=== PATIENT | male | born 1945 | race Caucasian/White ===

== ENCOUNTER 2017-02-20 21:57 | Emergency (ER) | payer MEDICARE ==
[~2017-02-20] VITALS: Ht 167.6 cm; Wt 63.0 kg
[~2017-02-20 21:57] MED LIST: ASPI81TA2 PO; ATOR40TA64 PO; BISO5TAB2 PO; CLOP75TA33 PO; FERR-70 PO; NITR0.4T39 SL; PANT40TA27 PO; TAMS0.4C47 PO; [UNRECOGNIZED DRUG - CODE] PO CHEW
--- OUTSIDE RECORDS SUMMARY | 2017-02-20 22:01 | XMS REPORT | Referral Summary ---
Author Author [facility] Organization [facility] Address Unknown Phone Unavailable Care Team Providers Care Splitter Hand Name Role Phone Ashley Vizcaino Primary Care Physician [phone] Encounter VC Date(s): 07/13/16 - 07/13/16 [facility] [address] [place] [address]- Discharge Diagnosis: CAP (community acquired pneumonia) Discharge Diagnosis: Anemia Discharge Diagnosis: Cancer of colon Discharge Diagnosis: GERD without esophagitis Discharge Diagnosis: History of BPH w/prostatism & overactive bladder Discharge Diagnosis: Hypertension NOS Discharge Diagnosis: ED (erectile dysfunction) Discharge Diagnosis: Elevated cholesterol Discharge Diagnosis: Depression Discharge Diagnosis: COPD, mild Discharge Disposition: 01-Home or Self Care Attending Physician: Pop Vizcaino MD Admitting Physician: Pop Vizcaino MD Vital Signs Most recent to 1 oldest [Reference Range]: Blood Pressure 130/80 mmHg [90-140/60-90 mmHg] (07/13/16 9:49 AM) Problem List Condition Effective Dates Status Health Status Informant Anemia(Confirmed) Active Cardenas's Active esophagus(Confirmed) Hypertension Active NOS(Confirmed) GERD without Active esophagitis(Confirme d) History of BPH Active w/prostatism & overactive bladder(Confirmed) History of nocturia Active and irregular prostate gland(Confirmed) ED (erectile Active dysfunction)(Confirm ed) Insomnia(Confirmed) Active Cancer of Active colon(Confirmed) Cancer of Active colon(Confirmed) COPD, Active mild(Confirmed) Depression(Confirmed Active ) Elevated Active cholesterol(Confirme d) Skin tag(Confirmed) Active Tobacco Active patient user(Confirmed) Allergies, Adverse Reactions, Alerts Substance Reaction Severity Status acetaminophen Active HYDROcodone Active Medications Aspirin Low Dose 81 mg, Oral, Daily, 0 Refill(s) Start Date: 12/12/14 Status: Ordered CeleXA 10 mg oral tablet 10 mg 1 tabs, Oral, Daily, # 30 tabs, 0 Refill(s), Pharmacy: [id number], 1 tabs Oral Daily Start Date: 06/29/16 Status: Ordered Cialis 5 mg oral tablet 1 tabs, Oral, Daily, as needed for erectile dysfunction, # 20 tabs, 0 Refill(s) , 1 tabs Oral Daily,PRN:as needed for erectile dysfunction Start Date: 10/25/14 Status: Ordered simvastatin 40 mg oral tablet See Instructions, TAKE 1 TABLET EVERY DAY, # 30 tabs, 0 Refill(s), Pharmacy: [facility], TAKE 1 TABLET EVERY DAY Start Date: 06/28/16 Status: Ordered tamsulosin 0.4 mg oral capsule See Instructions, TAKE 1 CAPSULE ONE TIME DAILY AT BEDTIME (NEED APPOINTMENT BEFORE ADDITIONAL REFILLS WILL BE SENT), # 30 caps, 0 Refill(s), Pharmacy: [facility], TAKE 1 CAPSULE ONE TIME DAILY AT BEDTIME (NEED APPOINTMENT BEFORE AD... Start Date: 06/28/16 Status: Ordered triamcinolone 0.1% topical cream 1 stacey, Topical, BID, Rash, # 30 g, 0 Refill(s), Pharmacy: [id number] Start Date: 04/24/14 Status: Ordered Viagra 100 mg oral tablet 1 tabs, Oral, Daily, as needed for erectile dysfunction, # 12 tabs, 3 Refill(s) , Pharmacy: [id number], 1 tabs Oral Daily,PRN:as needed for erectile dysfunction Start Date: 01/01/15 Status: Ordered Vitamin D with Minerals oral tablet 1 tabs, Oral, Daily, # 90 tabs, 0 Refill(s) Start Date: 04/23/14 Status: Ordered Results No data available for this section Immunizations Vaccine Date Refusal Reason influenza virus vaccine, inactivated 06/27/15 influenza virus vaccine, live 07/11/13 influenza virus vaccine, live 07/05/12 pneumococcal 13-valent conjugate vaccine 06/27/15 pneumococcal 23-polyvalent vaccine 06/05/10 pneumococcal 23-polyvalent vaccine 04/29/00 tetanus-diphth toxoids (Td) adult/adol 11/17/10 tetanus-diphth toxoids (Td) adult/adol 04/29/00 zoster vaccine live 11/01/07 Procedures Procedure Date Related Diagnosis Body Site Esophagogastroduodenoscopy 01/17/15 Laparoscopy1 01/17/15 Laparoscopic Jackie fundoplication using 01/09/15 abdominal approach2 Motility Esophageal3 12/12/14 Esophagogastroduodenoscopy and biopsy4 11/21/14 Colonoscopy 03/25/08 Esophagogastroduodenoscopy5 03/25/08 Colectomy 2004 appendectomy6 colonoscopy7 hernia repair x 28 left heel surgery9 Repair-hernia 1lysis of adhesions 2Large paraesophageal hernia repair with mesh and Jackie 3auto-populated from documented surgical case 4Positive for Cardenas's, 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 EGD and upper GI with contrast indicates nearly complete intrathoracic stomach with small amount of rotation along the long axis of the stomach. Return to clinic to talk about Jackie 5EGD with mil nonspecific chronic inflammation. Personal history for Cardenas' s. Plan repeat EGD in 3 years [id number] 7in 2010 [id number] 9crushing injury- screws and plates in 2003 Social History Social History Type Response Smoking Status Former smoker; Type: Oral1 1DC 1996 Assessment and Plan Extracted from: Title: Ambulatory Patient Education Author: Pop Vizcaino MD Date: Family Medicine Asthma, Adult Asthma is a recurring condition in which the airways tighten and narrow. Asthma can make it difficult to breathe. It can cause coughing, wheezing, and shortness of breath. Asthma episodes, also called asthma attacks, range from minor to life-threatening. Asthma cannot be cured, but medicines and lifestyle changes can help control it. CAUSES Asthma is believed to be caused by inherited (genetic) and environmental factors , but its exact cause is unknown. Asthma may be triggered by allergens, lung infections, or irritants in the air. Asthma triggers are different for each person. Common triggers include: Animal dander. Dust mites. Cockroaches. Pollen from trees or grass. Mold. Smoke. Air pollutants such as dust, household sociology faculty member, hair sprays, aerosol sprays, paint fumes, strong chemicals, or strong odors. Cold air, weather changes, and winds (which increase molds and pollens in the air). Strong emotional expressions such as crying or laughing hard. Stress. Certain medicines (such as aspirin) or types of drugs (such as beta- blockers). Sulfites in foods and drinks. Foods and drinks that may contain sulfites include dried fruit, potato chips, and sparkling grape juice. Infections or inflammatory conditions such as the flu, a cold, or an inflammation of the nasal membranes (rhinitis). Gastroesophageal reflux disease (GERD). Exercise or strenuous activity. SYMPTOMS Symptoms may occur immediately after asthma is triggered or many hours later. Symptoms include: Wheezing. Excessive nighttime or world language teacher coughing. Frequent or severe coughing with a common cold. Chest tightness. Shortness of breath. DIAGNOSIS The diagnosis of asthma is made by a review of your medical history and a physical exam. Tests may also be performed. These may include: Lung function studies. These tests show how much air you breathe in and out. Allergy tests. Imaging tests such as X-rays. TREATMENT Asthma cannot be cured, but it can usually be controlled. Treatment involves identifying and avoiding your asthma triggers. It also involves medicines. There are 2 classes of medicine used for asthma treatment: Controller medicines. These prevent asthma symptoms from occurring. They are usually taken every day. Reliever or rescue medicines. These quickly relieve asthma symptoms. They are used as needed and provide short-term relief. Your health care provider will help you create an asthma action plan. An asthma action plan is a written plan for managing and treating your asthma attacks. It includes a list of your asthma triggers and how they may be avoided. It also includes information on when medicines should be taken and when their dosage should be changed. An action plan may also involve the use of a device called a peak flow meter. A peak flow meter measures how well the lungs are working. It helps you monitor your condition. HOME CARE INSTRUCTIONS Take medicines only as directed by your health care provider. Speak with your health care provider if you have questions about how or when to take the medicines. Use a peak flow meter as directed by your health care provider. Record and keep track of readings. Understand and use the action plan to help minimize or stop an asthma attack without needing to seek medical care. Control your home environment in the following ways to help prevent asthma attacks: Do not smoke. Avoid being exposed to secondhand smoke. Change your heating and air conditioning filter regularly. Limit your use of fireplaces and wood stoves. Get rid of pests (such as roaches and mice) and their droppings. Throw away plants if you see mold on them. Clean your floors and dust regularly. Use unscented cleaning products. Try to have someone else vacuum for you regularly. Stay out of rooms while they are being vacuumed and for a short while afterward. If you vacuum, use a dust mask from a hardware store, a double-layered or microfilter vacuum housekeeping cleaner bag, or a vacuum housekeeping cleaner with a HEPA filter. Replace carpet with wood, tile, or vinyl luisa. Carpet can trap dander and dust. Use allergy-proof pillows, mattress covers, and box spring covers. Wash bed sheets and blankets every week in hot water and dry them in a dryer. Use blankets that are made of polyester or cotton. Clean bathrooms and ashu with bleach. If possible, have someone repaint the valdez in these rooms with mold-resistant paint. Keep out of the rooms that are being cleaned and painted. Wash hands frequently. SEEK MEDICAL CARE IF: You have wheezing, shortness of breath, or a cough even if taking medicine to prevent attacks. The colored mucus you cough up (sputum) is thicker than usual. Your sputum changes from clear or white to yellow, green, rosas, or bloody. You have any problems that may be related to the medicines you are taking (such as a rash, itching, swelling, or trouble breathing). You are using a reliever medicine more than 23 times per week. Your peak flow is still at 5079% of your personal best after following your action plan for 1 hour. You have a fever. SEEK IMMEDIATE MEDICAL CARE IF: You seem to be getting worse and are unresponsive to treatment during an asthma attack. You are short of breath even at rest. You get short of breath when doing very little physical activity. You have difficulty eating, drinking, or talking due to asthma symptoms. You develop chest pain. You develop a fast heartbeat. You have a bluish color to your lips or fingernails. You are light-headed, dizzy, or faint. Your peak flow is less than 50% of your personal best. MAKE SURE YOU: Understand these instructions. Will watch your condition. Will get help right away if you are not doing well or get worse. This information is not intended to replace advice given to you by your health care provider. Make sure you discuss any questions you have with your health care provider. Document Released: 09/19/2006 Document Revised: 10/10/2015 Document Reviewed: [employer] Patient Information 2016 [employer]. No follow up information was provided. Extracted from: Title: Office Visit Note Author: Pop Vizcaino MD Date: 07/13/16 Assessment/Plan Anemia Anemia on lab.Hemoccults pending. To Dr. FLORES for recheck and consideration of EGD. Cancer of colon The patient's issue is nearly or completely resolved. There is no further issues or testing desired by them at this time. CAP (community acquired pneumonia) The patient's issue is nearly or completely resolved. There is no further issues or testing desired by them at this time. CXR pending for recheck. IMPRESSION: Chronic findings of COPD similar to the prior study. There is suggestion of some minimal right upper lobe infiltrate. A short-term followup study is recommended. [1] Ordered: XR Chest 2 Views COPD, mild Stable. Ordered: XR Chest 2 Views Depression This issue was reviewed, appears stable, and current therapy continued except as mentioned. Appropriate lab was reviewed from the most recent appropriate entry and lab was ordered if needed in the cpoe/nursing orders, and follow up recommended generally in 90 days and no later then six months. Mood stable. ED (erectile dysfunction) This issue was reviewed, appears stable, and current therapy continued except as mentioned. Appropriate lab was reviewed from the most recent appropriate entry and lab was ordered if needed in the cpoe /nursing orders, and follow up recommended generally in 90 days and no later then six months. Elevated cholesterol This issue was reviewed, appears stable, and current therapy continued except as mentioned. Appropriate lab was reviewed from the most recent appropriate entry and lab was ordered if needed in the cpoe/nursing orders, and follow up recommended generally in 90 days and no later then six months. GERD without esophagitis This issue was reviewed, appears stable, and current therapy continued except as mentioned. Appropriate lab was reviewed from the most recent appropriate entry and lab was ordered if needed in the cpoe/nursing orders, and follow up recommended generally in 90 days and no later then six months. On meds. No dysphagia. History of BPH w/prostatism & overactive bladder This issue was reviewed, appears stable, and current therapy continued except as mentioned. Appropriate lab was reviewed from the most recent appropriate entry and lab was ordered if needed in the cpoe/nursing orders, and follow up recommended generally in 90 days and no later then six months. Hypertension NOS This issue was reviewed, appears stable, and current therapy continued except as mentioned. Appropriate lab was reviewed from the most recent appropriate entry and lab was ordered if needed in the cpoe/nursing orders, and follow up recommended generally in 90 days and no later then six months. The patient reports their blood pressure has been stable at home and is not having any significant or related problems. There has been no chest pain, chest pressure, soa/chung.
--- OUTSIDE RECORDS SUMMARY | 2017-02-20 22:01 | XMS REPORT | Referral Summary ---
Author Author [facility] Organization [facility] Address Unknown Phone Unavailable Care Team Providers Care Second Grade Teacher Name Role Phone Ashley Vizcaino Primary Care Physician [phone] Encounter VC Date(s): 10/27/16 - 10/27/16 [facility] [address] [place] [address] [place] [address] [place] Discharge Diagnosis: Coronary heart disease Discharge Diagnosis: Hypercholesteremia Discharge Diagnosis: History of percutaneous coronary intervention Discharge Diagnosis: Chronic GERD Discharge Disposition: -Home or Self Care Attending Physician: Freddie Mclaughlin MD Admitting Physician: Freddie Mclaughlin MD Referring Physician: Pop Vizcaino MD Vital Signs Most recent to 1 oldest [Reference Range]: Peripheral Pulse 70 bpm Rate [60-100 bpm] (10/27/16 10:37 AM) Blood Pressure 104/60 mmHg [90-140/60-90 mmHg] (10/27/16 10:37 AM) Problem List Condition Effective Dates Status Health Status Informant Anemia(Confirmed) Active CAD (coronary artery Active disease)(Confirmed) Cardenas's Active esophagus(Confirmed) Abnormal blood Active sugar(Confirmed) Chest Active pain(Confirmed) Hypertension Active NOS(Confirmed) GERD without Active esophagitis(Confirme d) Chronic Active GERD(Confirmed) History of BPH Active w/prostatism & overactive bladder(Confirmed) History of nocturia Active and irregular prostate gland(Confirmed) History of Active percutaneous coronary intervention(Confirm ed) Hypercholesteremia(C Active onfirmed) ED (erectile Active dysfunction)(Confirm ed) Insomnia(Confirmed) Active Cancer of Active colon(Confirmed) Cancer of Active colon(Confirmed) COPD, Active mild(Confirmed) Depression(Confirmed Active ) Osteoarthritis(Confi Active rmed) Elevated Active cholesterol(Confirme d) Skin tag(Confirmed) Active Tobacco Active patient user(Confirmed) Allergies, Adverse Reactions, Alerts Substance Reaction Severity Status HYDROcodone Active Medications Aspirin Low Dose 81 mg, Oral, Daily, 0 Refill(s) Start Date: 12/12/14 Status: Ordered atorvastatin 40 mg oral tablet 40 mg 1 tabs, Oral, Bedtime (once a day), # 90 tabs, 5 Refill(s), Pharmacy: [facility], 1 tabs Oral Bedtime (once a day) Start Date: 09/15/16 Status: Ordered bisoprolol 5 mg oral tablet 2.5 mg 0.5 tabs, Oral, Daily, # 45 tabs, 5 Refill(s), Pharmacy: [facility], 0.5 tabs Oral Daily Start Date: 10/27/16 Status: Ordered ferrous sulfate 325 mg (65 mg elemental iron) oral tablet 325 mg 1 tabs, Oral, BID, # 180 tabs, 0 Refill(s), Pharmacy: [facility], 1 tabs Oral BID Start Date: 10/18/16 Status: Ordered nitroglycerin 0.4 mg sublingual tablet 0.4 mg 1 tabs, SubLingual, q5min, Angina/Chest Pain, # 100 tabs, 3 Refill(s), Pharmacy: [facility], 1 tabs SubLingual q5min,PRN:Angina/ Chest Pain Start Date: 09/15/16 Status: Ordered pantoprazole 40 mg oral delayed release tablet 40 mg 1 tabs, Oral, BID, # 90 tabs, 5 Refill(s), Pharmacy: [facility], 1 tabs Oral BID Start Date: 10/27/16 Status: Ordered Plavix 75 mg oral tablet 75 mg 1 tabs, Oral, Daily, # 90 tabs, 5 Refill(s), Pharmacy: [facility], 1 tabs Oral Daily Start Date: 09/15/16 Status: Ordered tamsulosin 0.4 mg oral capsule 0.4 mg 1 caps, Oral, Bedtime (once a day), # 90 caps, 1 Refill(s), Pharmacy: [facility], 1 caps Oral Bedtime (once a day) Start Date: 07/29/16 Status: Ordered Vitamin D with Minerals oral tablet 1 tabs, Oral, Daily, # 90 tabs, 0 Refill(s) Start Date: 04/23/14 Status: Ordered Results No data available for this section Immunizations Given and Recorded Vaccine Date Status Refusal Reason influenza virus vaccine, inactivated 07/29/16 Given influenza virus vaccine, inactivated 06/27/15 Recorded influenza virus vaccine, live 07/11/13 Given influenza virus vaccine, live 07/05/12 Given pneumococcal 13-valent conjugate vaccine 06/27/15 Recorded pneumococcal 23-polyvalent vaccine 07/29/16 Given pneumococcal 23-polyvalent vaccine 06/05/10 Recorded pneumococcal 23-polyvalent vaccine 04/29/00 Recorded tetanus-diphth toxoids (Td) adult/adol 11/17/10 Given tetanus-diphth toxoids (Td) adult/adol 04/29/00 Given zoster vaccine live 11/01/07 Given Procedures Procedure Date Related Diagnosis Body Site Catheterization Heart Coronary Intervention1 09/14/16 Catheterization Left Heart with Coronary 09/14/16 Angiography (Right, Groin)2 Esophagogastroduodenoscopy 01/17/15 Laparoscopy3 01/17/15 Laparoscopic Jackie fundoplication using 01/09/15 abdominal approach4 Motility Esophageal5 12/12/14 Esophagogastroduodenoscopy and biopsy6 11/21/14 Colonoscopy 03/25/08 Esophagogastroduodenoscopy7 03/25/08 Colectomy 2004 appendectomy8 Cataract extraction colonoscopy9 hernia repair x 210 left heel Repair-hernia Vasectomy 1auto-populated from documented surgical case 2auto-populated from documented surgical case 3lysis of adhesions 4Large paraesophageal hernia repair with mesh and Jackie 5auto-populated from documented surgical case 6Positive for Cardenas's, 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 EGD and upper GI with contrast indicates nearly complete intrathoracic stomach with small amount of rotation along the long axis of the stomach. Return to clinic to talk about Jackie 7EGD with mil nonspecific chronic inflammation. Personal history for Cardenas' s. Plan repeat EGD in 3 years [id number] 9in 2010 [id number] 11crushing injury- screws and plates in 2003 Social History Social History Type Response Smoking Status Former smoker; Type: Oral1 1DC 1996 Assessment and Plan Extracted from: Title: Office Visit Note Author: Freddie Mclaughlin MD Date: 10/27/16 Assessment/Plan 1.Coronary heart disease 2.History of percutaneous coronary intervention 3.Hypercholesteremia 4.Chronic GERD Discussion: It appears that he has achieved an excellent result. I increased his proton pump inhibitor to twice a day. I didn't make any other changes. I advised a follow-up visit in 4-6 months or any time as necessary.
--- OUTSIDE RECORDS SUMMARY | 2017-02-20 22:01 | XMS REPORT | Referral Summary ---
Author Author [facility] Organization [facility] Address Unknown Phone Unavailable Care Team Providers Care Christian Counselor Name Role Phone Ashley Vizcaino Primary Care Physician [phone] Encounter VC Date(s): 02/26/15 - 02/26/15 [facility] [address] [place] [address]- Discharge Disposition: 01-Home or Self Care Attending Physician: Pop Vizcaino MD Admitting Physician: Pop Vizcaino MD Vital Signs Most recent to 1 oldest [Reference Range]: Blood Pressure 112/70 mmHg [90-140/60-90 mmHg] (02/26/15 10:54 AM) Problem List Condition Effective Dates Status Health Status Informant Cardenas's Active esophagus(Confirmed) Hypertension Active NOS(Confirmed) GERD without Active esophagitis(Confirme d) History of BPH Active w/prostatism & overactive bladder(Confirmed) History of nocturia Active and irregular prostate gland(Confirmed) ED (erectile Active dysfunction)(Confirm ed) Insomnia(Confirmed) Active Cancer of Active colon(Confirmed) Cancer of Active colon(Confirmed) Elevated Active cholesterol(Confirme d) Skin tag(Confirmed) Active Tobacco Active patient user(Confirmed) Allergies, Adverse Reactions, Alerts Substance Reaction Severity Status acetaminophen Active HYDROcodone Active Medications Aspirin Low Dose 81 mg, Oral, Daily, 0 Refill(s) Start Date: 12/12/14 Status: Ordered Carafate 1 g/10 mL oral suspension 1 g 10 mL, Oral, QIDACHS, # 1,200 mL, 0 Refill(s), Pharmacy: [id number], 10 mL Oral QIDACHS,x30 days Start Date: 02/26/15 Stop Date: 03/28/15 Status: Ordered Cialis 5 mg oral tablet 1 tabs, Oral, Daily, as needed for erectile dysfunction, # 20 tabs, 0 Refill(s) , 1 tabs Oral Daily,PRN:as needed for erectile dysfunction Start Date: 10/25/14 Status: Ordered omeprazole 40 mg oral delayed release capsule 40 mg 1 caps, Oral, BID, Note dose increase., X 90 days, # 180 caps, 3 Refill(s) , 1 caps Oral BID,x90 days,Instr:Note dose increase. Start Date: 07/08/15 Stop Date: 07/02/16 Status: Ordered Reglan 10 mg oral tablet 10 mg 1 tabs, Oral, QID, # 120 tabs, 0 Refill(s), Pharmacy: [facility] [id number], 1 tabs Oral QID Start Date: 03/05/15 Status: Ordered Remeron 15 mg oral tablet See Instructions, 1 TABS ORAL BEDTIME (ONCE A DAY), # 30 tabs, 2 Refill(s), eRx : [facility] [id number], 1 TABS ORAL BEDTIME (ONCE A DAY) Start Date: 05/07/15 Status: Ordered simvastatin 40 mg oral tablet 1 tabs, Oral, Daily, X 90 days, # 90 tabs, 3 Refill(s), Pharmacy: [facility] , 1 tabs Oral Daily,x90 days Start Date: 10/09/14 Stop Date: 10/04/15 Status: Ordered tamsulosin 0.4 mg oral capsule 1 caps, Oral, Bedtime (once a day), X 90 days, # 90 caps, 3 Refill(s), Pharmacy : [facility], 1 caps Oral Bedtime (once a day),x90 days Start Date: 10/09/14 Stop Date: 10/04/15 Status: Ordered triamcinolone 0.1% topical cream 1 stacey, Topical, BID, Rash, # 30 g, 0 Refill(s), Pharmacy: [facility] [id number] Start Date: 04/24/14 Status: Ordered Viagra 100 mg oral tablet 1 tabs, Oral, Daily, as needed for erectile dysfunction, # 12 tabs, 3 Refill(s) , Pharmacy: [facility] [id number], 1 tabs Oral Daily,PRN:as needed for erectile [...] s. Plan repeat EGD in 3 years 12629 7in 2010 27523 9crushing injury- screws and plates in 2003 Social History Social History Type Response Smoking Status Former smoker; Type: Oral1 1DC 1996 Assessment and Plan Extracted from: Title: Ambulatory Patient Education Author: Pop Vizcaino MD Date: Family Medicine Arterial Hypertension Arterial hypertension (high blood pressure ) is a condition of elevated pressure in your blood vessels. Hypertension over a long period of time is a risk factor for strokes, heart attacks, and heart failure. It is also the leading cause of kidney (renal ) failure. CAUSES In Adults -- Over 90% of all hypertension has no known cause. This is called essential or primary hypertension. In the other 10% of people with hypertension, the increase in blood pressure is caused by another disorder. This is called secondary hypertension . Important causes of secondary hypertension are: Heavy alcohol use. Obstructive sleep apnea. Hyperaldosterosim (Conn's syndrome). Steroid use. Chronic kidney failure. Hyperparathyroidism. Medications. Renal artery stenosis. Pheochromocytoma. Ishpeming's disease. Coarctation of the aorta. Scleroderma renal crisis. Licorice (in excessive amounts). Drugs (cocaine, methamphetamine). Your caregiver can explain any items above that apply to you. In Children -- Secondary hypertension is more common and should always be considered. -- Few women of childbearing age have high blood pressure. However, up to 10% of them develop hypertension of . Generally, this will not harm the woman. It may be a sign of 3 complications of : preeclampsia, HELLP syndrome, and eclampsia. Follow up and control with medication is necessary. SYMPTOMS This condition normally does not produce any noticeable symptoms. It is usually found during a routine exam. Malignant hypertension is a late problem of high blood pressure. It may have the following symptoms: Headaches. Blurred vision. End-organ damage (this means your kidneys, heart, lungs, and other organs are being damaged). Stressful situations can increase the blood pressure. If a person with normal blood pressure has their blood pressure go up while being seen by their caregiver, this is often termed "white coat hypertension." Its importance is not known. It may be related with eventually developing hypertension or complications of hypertension. Hypertension is often confused with mental tension, stress, and anxiety. DIAGNOSIS The diagnosis is made by 3 separate blood pressure measurements. They are taken at least 1 week apart from each other. If there is organ damage from hypertension, the diagnosis may be made without repeat measurements. Hypertension is usually identified by having blood pressure readings: Above 140/90 mmHg measured in both arms, at 3 separate times, over a couple weeks. Over 130/80 mmHg should be considered a risk factor and may require treatment in patients with diabetes. Blood pressure readings over 120/80 mmHg are called "pre-hypertension" even in non-diabetic patients. To get a true blood pressure measurement, use the following guidelines. Be aware of the factors that can alter blood pressure readings. Take measurements at least 1 hour after caffeine. Take measurements 30 minutes after smoking and without any stress. This is another reason to quit smoking it raises your blood pressure. Use a proper cuff size. Ask your caregiver if you are not sure about your cuff size. Most home blood pressure cuffs are automatic. They will measure systolic and diastolic pressures. The systolic pressure is the pressure reading at the start of sounds. Diastolic pressure is the pressure at which the sounds disappear. If you are elderly, measure pressures in multiple postures. Try sitting, lying or standing. Sit at rest for a minimum of 5 minutes before taking measurements. You should not be on any medications like decongestants. These are found in many cold medications. Record your blood pressure readings and review them with your caregiver. If you have hypertension: Your caregiver may do tests to be sure you do not have secondary hypertension (see "causes" above). Your caregiver may also look for signs of metabolic syndrome. This is also called Syndrome X or Insulin Resistance Syndrome. You may have this syndrome if you have type 2 diabetes, abdominal obesity, and abnormal blood lipids in addition to hypertension. Your caregiver will take your medical and family history and perform a physical exam. Diagnostic tests may include blood tests (for glucose, cholesterol, potassium, and kidney function), a urinalysis, or an EKG. Other tests may also be necessary depending on your condition. PREVENTION There are important lifestyle issues that you can adopt to reduce your chance of developing hypertension: Maintain a normal weight. Limit the amount of salt (sodium ) in your diet. Exercise often. Limit alcohol intake. Get enough potassium in your diet. Discuss specific advice with your caregiver. Follow a DASH diet (dietary approaches to stop hypertension). This diet is rich in fruits, vegetables, and low-fat dairy products, and avoids certain fats. PROGNOSIS Essential hypertension cannot be cured. Lifestyle changes and medical treatment can lower blood pressure and reduce complications. The prognosis of secondary hypertension depends on the underlying cause. Many people whose hypertension is controlled with medicine or lifestyle changes can live a normal, healthy life. RISKS AND COMPLICATIONS While high blood pressure alone is not an illness, it often requires treatment due to its short- and long-term effects on many organs. Hypertension increases your risk for: CVAs or strokes (cerebrovascular accident ). Heart failure due to chronically high blood pressure (hypertensive cardiomyopathy ). Heart attack (myocardial infarction ). Damage to the retina (hypertensive retinopathy ). Kidney failure (hypertensive nephropathy ). Your caregiver can explain list items above that apply to you. Treatment of hypertension can significantly reduce the risk of complications. TREATMENT For overweight patients, weight loss and regular exercise are recommended. Physical fitness lowers blood pressure. Mild hypertension is usually treated with diet and exercise. A diet rich in fruits and vegetables, fat-free dairy products, and foods low in fat and salt (sodium ) can help lower blood pressure. Decreasing salt intake decreases blood pressure in a 1/3 of people. Stop smoking if you are a smoker. The steps above are highly effective in reducing blood pressure. While these actions are easy to suggest, they are difficult to achieve. Most patients with moderate or severe hypertension end up requiring medications to bring their blood pressure down to a normal level. There are several classes of medications for treatment. Blood pressure pills (antihypertensives ) will lower blood pressure by their different actions. Lowering the blood pressure by 10 mmHg may decrease the risk of complications by as much as 25%. The goal of treatment is effective blood pressure control. This will reduce your risk for complications. Your caregiver will help you determine the best treatment for you according to your lifestyle. What is excellent treatment for one person, may not be for you. HOME CARE INSTRUCTIONS Do not smoke. Follow the lifestyle changes outlined in the "Prevention" section. If you are on medications, follow the directions carefully. Blood pressure medications must be taken as prescribed. Skipping doses reduces their benefit. It also puts you at risk for problems. Follow up with your caregiver, as directed. If you are asked to monitor your blood pressure at home, follow the guidelines in the "Diagnosis" section above. SEEK MEDICAL CARE IF: You think you are having medication side effects. You have recurrent headaches or lightheadedness. You have swelling in your ankles. You have trouble with your vision. SEEK IMMEDIATE MEDICAL CARE IF: You have sudden onset of chest pain or pressure, difficulty breathing, or other symptoms of a heart attack. You have a severe headache. You have symptoms of a stroke (such as sudden weakness, difficulty speaking , difficulty walking). MAKE SURE YOU: Understand these instructions. Will watch your condition. Will get help right away if you are not doing well or get worse. Document Released: 09/19/2006 Document Revised: 12/11/2012 Document Reviewed: Exit[employer] Patient Information 2014 [employer]. No follow up information was provided. Extracted from: Title: Office Visit Note Author: Pop Vizcaino MD Date: 02/26/15 Assessment/Plan Acute depression Trial of remeron 15mg po qhs. The patient has family members present who are agreeable with today's plan and have no additional concerns or requests. here.Consider therapy if needed. Call for any SIs. Cancer of colon The patient's issue is nearly or completely resolved. There is no further issues or testing desired by them at this time. GERD without esophagitis This issue is stable and appropriate refills, lab, and f/u have been discussed. Hypertension NOS This issue is stable and appropriate refills, lab, and f/u have been discussed. The patient reports their blood pressure has been stable at home and is not having any significant or related problems. There has been no chest pain, chest pressure, soa/chung. Insomnia Remeron hopefully will be effective to help with his mood, insomnia, and possibly wt gain/appetite. Call report for any intolerance. Side effects discussed. May titrate if needed to 30 and 45. Nausea Seeing .
--- OUTSIDE RECORDS SUMMARY | 2017-02-20 22:01 | XMS REPORT | Referral Summary ---
Author Author [facility] Organization [facility] Address Unknown Phone Unavailable Care Team Providers Care Student Affairs Dean Name Role Phone Ashley Vizcaino Primary Care Physician [phone] Encounter Date(s): 09/03/16 - 09/03/16 [facility] [address] [place] [address] Discharge Disposition: 01-Home or Self Care Attending Physician: Freddie Mclaughlin MD Admitting Physician: Freddie Mclaughlin MD Referring Physician: Freddie Mclaughlin MD Vital Signs Most recent to 1 oldest [Reference Range]: Peripheral Pulse 53 bpm Rate [60-100 bpm] *LOW* (09/03/16 1:36 PM) Blood Pressure 114/82 mmHg [90-140/60-90 mmHg] (09/03/16 1:36 PM) Problem List Condition Effective Dates Status Health [...] 0 Refill(s) Start Date: 12/12/14 Status: Ordered bisoprolol 5 mg oral tablet 2.5 mg 0.5 tabs, Oral, Daily, # 45 tabs, 0 Refill(s), Pharmacy: [facility], 0.5 tabs Oral Daily Start Date: 08/24/16 Status: Ordered ferrous sulfate 325 mg (65 mg elemental iron) oral tablet 325 mg 1 tabs, Oral, BID, # 180 tabs, 0 Refill(s), Pharmacy: [facility], 1 tabs Oral BID Start Date: 07/20/16 Status: Ordered simvastatin 40 mg oral tablet 40 mg 1 tabs, Oral, Bedtime (once a day), # 90 tabs, 1 Refill(s), Pharmacy: [facility], 1 tabs Oral Bedtime (once a day) Start Date: 07/29/16 Status: Ordered tamsulosin 0.4 mg oral capsule 0.4 mg 1 caps, Oral, Bedtime (once a day), # 90 caps, 1 Refill(s), Pharmacy: [facility], 1 caps Oral Bedtime (once a day) Start Date: 07/29/16 Status: Ordered triamcinolone 0.1% topical cream 1 stacey, Topical, BID, Rash, # 30 g, 0 Refill(s), Pharmacy: [facility] [id number] Start Date: 04/24/14 Status: Ordered Vitamin D with Minerals oral tablet 1 tabs, Oral, Daily, # 90 tabs, 0 Refill(s) Start Date: 04/23/14 Status: Ordered Results No data available for this section Immunizations Vaccine Date Refusal Reason influenza virus vaccine, inactivated 07/29/16 influenza virus vaccine, inactivated 06/27/15 influenza virus vaccine, live 07/11/13 influenza virus vaccine, live 07/05/12 pneumococcal 13-valent conjugate vaccine 06/27/15 pneumococcal 23-polyvalent vaccine 07/29/16 pneumococcal 23-polyvalent vaccine 06/05/10 pneumococcal 23-polyvalent vaccine [...] s. Plan repeat EGD in 3 years 00958 7in 2010 67345 9crushing injury- screws and plates in 2003 Social History Social History Type Response Smoking Status Former smoker; Type: Oral1 1DC 1996 Assessment and Plan No data available for this section
--- OUTSIDE RECORDS SUMMARY | 2017-02-20 22:01 | XMS REPORT | Referral Summary ---
Author Author [facility] Organization [facility] Address Unknown Phone Unavailable Care Team Providers Care Washer Engineer Name Role Phone Ashley Vizcaino Primary Care Physician [phone] Encounter VC Date(s): 03/05/15 - 03/05/15 [facility] [address] [place] [address] [place] [address]- Discharge Diagnosis: Vomiting Discharge Disposition: 01-Home or Self Care Attending Physician: Myron Shine MD Admitting Physician: Myron Shine MD Referring Physician: Pop Vizcaino MD Vital Signs Most recent to 1 oldest [Reference Range]: Temperature Tympanic 37 degC [36.6-38.1 degC] (03/05/15 11:06 AM) Peripheral Pulse 84 bpm Rate [60-100 bpm] (03/05/15 11:06 AM) Respiratory Rate 16 br/min [14-20 br/min] (03/05/15 11:06 AM) Blood Pressure 114/68 mmHg [90-140/60-90 mmHg] (03/05/15 11:06 AM) Problem List Condition Effective Dates Status [...] QIDACHS, # 1,200 mL, 0 Refill(s), Pharmacy: [facility] [id number], 10 mL Oral QIDACHS,x30 days Start Date: [...] QID, # 120 tabs, 0 Refill(s), Pharmacy: [facility] [id number], 1 tabs Oral QID Start Date: 03/05/15 Status: Ordered Remeron 15 mg oral tablet See Instructions, 1 TABS ORAL BEDTIME (ONCE A DAY), # 30 tabs, 2 Refill(s), eRx : [facility] [id number], 1 TABS ORAL BEDTIME (ONCE A DAY) [...] Rash, # 30 g, 0 Refill(s), Pharmacy: [facility] [id number] Start Date: 04/24/14 Status: Ordered Viagra 100 mg oral tablet 1 tabs, Oral, Daily, as needed for erectile dysfunction, # 12 tabs, 3 Refill(s) , Pharmacy: [facility] [id number], 1 tabs Oral Daily,PRN:as needed for erectile [...] s. Plan repeat EGD in 3 years 29279 7in 2010 92203 9crushing injury- screws and plates in 2003 Social History Social History Type Response Smoking Status Former smoker; Type: Oral1 1DC 1996 Assessment and Plan Extracted from: Title: Office Visit Note Author: Myron Shine MD Date: 03/05/15 Assessment/Plan Vomiting Ordered: Postoperative Est 25330 Plan: Esophagram with upper GI. I informed the patient that I am concerned that he is progressing so slowly. He did have a very complicated postoperative course however and there was a period of time that I thought that he may pass away from this postoperative complications. It is therefore perhaps not unexpected that his recovery has been so prolonged. Nonetheless to further evaluate his ongoing vomiting and poor oral intake like to go ahead and proceed by obtaining an esophagram and upper GI to [facility]. I encouraged the patient to begin to utilize his gastrostomy tube for additional caloric intake. He was instructed to place 2-3 cans of insure or boost through his gastrostomy tube on a daily basis in addition to his meals. I would avoid meat type of oral intake or additional fluid through his gastrostomy tube after 6 o'clock in the evening. I encouraged him to sleep somewhat propped up to prevent reflux/ vomiting. Patient was returned to return to the clinic at a one week interval or sooner if problems should arise.
--- OUTSIDE RECORDS SUMMARY | 2017-02-20 22:01 | XMS REPORT | Continuity of Care Document ---
Author Author [facility] Organization [facility] Address Unknown Phone Unavailable Support Name Relationship Address Phone CRYSTAL FRASER MD Caregiver [address] [place] [address] [place] [address] [phone] JONO OLMOS FACS, MD Caregiver [address] [place] [address] [place] [address] [phone] BUDDY RIDLEY Next Of Kin [address] [place] [address] Insurance Providers Payer Name Policy Number Subscriber Name Relationship Medicare [id number] Zack Ridley 18 Self [facility] [id number] Zack Ridley 18 Self Advance Directives Directive Response Recorded Date/Time Ordered Resuscitation Status Full Code 11/20/14 2:43pm Resuscitation Documents on File No 11/20/14 1:18pm Problems No known problems or medical conditions. Medications Medication Dose Route Sig Days/Qty Instructions Order Date Discontinued Date Status Atenolol 1 Tab PO DAILY PRN HYPERTENSION 11/20/14 Active Omeprazole 1 Cap PO DAILY 11/20/14 Active Simvastatin 40 Mg PO BEDTIME Take 1 tablet, by mouth, 1 time a day (at BEDTIME). 11/20/14 Active Tamsulosin HCl 0.4 Mg PO BEDTIME 11/20/14 Active Ergocalciferol (Vitamin D2) 1 Tab PO DAILY 11/20/14 Active Tadalafil 5 Mg PO DAILY PRN PRN ORDERS 11/21/14 Active Social History Social History Problem Response Recorded Date/Time Chewing Tobacco Status N HX OF 11/20/2014 1:14pm Hx Substance Use No 11/20/2014 1:14pm Hx Alcohol Use Y WINE OCCASIONALLY 11/20/2014 1:14pm Has the pt used tobacco in the last 12 months No 11/20/2014 1:14pm Query Response Start Date Stop Date Smoking Status Never smoker Hospital Discharge Instructions No hospital discharge instructions. Plan of Care No plan of care. Functional Status No functional status results. Allergies, Adverse Reactions, Alerts Allergen Type Severity Reaction Status Last Updated Hydrocodone Allergy Unknown Active 11/20/14 Immunizations Name Given Type Hx Influenza Vaccination Y FALL 2013 Historical Hx Pneumococcal Vaccination Y WITHIN THE PAST 5 YEARS Historical Hx Influenza Vaccination Y FALL 2013 Historical Vital Signs Acute Vital Signs Vital Response Date/Time Temperature (Fahrenheit) 96.8 deg F (96.8 - 99.1) Temperature (Calculated Celsius) 36.59390 degrees C (36.0 - 37.3) Temperature Source Temporal Pulse Rate (adult) 70 bpm (60 - 100) Respiratory Rate 16 breaths/min (10 - 20) O2 Sat by Pulse Oximetry 97 % (90 - 100) Oxygen Delivery Method Room Air Blood Pressure 146/91 mm Hg Blood Pressure Source Automatic Cuff Height 5 ft 8 in Weight 165 lb Body Mass Index 25.0 kg/m^2 Results No known relevant diagnostic tests, laboratory data and/or discharge summary. Procedures Procedure Status Date Provider(s) Esophagogastroduodenoscopy (EGD) with heater probe therapy completed JONO OLMOS MD, FACS, CWS
--- OUTSIDE RECORDS SUMMARY | 2017-02-20 22:01 | XMS REPORT | Referral Summary ---
Author Author [facility] Organization [facility] Address Unknown Phone Unavailable Care Team Providers Care Hot Knife Cutter Name Role Phone Ashley Vizcaino Primary Care Physician [phone] Encounter VC Date(s): 02/18/15 - 02/18/15 [facility] [address] [place] [address] [place] Agust[place] [id number] Discharge Diagnosis: Nausea and vomiting Discharge Diagnosis: Abdominal pain Discharge Disposition: 01-Home or Self Care Attending Physician: Myron Shine MD Admitting Physician: Myron Shine MD Referring Physician: Pop Vizcaino MD Vital Signs Most recent to 1 oldest [Reference Range]: Temperature Tympanic 36.7 degC [36.6-38.1 degC] (02/18/15 8:41 AM) Peripheral Pulse 96 bpm Rate [60-100 bpm] (02/18/15 8:41 AM) Respiratory Rate 20 br/min [14-20 br/min] (02/18/15 8:41 AM) Blood Pressure 104/64 mmHg [90-140/60-90 mmHg] (02/18/15 8:41 AM) Problem List Condition Effective Dates Status [...] QIDACHS, # 1,200 mL, 0 Refill(s), Pharmacy: [id number], 10 mL Oral QIDACHS,x30 days Start Date: [...] QID, # 120 tabs, 0 Refill(s), Pharmacy: [facility] [id number], 1 tabs Oral QID Start Date: 03/05/15 Status: Ordered Remeron 15 mg oral tablet See Instructions, 1 TABS ORAL BEDTIME (ONCE A DAY), # 30 tabs, 2 Refill(s), eRx : [id number], 1 TABS ORAL BEDTIME (ONCE A DAY) [...] Rash, # 30 g, 0 Refill(s), Pharmacy: [id number] Start Date: 04/24/14 Status: Ordered Viagra 100 mg oral tablet 1 tabs, Oral, Daily, as needed for erectile dysfunction, # 12 tabs, 3 Refill(s) , Pharmacy: [id number], 1 tabs Oral Daily,PRN:as needed for erectile dysfunction Start Date: 01/01/15 Status: Ordered Vitamin D with Minerals oral tablet 1 tabs, Oral, Daily, # 90 tabs, 0 Refill(s) Start Date: 04/23/14 Status: Ordered Results Hematology Most recent to 1 oldest [Reference Range]: WBC [5.0-10.0 13.0 10*3/uL 10*3/uL] *HI* (02/18/15 9:40 AM) RBC [3.70-5.20 2.77 10*6/uL 10*6/uL] *LOW* (02/18/15 9:40 AM) Hgb [12.0-16.0 8.2 gm/dL gm/dL] *LOW* (02/18/15 9:40 AM) Hct [40.0-54.0 %] 25.4 % *LOW* (02/18/15 9:40 AM) MCV [80.0-96.0 fL] 91.7 fL (02/18/15 9:40 AM) MCH [26.0-34.0 pg] 29.6 pg (02/18/15 9:40 AM) MCHC [32.0-36.0 32.3 gm/dL gm/dL] (02/18/15 9:40 AM) RDW [0.0-14.5 %] 14.2 % (02/18/15 9:40 AM) Platelet [150-400 605 10*3/uL 10*3/uL] *HI* (02/18/15 9:40 AM) MPV [8.8-14.8 fL] 10.2 fL (02/18/15 9:40 AM) Neutrophils [50-70 80 % %] *HI* (02/18/15 9:40 AM) Band Man [0-6 %] 6 % (02/18/15 9:40 AM) Lymphocytes [20-40 13 % %] *LOW* (02/18/15 9:40 AM) Monocytes [4-8 %] 1 % *LOW* (02/18/15 9:40 AM) Eosinophils [0-6 %] 0 % (02/18/15 9:40 AM) Basophils [0-2 %] 0 % (02/18/15 9:40 AM) Neutro Absolute 11.18 10*3 [2.50-7.00 10*3] *HI* (02/18/15 9:40 AM) Lymph Absolute 1.69 10*3 [1.00-4.00 10*3] (02/18/15 9:40 AM) [place] Absolute 0.13 10*3 [0.20-0.80 10*3] *LOW* (02/18/15 9:40 AM) Eos Absolute 0.00 10*3 [0.00-0.60 10*3] (02/18/15 9:40 AM) Baso Absolute 0.00 10*3 [0.00-0.30 10*3] (02/18/15 9:40 AM) Differential Manual *ABN* (02/18/15 9:40 AM) Immunizations Vaccine Date Refusal Reason influenza virus [...] s. Plan repeat EGD in 3 years 82616 7in 2010 61618 9crushing injury- screws and plates in 2003 Social History Social History Type Response Smoking Status Former smoker; Type: Oral1 1DC 1996 Assessment and Plan Extracted from: Title: Ambulatory Patient Education Author: Lorenza Interiano ROCK LOADER Date : 02/18/15 Family Medicine Nausea, Adult Nausea is the feeling that you have an upset stomach or have to vomit. Nausea by itself is not likely a serious concern, but it may be an early sign of more serious medical problems. As nausea gets worse, it can lead to vomiting. If vomiting develops, there is the risk of dehydration. CAUSES Viral infections. Food poisoning. Medicines. . Motion sickness. Migraine headaches. Emotional distress. Severe pain from any source. Alcohol intoxication. HOME CARE INSTRUCTIONS Get plenty of rest. Ask your caregiver about specific rehydration instructions. Eat small amounts of food and sip liquids more often. Take all medicines as told by your caregiver. SEEK MEDICAL CARE IF: You have not improved after 2 days, or you get worse. You have a headache. SEEK IMMEDIATE MEDICAL CARE IF: You have a fever. You faint. You keep vomiting or have blood in your vomit. You are extremely weak or dehydrated. You have dark or bloody stools. You have severe chest or abdominal pain. MAKE SURE YOU: Understand these instructions. Will watch your condition. Will get help right away if you are not doing well or get worse. Document Released: 10/27/2005 Document Revised: 06/13/2013 Document Reviewed: [employer] Patient Information 2014 [employer]. No follow up information was provided. Extracted from: Title: Office Visit Note Author: Lorenza Interiano ROCK LOADER Date: 02/18/15 Assessment/Plan Abdominal pain Ordered: Postoperative Est 97100 Nausea and vomiting Ordered: Postoperative Est 69331 CBC today reveals a WBC has come down to 13 compared to 16.4 yesterday. Hemoglobin is stable at 8.2 compared to 8.6 yesterday. Bands are also improving they were 26 yesterday and 6 today. Generally speaking you sounds like you are doing better. I would like you to continue to eat soft foods as tolerated. Continue with the Boost /Ensure protein supplement drink. I would like to see you and get another CBC in 2 days just to continue to follow your progress. Do not hesitate to call if you have concerns before this appointment.
--- OUTSIDE RECORDS SUMMARY | 2017-02-20 22:02 | XMS REPORT | Referral Summary ---
Author Organization Unknown Address Unknown Phone Unavailable Care Team Providers Care Pathology Technician Name Role Phone Baileeoleksandr Ashley Primary Care Physician [phone] Encounter VC Date(s): 01/15/15 - 01/15/15 [facility], [place], [address] [place] Garg [address] Discharge Diagnosis: Nausea and vomiting Discharge Diagnosis: Post-operative state Discharge Disposition: Home or Self Care Attending Physician: Myron Shine MD Admitting Physician: Myron Shine MD Vital Signs Most recent to 1 oldest [Reference Range]: Temperature Oral 37.3 degC [35.8-37.3 degC] (01/15/15 3:11 PM) Blood Pressure 122/84 mmHg [90-140/60-90 mmHg] (01/15/15 3:11 PM) Problem List Condition Effective Dates Status Health Status Informant Cardenas's Active esophagus(Confirmed) Hypertension Active NOS(Confirmed) GERD without Active esophagitis(Confirme d) History of BPH Active w/prostatism & overactive bladder(Confirmed) History of nocturia Active and irregular prostate gland(Confirmed) ED (erectile Active dysfunction)(Confirm ed) Cancer of Active colon(Confirmed) Cancer of Active colon(Confirmed) Elevated Active cholesterol(Confirme d) Skin tag(Confirmed) Active Tobacco Active patient user(Confirmed) Allergies, Adverse Reactions, Alerts Substance Reaction Severity Status acetaminophen Active HYDROcodone Active Medications Aspirin Low Dose 81 mg, Oral, Daily, 0 Refill(s) Start Date: 12/12/14 Status: Ordered Cialis 5 mg oral tablet 1 tabs, Oral, Daily, as needed for erectile dysfunction, # 20 tabs, 0 Refill(s) , 1 tabs Oral Daily,PRN:as needed for erectile dysfunction Start Date: 10/25/14 Status: Ordered omeprazole 40 mg oral delayed release capsule 1 caps, Oral, Daily, X 90 days, # 90 caps, 3 Refill(s), Pharmacy: [facility] , 1 caps Oral Daily,x90 days Start Date: 10/09/14 Stop Date: 10/04/15 Status: Ordered Reglan 10 mg oral tablet See Instructions, 1 tabs Oral FOR NAUSEA AND VOMITING NEEDED, # 30 tabs, 2 Refill(s), Pharmacy: [id number], 1 tabs Oral FOR NAUSEA AND VOMITING NEEDED Special Instructions: 1 tabs Oral FOR NAUSEA AND VOMITING NEEDED Start Date: 01/15/15 Stop Date: 02/05/15 Status: Ordered simvastatin 40 mg oral tablet 1 tabs, Oral, Daily, X 90 days, # 90 tabs, 3 Refill(s), Pharmacy: [email or web address] , 1 tabs Oral Daily,x90 days Start Date: 10/09/14 Stop Date: 10/04/15 Status: Ordered tamsulosin 0.4 mg oral capsule 1 caps, Oral, Bedtime (once a day), X 90 days, # 90 caps, 3 Refill(s), Pharmacy : [facility], 1 caps Oral Bedtime (once a day),x90 days Start Date: 10/09/14 Stop Date: 10/04/15 Status: Ordered triamcinolone 0.1% topical cream 1 stacey, Topical, BID, Rash, # 30 g, 0 Refill(s), Pharmacy: [id number] Start Date: 04/24/14 Status: Ordered Viagra 100 mg oral tablet 1 tabs, Oral, Daily, as needed for erectile dysfunction, # 12 tabs, 3 Refill(s) , Pharmacy: [id number], 1 tabs Oral Daily,PRN:as needed for erectile dysfunction Start Date: 01/01/15 Status: Ordered Vitamin D with Minerals oral tablet 1 tabs, Oral, Daily, # 90 tabs, 0 Refill(s) Start Date: 04/23/14 Status: Ordered Results Hematology Most recent to 1 oldest [Reference Range]: WBC [5.0-10.0 K/uL] 7.7 K/uL (01/15/15 4:11 PM) RBC [3.70-5.20 M/uL] 4.30 M/uL (01/15/15 4:11 PM) Hgb [12.0-16.0 14.3 gm/dL gm/dL] (01/15/15 4:11 PM) Hct [40.0-54.0 %] 41.6 % (01/15/15 4:11 PM) MCV [80.0-96.0 fL] 96.7 fL *HI* (01/15/15 4:11 PM) MCH [26.0-34.0 pg] 33.3 pg (01/15/15 4:11 PM) MCHC [32.0-36.0 34.4 gm/dL gm/dL] (01/15/15 4:11 PM) RDW [0.0-14.5 %] 12.1 % (01/15/15 4:11 PM) Platelet [150-400 248 K/uL K/uL] (01/15/15 4:11 PM) MPV [8.8-14.8 fL] 10.3 fL (01/15/15 4:11 PM) Neutrophils [50-70 75 % %] *HI* (01/15/15 4:11 PM) Lymphocytes [20-40 18 % %] *LOW* (01/15/15 4:11 PM) Monocytes [4-8 %] 6 % (01/15/15 4:11 PM) Eosinophils [0-6 %] 1 % (01/15/15 4:11 PM) Basophils [0-2 %] 0 % (01/15/15 4:11 PM) Neutro Absolute 5.74 K/uL [2.50-7.00 K/uL] (01/15/15 4:11 PM) Lymph Absolute 1.41 K/uL [1.00-4.00 K/uL] (01/15/15 4:11 PM) [place] Absolute 0.46 K/uL [0.20-0.80 K/uL] (01/15/15 4:11 PM) Eos Absolute 0.07 K/uL [0.00-0.60 K/uL] (01/15/15 4:11 PM) Baso Absolute 0.02 K/uL [0.00-0.30 K/uL] (01/15/15 4:11 PM) Immunizations Vaccine Date Refusal Reason influenza virus vaccine, live 07/11/13 influenza virus vaccine, live 07/05/12 pneumococcal 23-polyvalent vaccine 06/05/10 pneumococcal 23-polyvalent vaccine 04/29/00 tetanus-diphth toxoids (Td) adult/adol 11/17/10 tetanus-diphth toxoids (Td) adult/adol 04/29/00 zoster vaccine live 11/01/07 Procedures Procedure Date Related Diagnosis Body Site Motility Esophageal1 12/12/14 Esophagogastroduodenoscopy and biopsy2 11/21/14 Colonoscopy 03/25/08 Esophagogastroduodenoscopy3 03/25/08 Colectomy 2004 appendectomy4 colonoscopy5 hernia repair x 26 left heel surgery7 Repair-hernia 1auto-populated from documented surgical case 2Positive for Cardenas's, 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 EGD and upper GI with contrast indicates nearly complete intrathoracic stomach with small amount of rotation along the long axis of the stomach. Return to clinic to talk about Jackie 3EGD with mil nonspecific chronic inflammation. Personal history for Cardenas' s. Plan repeat EGD in 3 years 25986 5in 2010 96323 7crushing injury- screws and plates in 2003 Social History Social History Type Response Smoking Status Former smoker; Type: Oral1 1DC 1996 Assessment and Plan Extracted from: Title: Office Visit Note Author: Myron Shine MD Date: 01/15/15 Assessment/Plan Nausea and vomiting Ordered: Postoperative Est 05391 Post-operative state Ordered: Postoperative Est 16176 Plan: Proceed with radiographic and laboratory evaluation by obtaining abdominal series, Chest x-ray and CBC. CBC return revealing fourthly no element of significant leukocytosis and the white count was 7.7. Radiographically there was no evidence for a bowel obstruction. Does appear that perhaps is a component of some gastroparesis and there was still contrast noted within the stomach from his prior esophagram. Contrast however was also noted within his colon and rectum. Given the fact that he did not have any element of significant abdominal pain upon examination and upon radiographic and laboratory evaluation no marked abnormality is were noted I informed the patient that I did not feel that we needed to repeat admit him to the hospital at this time. I informed the patient to increase his omeprazole to a twice a day dosing. I also informed the patient to avoid lying flat and make sure that when he is lying down that he is "propped up on a few pillows". Encouraged the patient to consume high-protein calorie drinks such as boost or Ensure. Additionally patient was given prescription for Reglan as result of his nausea as well as perhaps to act as a prokinetic agent to help empty his gastric contents to a greater extent. Patient was informed that if he begins to feel worse or fails to improve that he should once again recontact the office. Otherwise he should return back to the office next week as scheduled for his postoperative visit.
--- OUTSIDE RECORDS SUMMARY | 2017-02-20 22:02 | XMS REPORT | Referral Summary ---
Author Author [facility] Organization [facility] Address Unknown Phone Unavailable Care Team Providers Care Bias Cutting Machine Operator Vertical Name Role Phone Ashley Vizcaino Primary Care Physician [phone] Encounter VC Date(s): 10/13/16 - 10/13/16 [facility] [address] [place]ust[place] [id number] [place] Discharge Diagnosis: CAD (coronary artery disease) Discharge Diagnosis: Hypertension NOS Discharge Diagnosis: Abnormal blood sugar Discharge Diagnosis: CAP (community acquired pneumonia) Discharge Diagnosis: COPD, mild Discharge Diagnosis: Cancer of colon Discharge Disposition: 01-Home or Self Care Attending Physician: Pop Vizcaino MD Admitting Physician: Pop Vizcaino MD Vital Signs Most recent to 1 oldest [Reference Range]: Blood Pressure 110/60 mmHg [90-140/60-90 mmHg] (10/13/16 1:51 PM) Problem List Condition Effective Dates Status [...] day), # 90 tabs, 5 Refill(s), Pharmacy: [facility], 1 tabs Oral Bedtime (once a day) Start Date: 09/15/16 Status: Ordered bisoprolol 5 mg oral tablet 2.5 mg 0.5 tabs, Oral, Daily, # 45 tabs, 0 Refill(s), Pharmacy: [facility], 0.5 tabs Oral Daily Start Date: 08/24/16 Status: Ordered ferrous sulfate 325 mg (65 mg elemental iron) oral tablet 325 mg 1 tabs, Oral, BID, # 180 tabs, 0 Refill(s), Pharmacy: [facility], 1 tabs Oral BID Start Date: 07/20/16 Status: Ordered nitroglycerin 0.4 mg sublingual tablet 0.4 mg 1 tabs, SubLingual, q5min, Angina/Chest Pain, # 100 tabs, 3 Refill(s), Pharmacy: [facility], 1 tabs SubLingual q5min,PRN:Angina/ Chest Pain Start Date: 09/15/16 Status: Ordered pantoprazole 40 mg oral delayed release tablet 40 mg 1 tabs, Oral, Daily, # 90 tabs, 5 Refill(s), Pharmacy: [facility], 1 tabs Oral Daily Start Date: 09/15/16 Status: Ordered Plavix 75 mg oral tablet 75 mg 1 tabs, Oral, Daily, # 90 tabs, 5 Refill(s), Pharmacy: [facility], 1 tabs Oral Daily Start Date: 09/15/16 Status: Ordered tamsulosin 0.4 mg oral capsule 0.4 mg 1 caps, Oral, Bedtime (once a day), # 90 caps, 1 Refill(s), Pharmacy: [facility], 1 caps Oral Bedtime [...] colonoscopy9 hernia repair x 210 left heel [id number] Repair-hernia Vasectomy 1auto-populated from documented surgical case [...] s. Plan repeat EGD in 3 years 93574 9in 2011 [id number] 11crushing injury- screws and plates in 2003 Social History Social History Type Response Smoking Status Former smoker; Type: Oral1 1DC 1996 Assessment and Plan Extracted from: Title: Ambulatory Patient Education Author: Pop Vizcaino MD Date: 08/19 Procedures Coronary Angiogram A coronary angiogram, also called coronary angiography, is an X-ray procedure used to look at the arteries in the heart. In this procedure, a dye (contrast dye) is injected through a long, hollow tube (catheter). The catheter is about the size of a piece of cooked spaghetti and is inserted through your groin, wrist, or arm. The dye is injected into each artery, and X-rays are then taken to show if there is a blockage in the arteries of your heart. LET YOUR HEALTH CARE PROVIDER KNOW ABOUT: Any allergies you have, including allergies to shellfish or contrast dye. All medicines you are taking, including vitamins, herbs, eye drops, creams, and sjfd-ero-pafdesx medicines. Previous problems you or members of your family have had with the use of anesthetics. Any blood disorders you have. Previous surgeries you have had. History of kidney problems or failure. Other medical conditions you have. RISKS AND COMPLICATIONS Generally, a coronary angiogram is a safe procedure. However, problems can occur and include: Allergic reaction to the dye. Bleeding from the access site or other locations. Kidney injury, especially in people with impaired kidney function. Stroke (rare). Heart attack (rare). BEFORE THE PROCEDURE Do not eat or drink anything after midnight the night before the procedure or as directed by your health care provider. Ask your health care provider about changing or stopping your regular medicines. This is especially important if you are taking diabetes medicines or blood thinners. PROCEDURE You may be given a medicine to help you relax (sedative) before the procedure. This medicine is given through an intravenous (IV) access tube that is inserted into one of your veins. The area where the catheter will be inserted will be washed and shaved. This is usually done in the groin but may be done in the fold of your arm (near your elbow) or in the wrist. A medicine will be given to numb the area where the catheter will be inserted (local anesthetic). The health care provider will insert the catheter into an artery. The catheter will be guided by using a special type of X-ray (fluoroscopy) of the blood vessel being examined. A special dye will then be injected into the catheter, and X-rays will be taken. The dye will help to show where any narrowing or blockages are located in the heart arteries. AFTER THE PROCEDURE If the procedure is done through the leg, you will be kept in bed lying flat for several hours. You will be instructed to not bend or cross your legs. The insertion site will be checked frequently. The pulse in your feet or wrist will be checked frequently. Additional blood tests, X-rays, and an electrocardiogram may be done. This information is not intended to replace advice given to you by your health care provider. Make sure you discuss any questions you have with your health care provider. Document Released: 03/25/2004 Document Revised: 10/10/2015 Document Reviewed: [employer] Interactive Patient Education 2016 [employer] No follow up information was provided. Extracted from: Title: Office Visit Note Author: Pop Vizcaino MD Date: 10/13/16 Assessment/Plan Abnormal blood sugar This issue was reviewed, appears stable, and current therapy continued except as mentioned. Appropriate lab was reviewed from the most recent appropriate entry and lab was ordered if needed in the cpoe/nursing orders, and follow up recommended generally in 90 days and no later then six months. CAD (coronary artery disease) This issue was reviewed, appears stable, and current therapy continued except as mentioned. Appropriate lab was reviewed from the most recent appropriate entry and lab was ordered if needed in the cpoe/nursing orders, and follow up recommended generally in 90 days and no later then six months. Seeing Cardiology. Cancer of colon The patient's issue is nearly or completely resolved. There is no further issues or testing desired by them at this time. CAP (community acquired pneumonia) The patient's issue is nearly or completely resolved. There is no further issues or testing desired by them at this time. IMPRESSION: Patchy new areas of infiltrate in the left upper lobe in the perihilar region , suspect pneumonia. No other new finding. [1] COPD, mild This issue was reviewed, appears stable, and current therapy continued except as mentioned. Appropriate lab was reviewed from the most recent appropriate entry and lab was ordered if needed in the cpoe/nursing orders, and follow up recommended generally in 90 days and no later then six months. Cough The patient's issue is nearly or completely resolved. There is no further issues or testing desired by them at this time. Ordered: XR Chest 2 Views Hypertension NOS This issue was reviewed, appears [...] been no chest pain, chest pressure, soa/chung. IMPRESSION: Patchy new areas of infiltrate in the left upper lobe in the perihilar region, suspect pneumonia. No other new finding. [1]
--- OUTSIDE RECORDS SUMMARY | 2017-02-20 22:02 | XMS REPORT | Referral Summary ---
Author Author [facility], [facility] Medicine Organization [facility] [place] Address Unknown Phone Unavailable Care Team Providers Care Encoding Machine Operator Name Role Phone Ashley Vizcaino Primary Care Physician [phone] Encounter VC Date(s): 09/29/16 - 09/29/16 [facility] [address] [place] [id number]- Discharge Diagnosis: CAP (community acquired pneumonia) Discharge Diagnosis: Hematoma Discharge Diagnosis: Cancer of colon Discharge Diagnosis: CAD (coronary artery disease) Discharge Diagnosis: COPD, mild Discharge Diagnosis: Abnormal blood sugar Discharge Diagnosis: Elevated cholesterol Discharge Disposition: 01-Home or Self Care Attending Physician: Pop Vizcaino MD Admitting Physician: Pop Vizcaino MD Vital Signs Most recent to 1 oldest [Reference Range]: Blood Pressure 140/90 mmHg [90-140/60-90 mmHg] (09/29/16 8:22 AM) Problem List Condition Effective Dates Status Health Status Informant Anemia(Confirmed) Active Cardenas's Active esophagus(Confirmed) Abnormal blood Active sugar(Confirmed) [...] day), # 90 tabs, 5 Refill(s), Pharmacy: [facility], 1 tabs Oral Bedtime (once a day) Start Date: 09/15/16 Status: Ordered bisoprolol 5 mg oral tablet 2.5 mg 0.5 tabs, Oral, Daily, # 45 tabs, 0 Refill(s), Pharmacy: [facility], 0.5 tabs Oral Daily Start Date: 08/24/16 Status: Ordered Cipro 500 mg oral tablet 500 mg 1 tabs, Oral, q12hr, X 5 days, # 10 tabs, 0 Refill(s), Pharmacy: [id number], 1 tabs Oral q12hr,x5 days Start Date: 09/29/16 Stop Date: 10/04/16 Status: Ordered ferrous sulfate 325 mg (65 mg elemental iron) oral tablet 325 mg 1 tabs, Oral, BID, # 180 tabs, 0 Refill(s), Pharmacy: [facility], 1 tabs Oral BID Start Date: 07/20/16 Status: Ordered nitroglycerin 0.4 mg sublingual tablet 0.4 mg 1 tabs, SubLingual, q5min, Angina/Chest Pain, # 100 tabs, 3 Refill(s), Pharmacy: [facility], 1 tabs SubLingual q5min,PRN:Angina/ Chest Pain Start Date: 09/15/16 Status: Ordered pantoprazole 40 mg oral delayed release tablet 40 mg 1 tabs, Oral, Daily, # 90 tabs, 5 Refill(s), Pharmacy: [facility], 1 tabs Oral Daily Start Date: 09/15/16 Status: Ordered Plavix 75 mg oral tablet 75 mg 1 tabs, Oral, Daily, # 90 tabs, 5 Refill(s), Pharmacy: [facility], 1 tabs Oral Daily Start Date: 09/15/16 Status: Ordered tamsulosin 0.4 mg oral capsule 0.4 mg 1 caps, Oral, Bedtime (once a day), # 90 caps, 1 Refill(s), Pharmacy: [facility], 1 caps Oral Bedtime (once a day) Start Date: 07/29/16 Status: Ordered Vitamin D with Minerals oral tablet 1 tabs, Oral, Daily, # 90 tabs, 0 Refill(s) Start Date: 04/23/14 Status: Ordered Results Hematology Most recent to 1 oldest [Reference Range]: WBC [4.8-10.8 6.8 10*3/uL 10*3/uL] (09/29/16 8:43 AM) RBC [4.60-6.20] 3.84 *LOW* (09/29/16 8:43 AM) Hgb [14.0-18.0 11.7 gm/dL gm/dL] *LOW* (09/29/16 8:43 AM) Hct [42.0-52.0 %] 35.6 % *LOW* (09/29/16 8:43 AM) MCV [82.0-99.0 fL] 92.7 fL (09/29/16 8:43 AM) MCH [27.0-32.0 pg] 30.5 pg (09/29/16 8:43 AM) MCHC [32.0-36.0 32.9 gm/dL gm/dL] (09/29/16 8:43 AM) RDW [11.5-14.5 %] 18.7 % *HI* (09/29/16 8:43 AM) Platelet [150-400 323 10*3/uL 10*3/uL] (09/29/16 8:43 AM) MPV [8.8-14.8 fL] 10.0 fL (09/29/16 8:43 AM) Immature 0.1 % Granulocytes (09/29/16 8:43 AM) [0.0-1.0 %] Neutrophils [51-75 74 % %] (09/29/16 8:43 AM) Lymphocytes [20-46 19 % %] *LOW* (09/29/16 8:43 AM) Monocytes [4-11 %] 5 % (09/29/16 8:43 AM) Eosinophils [0-4 %] 2 % (09/29/16 8:43 AM) Basophils [0-2 %] 0 % (09/29/16 8:43 AM) Neutro Absolute 5.04 [1.90-7.00] (09/29/16 8:43 AM) Lymph Absolute 1.29 [0.80-3.30] (09/29/16 8:43 AM) Faulk Absolute 0.34 [0.30-1.00] (09/29/16 8:43 AM) Eos Absolute 0.16 [0.00-0.50] (09/29/16 8:43 AM) Baso Absolute 0.01 [0.00-0.20] (09/29/16 8:43 AM) Chemistry Most recent to 1 oldest [Reference Range]: Sodium Lvl [135-144 142 mEq/L mEq/L] (09/29/16 8:43 AM) Potassium Lvl 3.9 mEq/L [3.5-5.2 mEq/L] (09/29/16 8:43 AM) Chloride [99-111 108 mEq/L mEq/L] (09/29/16 8:43 AM) CO2 [23-31 mEq/L] 25 mEq/L (09/29/16 8:43 AM) AGAP [3-20] 9 (09/29/16 8:43 AM) BUN [8-26 mg/dL] 14 mg/dL (09/29/16 8:43 AM) Glucose Lvl [70-99 107 mg/dL mg/dL] *HI* (09/29/16 8:43 AM) Creatinine Lvl 0.83 mg/dL [0.72-1.25 mg/dL] (09/29/16 8:43 AM) eGFR [>60 mL/min] >60 mL/min 1 (09/29/16 8:43 AM) Calcium Lvl 8.5 mg/dL [8.9-10.5 mg/dL] *LOW* (09/29/16 8:43 AM) 1Result Comment: Multiply eGFR results by 1.21 for race. Urinalysis Most recent to 1 oldest [Reference Range]: UA Color Yellow (09/29/16 8:54 AM) UA Appear Clear (09/29/16 8:54 AM) UA pH [5.0-8.0] 5.5 (09/29/16 8:54 AM) UA Leuk Est Negative [Negative] (09/29/16 8:54 AM) UA Nitrite Negative [Negative] (09/29/16 8:54 AM) UA Protein Negative [Negative] (09/29/16 8:54 AM) UA Glucose Negative [Negative] (09/29/16 8:54 AM) UA Ketones Negative [Negative] (09/29/16 8:54 AM) UA Urobilinogen 0.2 mg/dL [<1.0 mg/dL] (09/29/16 8:54 AM) UA Bili [Negative] Negative (09/29/16 8:54 AM) UA Blood [Negative] Negative (09/29/16 8:54 AM) UA Spec Grav 1.025 [1.003-1.030] (09/29/16 8:54 AM) Type Voided (09/29/16 8:54 AM) Immunizations Given and Recorded Vaccine Date Status [...] colonoscopy9 hernia repair x 210 left heel [id number] Repair-hernia Vasectomy 1auto-populated from documented surgical case [...] s. Plan repeat EGD in 3 years 31688 9in 2011 [id number] 11crushing injury- screws and plates in 2003 Social History Social History Type Response Smoking Status Former smoker; Type: Oral1 1DC 1996 Assessment and Plan Extracted from: Title: Ambulatory Patient Education Author: Pop Vizcaino MD Date: Allergy Asthma, Adult Asthma is a recurring condition [...] Smoke. Air pollutants such as dust, household casting machine operator automatic, hair sprays, aerosol sprays, paint fumes, strong [...] later. Symptoms include: Wheezing. Excessive nighttime or swatch maker coughing. Frequent or severe coughing with a [...] hardware store, a double-layered or microfilter vacuum flask cleaner bag, or a vacuum flask cleaner with a HEPA filter. Replace carpet [...] Released: 09/19/2006 Document Revised: 10/10/2015 Document Reviewed: [employer] Patient Education 2016 [employer] No follow up information was provided. Extracted from: Title: Office Visit Note Author: Pop Vizcaino MD Date: 09/29/16 Assessment/Plan Abnormal blood sugar This issue was reviewed, appears stable, and current therapy continued except as mentioned. Appropriate lab was reviewed from the most recent appropriate entry and lab was ordered if needed in the cpoe/nursing orders, and follow up recommended generally in 90 days and no later then six months. Lab stable. CAD (coronary artery disease) This issue was reviewed, appears stable, and current therapy continued except as mentioned. Appropriate lab was reviewed from the most recent appropriate entry and lab was ordered if needed in the cpoe/nursing orders, and follow up recommended generally in 90 days and no later then six months. Assessment/Plan 1.Angina pectoris Resolved. 2.CAD (coronary artery disease) S/p NILA to ostial LAD.Continue ASA 81 mg daily indefinitely. Continue Plavix 75 mg daily at least 12 months post PCI. Continue BB and statin. Refer for cardiac rehab at [place]. F/u with Dr. Mclaughlin 1 month. Check CBC, BMP today. 3.Status post insertion of drug-eluting stent into left anterior descending (LAD) artery 4.Hyperlipidemia Controlled. Continue Atorvastatin. 5.History of colon cancer 6.History of anemia [1] Cancer of colon The patient's issue is nearly or completely resolved. There is no further issues or testing desired by them at this time. CAP (community acquired pneumonia) The patient's issue is nearly or completely resolved. There is no further issues or testing desired by them at this time. CXR pending. IMPRESSION: COPD with interval resolution of the pulmonary infiltrates. [2] COPD, mild This issue was reviewed, appears [...] days and no later then six months. Fever Lab and CXR pending. Cipro 500mg po bid for five days. Ordered: Basic Metabolic Panel CBC w/ Differential Urinalysis with Culture if Indicated XR Chest 2 Views Hematoma Stable. Monitor. Sono if painful or not resolving.
--- OUTSIDE RECORDS SUMMARY | 2017-02-20 22:02 | XMS REPORT | Referral Summary ---
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 Discharge Diagnosis: Dysphagia Discharge Disposition: Home or Self Care Attending Physician: Myron Shine MD Admitting Physician: Myron Shine MD Referring Physician: Pop Vizcaino MD Vital Signs Most recent to 1 oldest [Reference Range]: Blood Pressure 124/74 mmHg [90-140/60-90 mmHg] (12/24/14 3:26 PM) Problem List Condition Effective Dates Status [...] days, # 90 caps, 3 Refill(s), Pharmacy: [facility] , 1 caps Oral Daily,x90 days Start Date: 10/09/14 Stop Date: 10/04/15 Status: Ordered simvastatin 40 mg oral tablet 1 tabs, Oral, Daily, X 90 days, # 90 tabs, 3 Refill(s), Pharmacy: [facility] , 1 tabs Oral Daily,x90 days Start Date: 10/09/14 Stop Date: 10/04/15 Status: Ordered tamsulosin 0.4 mg oral capsule 1 caps, Oral, Bedtime (once a day), X 90 days, # 90 caps, 3 Refill(s), Pharmacy : [facility], 1 caps Oral Bedtime (once a day),x90 days Start Date: 10/09/14 Stop Date: 10/04/15 Status: Ordered triamcinolone 0.1% topical cream 1 stacey, Topical, BID, Rash, # 30 g, 0 Refill(s), Pharmacy: [id number] Start Date: 04/24/14 Status: Ordered Vitamin D [...] s. Plan repeat EGD in 3 years 04254 5in 2010 02863 7crushing injury- screws and plates in 2003 Social History Social History Type Response Smoking Status Former smoker; Type: Oral1 1DC 1996 Assessment and Plan Extracted from: Title: Ambulatory Patient Education Author: Myron Shine MD Date: Allergy Dysphagia Swallowing problems (dysphagia ) occur when solids and liquids seem to stick in your throat on the way down to your stomach, or the food takes longer to get to the stomach. Other symptoms (problems) include regurgitating (burping) up food , noises coming from the throat, chest discomfort with swallowing, and a feeling of fullness in the throat when swallowing. When blockage in the throat is complete it may be associated with drooling. CAUSES There are many causes of swallowing difficulties and the following is generalized information regarding a number of reasons for this problem. Problems with swallowing may occur because of problems with the muscles. The food cannot be propelled in the usual manner into the stomach. There may be ulcers, scar tissue, or inflammation (soreness) in the esophagus (the food tube from the mouth to the stomach) which blocks food from passing normally into the stomach. Causes of inflammation include acid reflux from the stomach into the esophagus. Inflammation can also be caused by the herpes simplex virus , Jamia (yeast), radiation (as with treatment of cancer), or inflammation from medicines not taken with adequate fluids to wash them down into the stomach. There may be nerve problems so signals cannot be sent adequately telling the muscles of the esophagus to contract and move the food along. Achalasia is a rare disorder of the esophagus in which muscular contractions of the esophagus are uncoordinated. Globus hystericus is a relatively common problem in young females in which there is a sense of an obstruction or difficulty in swallowing, but in which no abnormalities can be found. This problem usually improves over time with reassurance and testing to rule out other causes. DIAGNOSIS A number of tests will help your caregiver know what is the cause of your swallowing problems. These tests may include a barium swallow in which X-rays are taken while you are drinking a liquid that outlines the lining of the esophagus on X-ray. If the stomach and small bowel are also studied in this manner it is called an upper gastrointestinal exam (UGI). Endoscopy may be done in which your caregiver examines your throat, esophagus, stomach, and small bowel with a small, flexible scope. Motility studies which measure the effectiveness and coordination of the muscular contractions of the esophagus may also be done. TREATMENT The treatment of swallowing problems are many, varying from medicines to surgical treatment. The treatment varies with the type of problem found. Your caregiver will discuss your results and treatment with you. If swallowing problems are severe the long-term problems which may occur include: malnutrition , pneumonia (from food going into the breathing tubes called trachea and bronchi ), and an increase in tumors (lumps) of the esophagus. SEEK IMMEDIATE MEDICAL CARE IF: Food or another object becomes lodged in your throat or esophagus and will not move. Document Released: 09/16/2001 Document Revised: 03/20/2013 Document Reviewed: [employer] Patient Information 2014 [employer]. No follow up information was provided.
--- OUTSIDE RECORDS SUMMARY | 2017-02-20 22:02 | XMS REPORT | Continuity of Care Document ---
Author Author [facility] Organization [facility] Address Unknown Phone Unavailable Allergies Active Description Code Type Severity Reaction Onset Reported/Identified Relationship to Patient Clinical Status Yes acetaminophen NKMA N/A N/A 01/31/2014 Yes HYDROcodone NKMA N/A N/A 01/31/2014 Medications Problems Procedures Results Test Result Range CBC With Platelet and Differential - 06/29/16 11:25 Absolute Basophils 0.01 10*3 0.00-0.20 Absolute Eosinophils 0.07 10*3 0.00-0.50 Absolute Lymphocytes 1.50 10*3 0.80-3.30 Absolute Monocytes 0.44 10*3 0.30-1.00 Absolute Neutrophils 5.11 10*3 1.90-7.00 Basophils 0 % 0-2 Eosinophils 1 % 0-4 HCT 34.9 % 42.0-52.0 HGB 10.6 g/dL 14.0-18.0 Immature Granulocytes 1.2 % 0.0-1.0 Lymphocytes 21 % 20-46 MCH 25.2 pg 27.0-32.0 MCHC 30.4 g/dL 32.0-36.0 MCV 82.9 fL 82.0-99.0 Monocytes 6 % 4-11 MPV 10.3 fL 8.8-14.8 Neutrophils 71 % 51-75 Platelet Count 313 K/uL 150-400 RBC 4.21 10*6/uL 4.60-6.20 RDW 17.2 % 11.5-14.5 WBC 7.2 K/uL 4.8-10.8 Comprehensive Metabolic Panel (CMP) - 06/29/16 11:25 Albumin 4.1 g/dL 3.4-4.8 Alkaline Phosphatase 145 U/L 40-150 ALT (SGPT) 16 U/L 0-55 Anion Gap 7 NA 3-20 AST (SGOT) 19 U/L 5-34 Bilirubin Total 0.4 mg/dL 0.2-1.2 BUN 21 mg/dL 8-26 Calcium 9.3 mg/dL 8.9-10.5 Chloride 103 mEq/L 99-111 CO2 29 mEq/L 23-31 Creatinine 1.09 mg/dL 0.72-1.25 Globulin 2.5 g/dL 1.8-4.0 Glucose 94 mg/dL 70-99 Potassium 4.8 mEq/L 3.5-5.2 Protein 6.6 g/dL 6.0-7.6 Sodium 139 mEq/L 135-144 eGFR - 06/29/16 11:25 eGFR >60 mL/min >60 Lipid Panel - 06/29/16 11:25 Cardiac Risk 2.7 0.0-5.7 Cholesterol 148 mg/dL 0-199 HDL Cholesterol 54 mg/dL 40-84 LDL Cholesterol 79 mg/dL 0-130 Triglycerides 75 mg/dL 0-149 VLDL Cholesterol 15 mg/dL 0-28 TSH with Reflex Free T4 - 06/29/16 11:25 TSH with Reflex Free T4 2.10 uIU/mL 0.35- 4.94 PSA - 06/29/16 11:25 PSA 0.9 ng/mL 0.0-6.5 Urinalysis with reflex microscopic - 06/29/16 11:28 Appearance Clear NA Bilirubin Negative NA Negative Blood Negative NA Negative Color Yellow NA Glucose, Urine Negative Negative Ketones Negative Negative Leukocyte Esterase Pos 1+ NA Negative Nitrites Negative NA Negative pH 6.5 NA 5.0-8.0 Protein Negative Negative Specific [place] 1.024 NA 1.003-1.030 UA Collection type Voided NA Urobilinogen 0.2 mg/dL <1.0 Urine Microscopic - 06/29/16 11:28 Epithelial Cells 0 /HPF Hyaline Casts 1 /LPF 0-3 RBC, Urine 0 /HPF 0-4 WBC, Urine 0 /HPF 0-4 CBC With Platelet and Differential - 08/24/16 10:55 Absolute Basophils 0.00 10*3 0.00-0.20 Absolute Eosinophils 0.08 10*3 0.00-0.50 Absolute Lymphocytes 1.44 10*3 0.80-3.30 Absolute Monocytes 0.35 10*3 0.30-1.00 Absolute Neutrophils 3.24 10*3 1.90-7.00 Basophils 0 % 0-2 Eosinophils 2 % 0-4 HCT 38.9 % 42.0-52.0 HGB 12.5 g/dL 14.0-18.0 Immature Granulocytes 0.4 % 0.0-1.0 Lymphocytes 28 % 20-46 MCH 28.0 pg 27.0-32.0 MCHC 32.1 g/dL 32.0-36.0 MCV 87.0 fL 82.0-99.0 Monocytes 7 % 4-11 MPV 10.2 fL 8.8-14.8 Neutrophils 63 % 51-75 Platelet Count 221 K/uL 150-400 RBC 4.47 10*6/uL 4.60-6.20 RDW 21.1 % 11.5-14.5 WBC 5.1 K/uL 4.8-10.8 Activated Clotting Time NPT - 09/14/16 09:31 Activated Clotting Time NPT 198 seconds 100-146 Activated Clotting Time NPT - 09/14/16 09:45 Activated Clotting Time NPT 204 seconds 100-146 Activated Clotting Time NPT - 09/14/16 09:56 Activated Clotting Time NPT 198 seconds 100-146 Activated Clotting Time NPT - 09/14/16 10:18 Activated Clotting Time NPT 266 seconds 100-146 Activated Clotting Time NPT - 09/14/16 10:51 Activated Clotting Time NPT 260 seconds 100-146 Activated Clotting Time NPT - 09/14/16 12:35 Activated Clotting Time NPT 0 seconds 100 -146 Activated Clotting Time NPT - 09/14/16 13:18 Activated Clotting Time NPT 178 seconds 100-146 CBC With Platelet and Differential - 09/29/16 08:43 Absolute Basophils 0.01 10*3/uL 0.00- 0.20 Absolute Eosinophils 0.16 10*3/uL 0.00- 0.50 Absolute Lymphocytes 1.29 10*3/uL 0.80- 3.30 Absolute Monocytes 0.34 10*3/uL 0.30- 1.00 Absolute Neutrophils 5.04 10*3/uL 1.90- 7.00 Basophils 0 % 0-2 Eosinophils 2 % 0-4 HCT 35.6 % 42.0-52.0 HGB 11.7 g/dL 14.0-18.0 Immature Granulocytes 0.1 % 0.0-1.0 Lymphocytes 19 % 20-46 MCH 30.5 pg 27.0-32.0 MCHC 32.9 g/dL 32.0-36.0 MCV 92.7 fL 82.0-99.0 Monocytes 5 % 4-11 MPV 10.0 fL 8.8-14.8 Neutrophils 74 % 51-75 Platelet Count 323 K/uL 150-400 RBC 3.84 10*6/uL 4.60-6.20 RDW 18.7 % 11.5-14.5 WBC 6.8 K/uL 4.8-10.8 Basic Metabolic Panel (BMP) - 09/29/16 08:43 Anion Gap 9 NA 3-20 BUN 14 mg/dL 8-26 Calcium 8.5 mg/dL 8.9-10.5 Chloride 108 mEq/L 99-111 CO2 25 mEq/L 23-31 Creatinine 0.83 mg/dL 0.72-1.25 Glucose 107 mg/dL 70-99 Potassium 3.9 mEq/L 3.5-5.2 Sodium 142 mEq/L 135-144 eGFR - 09/29/16 08:43 eGFR >60 mL/min >60 Encounters ACCT No. Visit Date/Time Discharge Status Pt. Type Provider Facility Loc./Unit Complaint [id number] 10/27/2016 10:21:00 2016 23:59:00 DIS Outpatient Freddie Mclaughlin [facility] New Card 1 MO RCK [id number] 10/13/2016 13:40:00 2016 23:59:00 DIS Outpatient Pop Vizcaino [facility] New FM 2 wk faviola [id number] 09/29/2016 08:16:00 2015 23:59:00 DIS Outpatient Pop Vizcaino [facility] New FM Stint put in 3 wk [place] [id number] 09/21/2016 15:40:00 2015 23:59:00 DIS Outpatient Kanjean pierre, [place] [facility] Mur Card 1 WK POST STENT [id number] 09/08/2016 12:16:00 2015 23:59:00 DIS Outpatient Kanjean pierre, [place] [facility] Mur Card HC consult myrna [id number] 09/03/2016 12:30:00 2015 23:59:00 DIS Outpatient Freddie Mclaughlin [facility] Mur Card TTM I20.8 R94.31 MYRNA 165CM 69KG [facility] [id number] 09/03/2016 10:56:00 2015 23:59:00 DIS Outpatient Freddie Mclaughlin [facility] Mur Card TTM I20.8 R94.31 MYRNA 165CM 69KG [facility] [id number] 08/24/2016 09:29:00 2015 23:59:00 DIS Outpatient Freddie Mclaughlin [facility] Mur Card NPV ANGINA LUINSTRA [id number] 08/24/2016 00:01:00 2015 23:59:00 DIS Outpatient Freddie Mclaughlin [facility] Mur Card R07.9 [id number] 07/29/2016 09:19:00 2015 23:59:00 DIS Outpatient Pop Vizcaino [facility] New FM 1 mo faviola [id number] 07/27/2016 15:47:00 2015 23:59:00 DIS Outpatient Myron Shine [facility] New Surg Difficulty swallowing and weight loss [id number] 07/13/2016 09:44:00 2015 23:59:00 DIS Outpatient Pop Vizcaino [facility] New FM 2 wk [place] [id number] 06/29/2016 10:49:00 2015 23:59:00 DIS Outpatient Pop Vizcaino [facility] New FM TCPA FEVER OFF AND ON [place] [id number] 05/21/2015 13:19:00 2014 23:59:00 DIS Outpatient Myron Shine [facility] New Surg Follow up for surgery [id number] 03/28/2015 09:27:00 2014 23:59:00 DIS Outpatient Myron Shine [facility] New Surg fu [id number] 10/25/2014 09:18:00 2014 23:59:00 DIS Outpatient Myron Shine [facility] New Surg EGD [id number] 10/09/2014 10:16:00 2014 23:59:00 DIS Outpatient Pop Vizcaino [facility] New FM f/u pneumonia [id number] 09/30/2014 13:14:00 2013 23:59:00 DIS Outpatient Pop Vizcaino [facility] New FM COUGH [id number] 09/24/2014 09:23:00 2013 23:59:00 DIS Outpatient Pop Vizcaino [facility] New FM cough [id number] 2016 06:09:00 Document Registration [id number] 03/14/2015 09:50:00 Document Registration [id number] 03/05/2015 11:00:00 Document Registration [id number] 02/26/2015 10:50:00 Document Registration [id number] 02/26/2015 09:09:00 Document Registration [id number] 02/20/2015 09:28:00 Document Registration [id number] 02/18/2015 08:38:00 Document Registration [id number] 02/17/2015 12:27:00 Document Registration [id number] 01/17/2015 10:09:00 Document Registration [id number] 01/15/2015 15:02:00 Document Registration [id number] 01/01/2015 14:11:00 Document Registration [id number] 12/27/2014 16:49:00 Document Registration [id number] 12/27/2014 08:31:00 Document Registration [id number] 12/24/2014 14:49:00 Document Registration
--- OUTSIDE RECORDS SUMMARY | 2017-02-20 22:02 | XMS REPORT | Referral Summary ---
Author Author [facility] Organization [facility] Address Unknown Phone Unavailable Care Team Providers Care Solder Deposit Operator Name Role Phone Ashley Vizcaino Primary Care Physician [phone] Encounter VC Date(s): 02/26/15 - 02/26/15 [facility] [address] [place] [address] JOVANNY Agustin [phone]- [place] Discharge Diagnosis: Coffee ground emesis Discharge Diagnosis: Post-operative state Discharge Disposition: 01-Home or Self Care Attending Physician: Lorenza Interiano APRN Admitting Physician: Lorenaz Interiano APRN Referring Physician: Pop Vizcaino MD Vital Signs Most recent to 1 oldest [Reference Range]: Temperature Tympanic 36.4 degC [36.6-38.1 degC] *LOW* (02/26/15 9:24 AM) Blood Pressure 88/60 mmHg [90-140/60-90 mmHg] *LOW* (02/26/15 9:24 AM) Problem List Condition Effective Dates Status [...] oral suspension 1 g 10 mL, Oral, QIDACHGil, # 1,200 mL, 0 Refill(s), Pharmacy: [id number], 10 mL Oral QIDACHS,x30 days Start Date: [...] QID, # 120 tabs, 0 Refill(s), Pharmacy: [id number], 1 tabs Oral QID Start Date: 03/05/15 Status: Ordered Remeron 15 mg oral tablet See Instructions, 1 TABS ORAL BEDTIME (ONCE A DAY), # 30 tabs, 2 Refill(s), eRx : [id number], 1 TABS ORAL BEDTIME (ONCE A DAY) Start Date: 05/07/15 Status: Ordered simvastatin 40 mg oral tablet 1 tabs, Oral, Daily, X 90 days, # 90 tabs, 3 Refill(s), Pharmacy: [facility] , 1 tabs Oral Daily,x90 days Start Date: 10/09/14 Stop Date: 10/04/15 Status: Ordered tamsulosin 0.4 mg oral capsule 1 caps, Oral, Bedtime (once a day), X 90 days, # 90 caps, 3 Refill(s), Pharmacy : [facility], 1 caps Oral Bedtime (once a day),x90 days Start Date: 10/09/14 Stop Date: 10/04/15 Status: Ordered triamcinolone 0.1% topical cream 1 stacey, Topical, BID, Rash, # 30 g, 0 Refill(s), Pharmacy: [id number] Start Date: 04/24/14 Status: Ordered Viagra 100 mg oral tablet 1 tabs, Oral, Daily, as needed for erectile dysfunction, # 12 tabs, 3 Refill(s) , Pharmacy: [facility] [id number], 1 tabs Oral Daily,PRN:as needed for erectile dysfunction Start Date: 01/01/15 Status: Ordered Vitamin D with Minerals oral tablet 1 tabs, Oral, Daily, # 90 tabs, 0 Refill(s) Start Date: 04/23/14 Status: Ordered Results Hematology Most recent to 1 oldest [Reference Range]: WBC [5.0-10.0 8.2 10*3/uL 10*3/uL] (02/26/15 9:18 AM) RBC [3.70-5.20 2.85 10*6/uL 10*6/uL] *LOW* (02/26/15 9:18 AM) Hgb [12.0-16.0 8.3 gm/dL gm/dL] *LOW* (02/26/15 9:18 AM) Hct [40.0-54.0 %] 26.7 % *LOW* (02/26/15 9:18 AM) MCV [80.0-96.0 fL] 93.7 fL (02/26/15 9:18 AM) MCH [26.0-34.0 pg] 29.1 pg (02/26/15 9:18 AM) MCHC [32.0-36.0 31.1 gm/dL gm/dL] *LOW* (02/26/15 9:18 AM) RDW [0.0-14.5 %] 14.6 % *HI* (02/26/15 9:18 AM) Platelet [150-400 742 10*3/uL 10*3/uL] *HI* (02/26/15 9:18 AM) MPV [8.8-14.8 fL] 8.9 fL (02/26/15 9:18 AM) Neutrophils [50-70 69 % %] (02/26/15 9:18 AM) Band Man [0-6 %] 3 % (02/26/15 9:18 AM) Lymphocytes [20-40 16 % %] *LOW* (02/26/15 9:18 AM) Abn Lymph Man [-1-0 7 % %] *HI* (02/26/15 9:18 AM) Monocytes [4-8 %] 4 % (02/26/15 9:18 AM) Eosinophils [0-6 %] 1 % (02/26/15 9:18 AM) Basophils [0-2 %] 0 % (02/26/15 9:18 AM) Neutro Absolute 5.90 10*3 [2.50-7.00 10*3] (02/26/15 9:18 AM) Lymph Absolute 1.89 10*3 [1.00-4.00 10*3] (02/26/15 9:18 AM) Assumption Absolute 0.33 10*3 [0.20-0.80 10*3] (02/26/15 9:18 AM) Eos Absolute 0.08 10*3 [0.00-0.60 10*3] (02/26/15 9:18 AM) Baso Absolute 0.00 10*3 [0.00-0.30 10*3] (02/26/15 9:18 AM) Differential Manual *ABN* (02/26/15 9:18 AM) Immunizations Vaccine Date Refusal Reason influenza [...] s. Plan repeat EGD in 3 years [address] 7in 2010 71348 9crushing injury- screws and plates in 2003 Social History Social History Type Response Smoking Status Former smoker; Type: Oral1 1DC 1996 Assessment and Plan Extracted from: Title: Ambulatory Patient Education Author: Lorenza Interiano CHILDREN'S LITERATURE PROFESSOR Date : 02/26/15 Family Medicine Aspiration Precautions Aspiration is the inhaling of a liquid or object into the lungs. Things that can be inhaled into the lungs include: Food. Any type of liquid, such as drinks or saliva. Stomach contents, such as vomit or stomach acid. When these things go into the lungs, damage can occur. Serious complications can then result, such as: A lung infection (pneumonia ). A collection of pus in the lungs (lung abscess ). CAUSES A decreased level of awareness (consciousness ) due to: Traumatic brain injury or head injury. Stroke. Neurological disease. Seizures. Decreased or absent gag reflex (inability to cough). Medical conditions that affect swallowing. Conditions that affect the food pipe (esophagus ) such as a narrowing of the esophagus (esophageal stricture ). Gastroesophageal reflux (GERD). This is also known as acid reflux. Any type of surgery where you are put under general anesthesia or have sedation. Drinking large amounts of alcohol. Taking medication that causes drowsiness, confusion, or weakness. Aging. Dental problems. Having a feeding tube. SYMPTOMS When aspiration occurs, different signs and symptoms can occur, such as: Coughing (if a person has a cough or gag reflex) after swallowing food or liquids. Difficulty breathing. This can include things like: Breathing rapidly. Breathing very slowly. Hearing "gurgling" lung sounds when a person breaths. Coughing up phlegm (sputum ) that is: Yellow, arango, or green in color. Has pieces of food in it. Bad smelling. A change in voice (hoarseness ). A change in skin color. The skin may turn a "bluish" type color because of a lack of oxygen (cyanosis ). Fever. DIAGNOSIS A chest X-ray may be performed. This takes a picture of your lungs. It can show changes in the lungs if aspiration has occurred. A bronchoscopy may be performed. This is a surgical procedure in which a thin, flexible tube with a camera at the end is inserted into the nose or mouth. The tube is advanced to the lungs so your caregiver can view the lungs and obtain a culture, tissue sample, or remove an aspirated object. A swallowing evaluation study may be performed to evaluate: A person's risk of aspiration. How difficult it is for a person to swallow. What types of foods are safe for a person to eat. PREVENTION If you are a caregiver to someone who may aspirate, follow the directions below. If you are caring for someone who can eat and drink through their mouth: Have them sit in an upright position when eating food or drinking fluids, such as: Sitting up in a chair. If sitting in a chair is not possible, position the person in bed so they are upright. Remind the person to eat slowly and chew well. Do not distract the person. This is especially important for people with thinking or memory (cognitive ) problems. Check the person's mouth for leftover food after eating. Keep the person sitting upright for 30 to 45 minutes after eating. Do not serve food or drink for at least 2 hours before bedtime. If you are caring for someone with a feeding tube and he or she cannot eat or drink through their mouth: Keep the person in an upright position as much as possible. Do not lay the person flat if they are getting continuous feedings. Turn the feeding pump off if you need to lay the person flat for any reason. Check feeding tube residuals as directed by your caregiver. If a large amount of tube feedings are pulled back (aspirated ) from the feeding tube, call your caregiver right away. General guidelines to prevent aspiration include: Feed small amounts of food. Do not force feed. Use as little water as possible when brushing the person's teeth or cleaning his or her mouth. Provide oral care before and after meals. Never put food or fluids in the mouth of a person who is not fully alert. Crush pills and put them in soft food such as pudding or ice cream. Some pills should not be crushed. Check with your caregiver before crushing any medication. SEEK IMMEDIATE MEDICAL CARE IF: The person has trouble breathing or starts to breathe rapidly. The person is breathing very slowly or stops breathing. The person coughs a lot after eating or drinking. The person has a chronic cough. The person coughs up thick, yellow, or arango sputum. The person has a fever or persistent symptoms for more than 72 hours. The person has a fever and their symptoms suddenly get worse. Document Released: 10/22/2011 Document Revised: 12/11/2012 Document Reviewed: [employer] Patient Information 2014 [employer]. No follow up information was provided. Extracted from: Title: Office Visit Note Author: Laisha Lorenzaestrella Guerrero APRN Date: 02/26/15 Assessment/Plan Coffee ground emesis Ordered: Postoperative Est 83086 Post-operative state Ordered: Postoperative Est [address] Muñoz by phone and he agreed that we should go ahead and start Carafate 1 g by mouth 4 times a day. Continue the omeprazole. We' ll also continue with Ensure but perhaps rather than drinking hole can atonce I would like you to "Graze" meaning taking perhaps a third to half a cup at a time either through the G-tube or drinking it. If this is too much habits just a couple tablespoons at a time. Continue to take food such as fish and other items you like on an as tolerated basis but only small portions. Take the Remeron as prescribed by Dr. Vizcaino. Probably should not take the Remeron and Carafate at the same time. Separate this by about 2 hours. Be sure not to eat or drink anything for 3-4 hours prior to sleep other than the Carafate and Remeron. Follow-up in our office in one week. Addendum His CBC did a revealed a WBC of 8.2 and hemoglobin 8.3. This is compared to February 20 with by WBC of 12.1 hemoglobin 8.1. Lorenza Interiano APRN on February 26, 2015 14:00:48 CDT Addendum He was also told to avoid ibuprofen her. Perhaps try some Tylenol PM at bedtime. He by may also take a [place] but seems to be reluctant to do so stating that that seems to cause Laisha increased nausea. Lorenza Guerrero APRN on February 26, 2015 14:15:05 CDT
--- OUTSIDE RECORDS SUMMARY | 2017-02-20 22:03 | XMS REPORT | Referral Summary ---
Author Author [facility] Organization [facility] Address Unknown Phone Unavailable Care Team Providers Care Front Load Trash Truck Driver Name Role Phone Ashley Vizcaino Primary Care Physician [phone] Encounter VC Date(s): 07/27/16 - 07/27/16 [facility] [address] [place] [address] JOVANNY Agustin [phone]- Discharge Diagnosis: Esophageal dysphagia Discharge Disposition: 01-Home or Self Care Attending Physician: Myron Muñoz MD Admitting Physician: Myron Muñoz MD Referring Physician: Pop Vizcaino MD Vital Signs Most recent to 1 oldest [Reference Range]: Temperature Tympanic 36.7 degC [36.6-38.1 degC] (07/27/16 3:58 PM) Peripheral Pulse 81 bpm Rate [60-100 bpm] (07/27/16 3:58 PM) Blood Pressure 118/72 mmHg [90-140/60-90 mmHg] (07/27/16 3:58 PM) SpO2 95 % (07/27/16 3:58 PM) Problem List Condition Effective Dates Status [...] Daily, # 30 tabs, 0 Refill(s), Pharmacy: [facility] [address], 1 tabs Oral Daily Start Date: 06/29/16 Status: Ordered Cialis 5 mg oral tablet 1 tabs, Oral, Daily, as needed for erectile dysfunction, # 20 tabs, 0 Refill(s) , 1 tabs Oral Daily,PRN:as needed for erectile dysfunction Start Date: 10/25/14 Status: Ordered ferrous sulfate 325 mg (65 mg elemental iron) oral tablet 325 mg 1 tabs, Oral, BID, # 180 tabs, 0 Refill(s), Pharmacy: [facility], 1 tabs Oral BID Start Date: 07/20/16 Status: Ordered simvastatin 40 mg oral tablet See Instructions, TAKE 1 TABLET EVERY DAY, # 30 tabs, 0 Refill(s), Pharmacy: [facility], TAKE 1 TABLET EVERY DAY Start Date: 06/28/16 Status: Ordered tamsulosin 0.4 mg oral capsule See Instructions, TAKE 1 CAPSULE ONE TIME DAILY AT BEDTIME (NEED APPOINTMENT BEFORE ADDITIONAL REFILLS WILL BE SENT), # 30 caps, 0 Refill(s), Pharmacy: [facility], TAKE 1 CAPSULE ONE TIME DAILY AT BEDTIME (NEED APPOINTMENT BEFORE AD... Start Date: 06/28/16 Status: Ordered triamcinolone 0.1% topical cream 1 stacey, Topical, BID, Rash, # 30 g, 0 Refill(s), Pharmacy: [facility] [id number] Start Date: 04/24/14 Status: Ordered Viagra 100 mg oral tablet 1 tabs, Oral, Daily, as needed for erectile dysfunction, # 12 tabs, 3 Refill(s) , Pharmacy: [facility] [address], 1 tabs Oral Daily,PRN:as needed for erectile [...] s. Plan repeat EGD in 3 years [address] 7in 2010 [address]5736 9crushing injury- screws and plates in 2003 Social History Social History Type Response Smoking Status Former smoker; Type: Oral1 1DC 1996 Assessment and Plan Extracted from: Title: Ambulatory Patient Education Author: Myron Muñoz MD Date: Allergy Dysphagia Swallowing problems (dysphagia) occur when solids and liquids seem to stick in your throat on the way down to your stomach, or the food takes longer to get to the stomach. Other symptoms include regurgitating food, noises coming from the throat, chest discomfort with swallowing, and a feeling of fullness or the feeling of something being stuck in your throat when swallowing. When blockage in your throat is complete, it may be associated with drooling. CAUSES Problems with swallowing may occur because of problems with the muscles. The food cannot be propelled in the usual manner into your stomach. You may have ulcers, scar tissue, or inflammation in the tube down which food travels from your mouth to your stomach (esophagus), which blocks food from passing normally into the stomach. Causes of inflammation include: Acid reflux from your stomach into your esophagus. Infection. Radiation treatment for cancer. Medicines taken without enough fluids to wash them down into your stomach. You may have nerve problems that prevent signals from being sent to the muscles of your esophagus to contract and move your food down to your stomach. Globus pharyngeus is a relatively common problem in which there is a sense of an obstruction or difficulty in swallowing, without any physical abnormalities of the swallowing passages being found. This problem usually improves over time with reassurance and testing to rule out other causes. DIAGNOSIS Dysphagia can be diagnosed and its cause can be determined by tests in which you swallow a white substance that helps illuminate the inside of your throat ( contrast medium) while X-rays are taken. Sometimes a flexible telescope that is inserted down your throat (endoscopy) to look at your esophagus and stomach is used. TREATMENT If the dysphagia is caused by acid reflux or infection, medicines may be used. If the dysphagia is caused by problems with your swallowing muscles, swallowing therapy may be used to help you strengthen your swallowing muscles. If the dysphagia is caused by a blockage or mass, procedures to remove the blockage may be done. HOME CARE INSTRUCTIONS Try to eat soft food that is easier to swallow and check your weight on a daily basis to be sure that it is not decreasing. Be sure to drink liquids when sitting upright (not lying down). SEEK MEDICAL CARE IF: You are losing weight because you are unable to swallow. You are coughing when you drink liquids (aspiration). You are coughing up partially digested food. SEEK IMMEDIATE MEDICAL CARE IF: You are unable to swallow your own saliva(. You are having shortness of breath or a fever, or both.( You have a hoarse voice along with difficulty swallowing. MAKE SURE YOU: Understand these instructions. Will watch your condition. Will get help right away if you are not doing well or get worse. This information is not intended to replace advice given to you by your health care provider. Make sure you discuss any questions you have with your health care provider. Document Released: 09/16/2001 Document Revised: 10/10/2015 Document Reviewed: [employer] Patient Education 2016 [employer] No follow up information was provided.
--- OUTSIDE RECORDS SUMMARY | 2017-02-20 22:03 | XMS REPORT | Referral Summary ---
Author Author [facility] Organization [facility] Address Unknown Phone Unavailable Care Team Providers Care Police Lieutenant Name Role Phone Ashley Vizcaino Primary Care Physician [phone] Encounter VC Date(s): 02/20/15 - 02/20/15 [facility] [address] [place] [address] [place] Agust[place] [address]- [place] Discharge Diagnosis: Skin pustule Discharge Diagnosis: Post-operative state Discharge Diagnosis: Abdominal pain, LLQ Discharge Diagnosis: Abdominal pain LLQ Discharge Disposition: -Home or Self Care Attending Physician: Lorenza Interiano APRN Admitting Physician: Lorenza Interiano APRN Referring Physician: Pop Vizcaino MD Vital Signs Most recent to 1 oldest [Reference Range]: Temperature Tympanic 36.9 degC [36.6-38.1 degC] (02/20/15 10:34 AM) Peripheral Pulse 96 bpm Rate [60-100 bpm] (02/20/15 10:34 AM) Respiratory Rate 20 br/min [14-20 br/min] (02/20/15 10:34 AM) Blood Pressure 124/70 mmHg [90-140/60-90 mmHg] (02/20/15 10:34 AM) Problem List Condition Effective Dates Status [...] QIDACHS, # 1,200 mL, 0 Refill(s), Pharmacy: [facility] [id number], 10 mL Oral QIDACHS,x30 days Start Date: [...] QID, # 120 tabs, 0 Refill(s), Pharmacy: [facility] 67406, 1 tabs Oral QID Start Date: 03/05/15 Status: Ordered Remeron 15 mg oral tablet See Instructions, 1 TABS ORAL BEDTIME (ONCE A DAY), # 30 tabs, 2 Refill(s), eRx : [facility] 00522, 1 TABS ORAL BEDTIME (ONCE A DAY) Start Date: 05/07/15 Status: Ordered simvastatin 40 mg oral tablet 1 tabs, Oral, Daily, X 90 days, # 90 tabs, 3 Refill(s), Pharmacy: [facility] , 1 tabs Oral Daily,x90 days Start Date: 10/09/14 Stop Date: 10/04/15 Status: Ordered tamsulosin 0.4 mg oral capsule 1 caps, Oral, Bedtime (once a day), X 90 days, # 90 caps, 3 Refill(s), Pharmacy : [facility], 1 caps Oral Bedtime (once a day),x90 days Start Date: 10/09/14 Stop Date: 10/04/15 Status: Ordered triamcinolone 0.1% topical cream 1 stacey, Topical, BID, Rash, # 30 g, 0 Refill(s), Pharmacy: [facility]704 Start Date: 04/24/14 Status: Ordered Viagra 100 mg oral tablet 1 tabs, Oral, Daily, as needed for erectile dysfunction, # 12 tabs, 3 Refill(s) , Pharmacy: [facility] [id number], 1 tabs Oral Daily,PRN:as needed for erectile [...] s. Plan repeat EGD in 3 years 46876 7in 2010 91460 9crushing injury- screws and plates in 2003 Social History Social History Type Response Smoking Status Former smoker; Type: Oral1 1DC 1996 Assessment and Plan Extracted from: Title: Ambulatory Patient Education Author: Laisha Lorenza Cesar [employer] Date : 02/20/15 Ophthalmology Pain Relief Preoperatively and Postoperatively Being a good patient does not mean being a silent one.If you have questions, problems, or concerns about the pain you may feel after surgery, let your caregiver know.Patients have the right to assessment and management of pain. The treatment of pain after surgery is important to speed up recovery and return to normal activities. Severe pain after surgery, and the fear or anxiety associated with that pain, may cause extreme discomfort that: Prevents sleep. Decreases the ability to breathe deeply and cough. This can cause pneumonia or other upper airway infections. Causes your heart to beat faster and your blood pressure to be higher. Increases the risk for constipation and bloating. Decreases the ability of wounds to heal. May result in depression, increased anxiety, and feelings of helplessness. Relief of pain before surgery is also important because it will lessen the pain after surgery. Patients who receive both pain relief before and after surgery experience greater pain relief than those who only receive pain relief after surgery. Let your caregiver know if you are having uncontrolled pain.This is very important.Pain after surgery is more difficult to manage if it is permitted to become severe, so prompt and adequate treatment of acute pain is necessary. PAIN CONTROL METHODS Your caregivers follow policies and procedures about the management of patient pain.These guidelines should be explained to you before surgery.Plans for pain control after surgery must be mutually decided upon and instituted with your full understanding and agreement.Do not be afraid to ask questions regarding the care you are receiving.There are many different ways your caregivers will attempt to control your pain, including the following methods. As needed pain control You may be given pain medicine either through your intravenous (IV) tube, or as a pill or liquid you can swallow. You will need to let your caregiver know when you are having pain. Then, your caregiver will give you the pain medicine ordered for you. Your pain medicine may make you constipated. If constipation occurs, drink more liquids if you can. Your caregiver may have you take a mild laxative. IV patient-controlled analgesia pump (BLANCHING MACHINE OPERATOR pump) You can get your pain medicine through the IV tube which goes into your vein. You are able to control the amount of pain medicine that you get. The pain medicine flows in through an IV tube and is controlled by a pump. This pump gives you a set amount of pain medicine when you push the button hooked up to it. Nobody should push this button but you or someone specifically assigned by you to do so. It is set up to keep you from accidentally giving yourself too much pain medicine. You will be able to start using your pain pump in the recovery room after your surgery. This method can be helpful for most types of surgery. If you are still having too much pain, tell your caregiver. Also, tell your caregiver if you are feeling too sleepy or nauseous. Continuous epidural pain control A thin, soft tube (catheter ) is put into your back. Pain medicine flows through the catheter to lessen pain in the part of your body where the surgery is done. Continuous epidural pain control may work best for you if you are having surgery on your chest, abdomen, hip area, or legs. The epidural catheter is usually put into your back just before surgery. The catheter is left in until you can eat and take medicine by mouth. In most cases, this may take 2 to 3 days. Giving pain medicine through the epidural catheter may help you heal faster because: Your bowel gets back to normal faster. You can get back to eating sooner. You can be up and walking sooner. Medicine that numbs the area (local anesthetic ) You may receive an injection of pain medicine near where the pain is ( local infiltration ). You may receive an injection of pain medicine near the nerve that controls the sensation to a specific part of the body (peripheral nerve block ). Medicine may be put in the spine to block pain (spinal block ). Opioids Moderate to moderately severe acute pain after surgery may respond to opioids.Opioids are narcotic pain medicine. Opioids are often combined with non-narcotic medicines to improve pain relief, diminish the risk of side effects , and reduce the chance of addiction. If you follow your caregiver's directions about taking opioids and you do not have a history of substance abuse, your risk of becoming addicted is exceptionally small.Opioids are given for short periods of time in careful doses to prevent addiction. Other methods of pain control include: Steroids. Physical therapy. Heat and cold therapy. Compression, such as wrapping an elastic bandage around the area of pain. Massage. These various ways of controlling pain may be used together. Combining different methods of pain control is called multimodal analgesia. Using this approach has many benefits, including being able to eat, move around, and leave the hospital sooner. Document Released: 12/10/2003 Document Revised: 12/11/2012 Document Reviewed: ExitCare Patient Information 2014 [employer]. No follow up information was provided. Extracted from: Title: Progress/SOAP Note Author: Lorenza Interiano [employer] Date: 02/20/15 Assessment/Plan Abdominal pain LLQ The description of the left lower quadrant abdominal pain , physical exam, KUB make me comfortable that there is nothing serious going on within the abdomen. Your white count is also coming down not going up. It is possible that the intermittent sharp pain that you are feeling is gas that is trying to roll around. Post-operative state I am pleased at that you are eating better, no nausea or vomiting. Continue to eat a healthy diet, the fish and vegetables are excellent. Continue the Reglan as scheduled. Regarding the coughing at night continue using the wedge even though you slight down on it occasionally. Be sure to take your omeprazole as directed both morning and evening. I would like you to return to my office on February 26 with a CBC before the appointment. If you have any problems or concerns over the long holiday weekend do not hesitate to go to the emergency room. Dr. Mo is security installation sales technician and is well familiar with your case. A copy of today's lab and KUB and upright are sent with you so they would be available if you should happen to need Dr. Mo's assistance. Ordered: Skin pustule With this pustule I'd like to put you on Augmentin 875 for 3 days. Also like you to cleanse this area daily with hydrogen peroxide and "squeezing out" any pus that might be in there. Ordered: Orders:
--- OUTSIDE RECORDS SUMMARY | 2017-02-20 22:03 | XMS REPORT | Referral Summary ---
Author Organization Unknown Address Unknown Phone Unavailable Care Team Providers Care Veterans' Counselor Name Role Phone Ashley Vizcaino Primary Care Physician [phone] Encounter VC Date(s): 10/25/14 - 10/25/14 [facility], [address] [place] [address] Discharge Diagnosis: History of colon cancer Discharge Diagnosis: GERD (gastroesophageal reflux disease) Discharge Diagnosis: Cardenas's esophagus Discharge Diagnosis: Dysphagia Discharge Disposition: Home or Self Care Attending Physician: Myron Shine MD Admitting Physician: Myron Shine MD Vital Signs Most recent to 1 oldest [Reference Range]: Temperature Tympanic 36 degC [36.6-38.1 degC] *LOW* (10/25/14 9:22 AM) Blood Pressure 120/78 mmHg [90-140/60-90 mmHg] (10/25/14 9:22 AM) Problem List Condition Effective Dates Status Health Status Informant Cardenas's Active esophagus(Confirmed) Hypertension Active NOS(Confirmed) GERD without Active esophagitis(Confirme d) History of BPH Active w/prostatism & overactive bladder(Confirmed) History of nocturia Active and irregular prostate gland(Confirmed) ED (erectile Active dysfunction)(Confirm ed) Cancer of Active colon(Confirmed) Cancer of Active colon(Confirmed) Elevated Active cholesterol(Confirme d) Skin tag(Confirmed) Active Allergies, Adverse Reactions, Alerts Substance Reaction Severity Status acetaminophen Active HYDROcodone Active Medications atenolol 25 mg oral tablet 1 tabs, Oral, Daily, # 90 tabs, 3 Refill(s), Pharmacy: [facility], 1 tabs Oral Daily,x90 days Start Date: 10/09/14 Stop Date: 10/04/15 Status: Ordered Cialis 5 mg oral tablet 1 tabs, Oral, Daily, as needed for erectile dysfunction, # 20 tabs, 0 Refill(s) , 1 tabs Oral Daily,PRN:as needed for erectile dysfunction Start Date: 10/25/14 Status: Ordered omeprazole 40 mg oral delayed release capsule 1 caps, Oral, Daily, X 90 days, # 90 caps, 3 Refill(s), Pharmacy: [facility] , 1 caps Oral Daily,x90 days [...] Rash, # 30 g, 0 Refill(s), Pharmacy: [id number] Start Date: 04/24/14 Status: Ordered Vitamin D [...] Procedures Procedure Date Related Diagnosis Body Site Colonoscopy 03/25/08 Esophagogastroduodenoscopy1 03/25/08 Colectomy 2004 Repair-hernia 1EGD with mil nonspecific chronic inflammation. Personal history for Cardenas' s. Plan repeat EGD in 3 years Social History Social History Type Response Smoking Status Never smoker Assessment and Plan Extracted from: Title: Ambulatory Patient Education Author: Myron Shine MD Date: Family Medicine Cardenas's Esophagus Cardenas's esophagus occurs when the lining of the esophagus is damaged. The esophagus is the tube that carries food from the mouth to the stomach. With Cardenas's esophagus, the lining of the esophagus gets replaced by material that is similar to the lining in the intestines. This process is called intestinal metaplasia. A small number of people with Cardenas's esophagus develop esophageal cancer. CAUSES The exact cause of Cardenas's esophagus is unknown. SYMPTOMS Most people with Cardenas's esophagus do not have symptoms. However, many patients also have gastroesophageal reflux disease (GERD). GERD can cause heartburn, trouble swallowing, and a dry cough. DIAGNOSIS Cardenas's esophagus is diagnosed by an exam called upper gastrointestinal endoscopy. A thin, flexible tube (endoscope ) is passed down the esophagus. The endoscope has a light and camera on the end. Your caregiver uses the endoscope to view the inside of the esophagus. A tissue sample may also be taken and examined under a microscope (biopsy ). If cancer cells are found during the biopsy, this condition is called dysplasia. TREATMENT If you have no dysplasia or low-grade dysplasia, your caregiver may recommend no treatment or only taking medicines to treat GERD. Sometimes, taking acid- blocking drugs to treat GERD helps improve the tissue affected by Cardenas's esophagus. Your caregiver may also recommend periodic esophageal exams. If you have high-grade dysplasia, treatment may include removing the damaged parts of the esophagus. This can be done by heating, freezing, or surgically removing the tissue. In some cases, surgery may be done to remove most of the esophagus. The stomach is then attached to the remaining portion of the esophagus. HOME CARE INSTRUCTIONS Take acid-blocking drugs for GERD if recommended by your caregiver. Keep all follow-up appointments as directed by your caregiver. You may need periodic esophageal exams. SEEK IMMEDIATE MEDICAL CARE IF: You have chest pain. You have trouble swallowing. You vomit blood or material that looks like coffee grounds. Your stools are bright red or dark. Document Released: 12/09/2004 Document Revised: 03/20/2013 Document Reviewed: ExitCare Patient Information 2014 [employer]. No follow up information was provided. Extracted from: Title: Office Visit Note Author: Myron Shine MD Date: 10/25/14 Assessment/Plan Cardenas's esophagus Ordered: Office Visit Level 4 New 01289 Dysphagia Ordered: Office Visit Level 4 New 81424 GERD (gastroesophageal reflux disease) Ordered: Office Visit Level 4 New 73719 History of colon cancer Ordered: Office Visit Level 4 New 92213 Plan: Esophagogastroduodenoscopy with probable dilatation . I did review the patient's chart including prior office note performed by his PCP from September 24, 2014. Reviewed lab work from September 30, 2014 consisting of CBC CMP. Lab work essentially within normal limits. Reviewed colonoscopy and EGD report performed by Dr. Fishman from November 24, 2010. Patient was found to have some mild diverticulum otherwise colonoscopy normal. Patient was found to have evidence for reflux esophagitis with Cardenas 's esophagus upon upper endoscopy. I informed the patient that given his history for Cardenas's and the fact that he has been experiencing increasing dysphagia I would recommend that we proceed with esophagogastroduodenoscopy and probable dilatation. Risk of endoscopy was discussed with the patient. Risks include but are not inclusive of bleeding and/or perforation requiring surgery. Patient understood and was scheduled.
--- OUTSIDE RECORDS SUMMARY | 2017-02-20 22:03 | XMS REPORT | Referral Summary ---
Author Author [facility] Organization [facility] Address Unknown Phone Unavailable Care Team Providers Care Break Out Worker Name Role Phone Ashley Vizcaino Primary Care Physician [phone] Encounter VC Date(s): 03/28/15 - 03/28/15 [facility] [address] [place] [address] [place] Agust[place] [address]- Discharge Diagnosis: Post-operative state Discharge Disposition: 01-Home or Self Care Attending Physician: Myron Shine MD Admitting Physician: Myron Shine MD Referring Physician: Pop Vizcaino MD Vital Signs Most recent to 1 oldest [Reference Range]: Temperature Tympanic 36.5 degC [36.6-38.1 degC] *LOW* (03/28/15 9:46 AM) Problem List Condition Effective Dates Status [...] QIDACHS, # 1,200 mL, 0 Refill(s), Pharmacy: [facility] 10519, 10 mL Oral QIDACHS,x30 days Start Date: [...] QID, # 120 tabs, 0 Refill(s), Pharmacy: [facility] 76356, 1 tabs Oral QID Start Date: 03/05/15 Status: Ordered Remeron 15 mg oral tablet See Instructions, 1 TABS ORAL BEDTIME (ONCE A DAY), # 30 tabs, 2 Refill(s), eRx : [facility] [id number], 1 TABS ORAL BEDTIME (ONCE A DAY) Start Date: 05/07/15 Status: Ordered triamcinolone 0.1% topical cream 1 stacey, Topical, BID, Rash, # 30 g, 0 Refill(s), Pharmacy: [facility] 06137 Start Date: 04/24/14 Status: Ordered Viagra 100 mg oral tablet 1 tabs, Oral, Daily, as needed for erectile dysfunction, # 12 tabs, 3 Refill(s) , Pharmacy: [facility] 17570, 1 tabs Oral Daily,PRN:as needed for erectile [...] 23-polyvalent vaccine 04/29/00 tetanus-diphth toxoids (Td) adult/adol 2/15/11 tetanus-diphth toxoids (Td) adult/adol 04/29/00 zoster vaccine [...] s. Plan repeat EGD in 3 years 97283 7in 2010 46824 9crushing injury- screws and plates in 2003 Social History Social History Type Response Smoking Status Former smoker; Type: Oral1 1DC 1996 Assessment and Plan Extracted from: Title: Office Visit Note Author: Myron Shine MD Date: 03/29/15 Assessment/Plan Post-operative state Ordered: Postoperative Est 60058 Plan: Patient's feeding jejunostomy and gastrostomy tube were removed today. Dressings were applied. Patient was informed that these "tube sites" should heal on their own behalf over the next 2448 hours. There were any concerns patient was to contact me. Otherwise I would like see him back in about 3-4 weeks to document that he has continued to improve. Patient should contact the office sooner if any problems should arise.
--- OUTSIDE RECORDS SUMMARY | 2017-02-20 22:03 | XMS REPORT | Referral Summary ---
Author Author [facility] Organization [facility] Address Unknown Phone Unavailable Care Team Providers Care Plug Grower Name Role Phone Ashley Vizcaino Primary Care Physician [phone] Encounter Date(s): 09/08/16 - 09/08/16 [facility] [address] [place], [place] [address] Discharge Diagnosis: Abnormal nuclear stress test Discharge Diagnosis: Angina pectoris Discharge Diagnosis: Anemia Discharge Diagnosis: History of colon cancer Discharge Diagnosis: CAD (coronary artery disease) Discharge Diagnosis: Hyperlipidemia Discharge Disposition: 01-Home or Self Care Attending Physician: Martina Wright MD Admitting Physician: Martina Wright MD Referring Physician: Freddie Mclaughlin MD Vital Signs Most recent to 1 oldest [Reference Range]: Peripheral Pulse 56 bpm Rate [60-100 bpm] *LOW* (09/08/16 12:38 PM) Blood Pressure 132/84 mmHg [90-140/60-90 mmHg] (09/08/16 12:38 PM) Problem List Condition Effective Dates Status [...] Daily, # 45 tabs, 0 Refill(s), Pharmacy: [facility], 0.5 tabs Oral Daily Start Date: 08/24/16 Status: Ordered ferrous sulfate 325 mg (65 mg elemental iron) oral tablet 325 mg 1 tabs, Oral, BID, # 180 tabs, 0 Refill(s), Pharmacy: [facility], 1 tabs Oral BID Start Date: 07/20/16 Status: Ordered omeprazole 20 mg oral delayed release tablet 20 mg 1 tabs, Oral, Daily, 0 Refill(s) Start Date: 09/08/16 Status: Ordered simvastatin 40 mg oral tablet 40 mg 1 tabs, Oral, Bedtime (once a day), # 90 tabs, 1 Refill(s), Pharmacy: [facility], 1 tabs Oral Bedtime (once a day) Start Date: 07/29/16 Status: Ordered tamsulosin 0.4 mg oral capsule 0.4 mg 1 caps, Oral, Bedtime (once a day), # 90 caps, 1 Refill(s), Pharmacy: [facility], 1 caps Oral Bedtime (once a day) Start Date: 07/29/16 Status: Ordered Vitamin D with Minerals oral tablet 1 tabs, Oral, Daily, # 90 tabs, 0 Refill(s) Start Date: 04/23/14 Status: Ordered Results Hematology Most recent to 1 oldest [Reference Range]: WBC [4.8-10.8 5.1 10*3/uL 10*3/uL] (09/08/16 1:52 PM) RBC [4.60-6.20] 4.45 *LOW* (09/08/16 1:52 PM) Hgb [14.0-18.0 12.9 gm/dL gm/dL] *LOW* (09/08/16 1:52 PM) Hct [42.0-52.0 %] 39.6 % *LOW* (09/08/16 1:52 PM) MCV [82.0-99.0 fL] 89.0 fL (09/08/16 1:52 PM) MCH [27.0-32.0 pg] 29.0 pg (09/08/16 1:52 PM) MCHC [32.0-36.0 32.6 gm/dL gm/dL] (09/08/16 1:52 PM) RDW [11.5-14.5 %] 20.3 % *HI* (09/08/16 1:52 PM) Platelet [150-400 183 10*3/uL 10*3/uL] (09/08/16 1:52 PM) MPV [8.8-14.8 fL] 10.7 fL (09/08/16 1:52 PM) Immature 0.0 % Granulocytes (09/08/16 1:52 PM) [0.0-1.0 %] Neutrophils [51-75 54 % %] (09/08/16 1:52 PM) Lymphocytes [20-46 36 % %] (09/08/16 1:52 PM) Monocytes [4-11 %] 8 % (09/08/16 1:52 PM) Eosinophils [0-4 %] 2 % (09/08/16 1:52 PM) Basophils [0-2 %] 0 % (09/08/16 1:52 PM) Neutro Absolute 2.75 10*3 [1.90-7.00 10*3] (09/08/16 1:52 PM) Lymph Absolute 1.84 10*3 [0.80-3.30 10*3] (09/08/16 1:52 PM) [place] Absolute 0.38 10*3 [0.30-1.00 10*3] (09/08/16 1:52 PM) Eos Absolute 0.09 10*3 [0.00-0.50 10*3] (09/08/16 1:52 PM) Baso Absolute 0.01 10*3 [0.00-0.20 10*3] (09/08/16 1:52 PM) Coagulation Most recent to 1 oldest [Reference Range]: INR [0.9-1.2] 1.1 (09/08/16 1:52 PM) Chemistry Most recent to 1 oldest [Reference Range]: Sodium Lvl [135-144 142 mEq/L mEq/L] (09/08/16 1:52 PM) Potassium Lvl 4.5 mEq/L [3.5-5.2 mEq/L] (09/08/16 1:52 PM) Chloride [99-111 107 mEq/L mEq/L] (09/08/16 1:52 PM) CO2 [23-31 mEq/L] 26 mEq/L (09/08/16 1:52 PM) AGAP [3-20] 9 (09/08/16 1:52 PM) BUN [8-26 mg/dL] 19 mg/dL (09/08/16 1:52 PM) Glucose Lvl [70-99 78 mg/dL mg/dL] (09/08/16 1:52 PM) Creatinine Lvl 0.87 mg/dL [0.72-1.25 mg/dL] (09/08/16 1:52 PM) eGFR [>60 mL/min] >60 mL/min 1 (09/08/16 1:52 PM) Calcium Lvl 8.9 mg/dL [8.9-10.5 mg/dL] (09/08/16 1:52 PM) 1Result Comment: Multiply eGFR results by 1.21 for race. Immunizations Vaccine Date Refusal Reason influenza virus [...] s. Plan repeat EGD in 3 years 82269 7in 2011 75868 9crushing injury- screws and plates in 2003 Social History Social History Type Response Smoking Status Former smoker; Type: Oral1 1DC 1996 Assessment and Plan Extracted from: Title: Ambulatory Patient Education Author: Martina Wright MD Date : 09/08/16 Procedures Coronary Angiogram A coronary angiogram, also [...] including vitamins, herbs, eye drops, creams, and [id number] medicines. Previous problems you or members of [...] Released: 03/25/2004 Document Revised: 10/10/2015 Document Reviewed: [employer]vier Interactive Patient Education 2016 [employer] No follow up information was provided.
--- OUTSIDE RECORDS SUMMARY | 2017-02-20 22:03 | XMS REPORT | Continuity of Care Document ---
Author Author [facility] Organization [facility] Address Unknown Phone Unavailable Support Name Relationship Address Phone CRYSTAL FRASER MD Caregiver [address] [place] [address] [place] [address] [phone] JONO OLMOS FACS, MD Caregiver [address] [place] [address] [place] [address] [phone] BUDDY RIDLEY Next Of Kin [address] [place] [address] Insurance Providers Payer Name Policy Number Subscriber Name Relationship Medicare [id number] Zack Ridley 18 Self [facility] [id number] Zack Ridley 18 Self Advance Directives Directive Response Recorded Date/Time Ordered Resuscitation Status Full Code 01/08/15 9:46am Resuscitation Documents on File No 01/08/15 8:30am Chief Complaint and Reason for Visit Chief Complaint REP PARA ESOPH HERNIA/LAP JACKIE/POSS OPEN [id number] Reason for Visit Barretts esophagus GERD (gastroesophageal reflux disease) BPH (benign prostatic hyperplasia) History of colon cancer Paraesophageal hernia Problems Medical Problems Problem Onset Date Status Barretts esophagus Unknown Active GERD (gastroesophageal reflux disease) Unknown Active BPH (benign prostatic hyperplasia) Unknown Active History of colon cancer Unknown Active Paraesophageal hernia Unknown Resolved Medications Medication Dose Route Sig Days/Qty Instructions [...] PO DAILY PRN PRN ORDERS 11/21/14 Active Aspirin 1 Tab PO DAILY 01/08/15 Active Oxycodone HCl/Acetaminophen 1-2 Tab PO EVERY 5 HOURS PRN PAIN 30 Qty Active Docusate Sodium 1 Cap PO TWICE A DAY For CONSTIPATION 14 Days 01/14/15 Active Social History Social History Problem Response Recorded Date/Time Chewing Tobacco Status No 01/09/2015 9:50am Hx Substance Use No 01/09/2015 9:50am Hx Alcohol Use Y WINE OCCASIONALLY 01/09/2015 9:50am Has the pt used tobacco in the last 12 months No 01/09/2015 9:50am Query Response Start Date Stop Date Smoking Status Never smoker Hospital Discharge Instructions Instructions: Care Instructions: Reason for Hospitalization: deanna sevilla I was in the hospital because (patient own words): (PER ) HES HAVING HIS HERNIA FIXED THAT IS CURLED UP AROUND BEHIND HIS Discharge Diet: mechanical soft, no hard meat, breads, rice Discharge Activity: Do not drive, operate machinery for 24 hours after surgery or while taking pain medication. No lifting more than 25 pounds for 4 weeks. Follow Up Appointments: Follow up with Dr. Olmos on January 28 at 3:15 pm Patient Instructions: May Shower No Bathing or swimming. Wound/Incision Care: Leave incision open to air. Notify Physician If: 1. Call your surgeon if you are having problems relating to your surgery at [phone]. 2. Problems such as: Temp above 101.5 degrees You develop redness, excessive swelling of the incision, increasing pain or excessive foul smelling drainage. 3. If the office is closed, call [facility] at [phone] and have your Surgeon paged. Condition at time of discharge: Good During office hours, call [phone]. After hours, please call [facility] at [phone] and have the freezing machine operator page Dr. Robertson or the covering surgeon. *In the event of an emergency, seek medical care at the nearest emergency room.* Condition at time of discharge: Good Plan of Care Discharge Date 01/14/15 10:25am Disposition 01 DISCHARGED HOME, SELF-CARE Instructions/Education Provided DI for Fundoplication Fundoplication -- Laparoscopic Surgery Prescriptions See Medications Section Functional Status Query Response Date Recorded Physical Hygiene Self January 14, 2015 10:03am Disabilities None January 14, 2015 10:03am Devices Used Glasses January 14, 2015 10:03am Dressing Self January 14, 2015 10:03am Ambulation Self January 14, 2015 10:03am Diet Self January 14, 2015 10:03am Mental Status Alert January 14, 2015 10:03am Disabilities None January 14, 2015 10:03am Devices Used Glasses January 14, 2015 10:03am Physical Hygiene Self January 14, 2015 10:03am Dressing Self January 14, 2015 10:03am Ambulation Self January 14, 2015 10:03am Diet Self January 14, 2015 10:03am Allergies, Adverse Reactions, Alerts Allergen Type Severity Reaction Status Last Updated Hydrocodone Allergy Unknown Active 11/20/14 Immunizations Name Given Type Hx Influenza Vaccination Y FALL 2013 Historical Hx Pneumococcal Vaccination Y WITHIN THE PAST 5 YEARS Historical Hx Influenza Vaccination Y FALL 2013 Historical Vital Signs Acute Vital Signs Vital Response Date/Time Temperature (Fahrenheit) 98.9 deg F (96.8 - 99.1) Temperature (Calculated Celsius) 37.48849 degrees C (36.0 - 37.3) Pulse Rate (adult) 97 bpm (60 - 100) Respiratory Rate 16 breaths/min (10 - 20) O2 Sat by Pulse Oximetry 94 % (90 - 100) Oxygen Delivery Method Room Air Blood Pressure 137/94 mm Hg Blood Pressure Source Automatic Cuff Height 5 ft 6 in Weight 167 lb Body Mass Index 27.0 kg/m^2 Results Test Source Date Result Interp. Ref. Range Comments Calcium Level January 10, 2015 4:52am 8.0 MG/DL L 8.4-10.2 Calculated Osmolality January 10, 2015 4:52am 269 MOSM/KG N 261-280 Glucose Level January 10, 2015 4:52am 99 MG/DL N 75-110 Glomerular Filtration Rate Calc January 10, 2015 4:52am 66 - BUN/Creatinine Ratio January 10, 2015 4:52am 14 RATIO N 6-26 Creatinine January 10, 2015 4:52am 1.1 MG/DL N 0.8-1.5 Blood Urea Nitrogen January 10, 2015 4:52am 15.0 MG/DL N 9-20 Anion Gap January 10, 2015 4:52am 9 MEQ/L N 5-15 Carbon Dioxide Level January 10, 2015 4:52am 28 MEQ/L N 22-30 Chloride Level January 10, 2015 4:52am 102 MEQ/L N 98-107 Potassium Level January 10, 2015 4:52am 4.5 MEQ/L N 3.6-5 Sodium Level January 10, 2015 4:52am 139 MEQ/L N 134-144 Turbidity January 10, 2015 4:52am < 20 0-20 Chemistry Specimen Hemolysis January 10, 2015 4:52am < 15 0-25 0-25: No Hemolysis.26-70: Slight Hemolysis - can falsely elevate K and Urine Protein. 71-285: Moderate Hemolysis - can falsely elevate K, Troponin I, CA 19-9, PTH, CSF GLucose, and Urine Protein, and can falsely decrease Phenytoin. 286-999: Gross Hemolysis - can falsely elevate K, Troponin I, CA 19-9, PTH, CSF Glucose, and Urine Protine, and can falsely decrease Phenytoin. Recommend specimen recollection. Icterus Index January 10, 2015 4:52am < 2 0-7 Immature Granulocyte # (Auto) January 10, 2015 4:52am 0.01 T/MM3 N 0.00- 0.03 Basophils # (Auto) January 10, 2015 4:52am 0.0 T/MM3 N 0-0.2 Eosinophils # (Auto) January 10, 2015 4:52am 0.0 T/MM3 N 0-0.5 Monocytes # (Auto) January 10, 2015 4:52am 0.5 T/MM3 N 0-0.8 Lymphocytes # (Auto) January 10, 2015 4:52am 1.2 T/MM3 N 1-4.8 Neutrophils # (Auto) January 10, 2015 4:52am 6.6 T/MM3 N 1.8-7.7 Immature Granulocyte % (Auto) January 10, 2015 4:52am 0.1 % N 0.0-0.5 Basophils (%) (Auto) January 10, 2015 4:52am 0.0 % N 0-2 Eosinophils (%) (Auto) January 10, 2015 4:52am 0.5 % N 0-4 Monocytes (%) (Auto) January 10, 2015 4:52am 5.8 % N 0-9.0 Lymphocytes (%) (Auto) January 10, 2015 4:52am 14.6 % L 23-45 Neutrophils (%) (Auto) January 10, 2015 4:52am 79.0 % H 33-66 Mean Platelet Volume January 10, 2015 4:52am 9.8 UM3 N 9.4-12.4 Platelet Count January 10, 2015 4:52am 156 T/MM3 N 130-400 RDW Standard Deviation January 10, 2015 4:52am 44.0 FL N 36.9-50.2 Mean Corpuscular Hemoglobin Concent January 10, 2015 4:52am 33.3 GM/DL N 31-37 Mean Corpuscular Hemoglobin January 10, 2015 4:52am 32.7 UUG N 26-34 Mean Corpuscular Volume January 10, 2015 4:52am 98.4 UM3 N 80-100 Hematocrit January 10, 2015 4:52am 43.0 % N 41-53 Hemoglobin January 10, 2015 4:52am 14.3 GM/DL N 13.5-17.5 Red Blood Count January 10, 2015 4:52am 4.37 M/MM3 L 4.50-5.90 White Blood Count January 10, 2015 4:52am 8.4 T/MM3 N 4.5-11.0 Name: ZACK RIDLEY Unit #: [id number] : 1945 Sex: M Loc / Svc: [facility] DOS: 01/09/15 Signed Report #: [id number] DIAGNOSTIC IMAGING REPORT TYPE OF EXAM: ESOPHOGRAM Dictated By: NEVILLE RODRIGUEZ MD Indication: ITS.REASON: r/o leak post paraesophageal hernia repair with Jackie ESOPHOGRAM: Comparison: None available Technique: A single contrast examination of the esophagus was performed. Findings: The swallowing mechanism is intact. Contrast passed through the gastroesophageal junction into the stomach. There was some delayed contrast passage through the Jackie fundoplication, likely accentuated by recent postsurgical state. No contrast extravasation seen. No intrinsic or intrinsic mass. Impression: Expected postsurgical appearance of the esophagus and gastroesophageal junction status post Jackie fundoplication, with slightly delayed contrast passage, likely accentuated by recent postsurgical state, with no extravasation seen. . Procedures Procedure Status Date Provider(s) EGD BIOPSY SINGLE/MULTIPLE completed 11/21/14 JONO OLMOS MD, FACS, CWS CONTRST X-RAY UPPR GI TRACT completed 11/21/14 TISSUE EXAM BY PATHOLOGIST completed 11/21/14"INJECTION, FENTANYL CITRATE, 0.1 MG" completed 11/21/14"RINGERS LACTATE INFUSION, UP TO 1000 CC" completed 11/21/14"RINGERS LACTATE INFUSION, UP TO 1000 CC" completed 11/21/14 Laparoscopic Jackie fundoplication completed 01/09/15 JONO OLMOS MD, FACS, CWS Encounters Encounter Location Date/Time Discharged Inpatient [facility] 01/09/15 6:00pm Recent Diagnosis Barretts esophagus GERD (gastroesophageal reflux disease) BPH (benign prostatic hyperplasia) History of colon cancer Paraesophageal hernia
--- OUTSIDE RECORDS SUMMARY | 2017-02-20 22:03 | XMS REPORT | Referral Summary ---
Author Organization Unknown Address Unknown Phone Unavailable Care Team Providers Care Job Compositor Name Role Phone Ashley Vizcaino Primary Care Physician [phone] Encounter VC Date(s): 01/17/15 - 01/17/15 Via CHARLIE Lee, Vinod, [address] [place] [id number] Discharge Diagnosis: Nausea & vomiting Discharge Diagnosis: Post-operative state Discharge Disposition: Home or Self Care Attending Physician: Myron Muñoz MD Admitting Physician: Myron Muñoz MD Referring Physician: Pop Vizcaino MD Vital Signs Most recent to 1 oldest [Reference Range]: Temperature Oral 36.6 degC [35.8-37.3 degC] (01/17/15 10:22 AM) Peripheral Pulse 102 bpm Rate [60-100 bpm] *HI* (01/17/15 10:22 AM) Respiratory Rate 16 br/min [14-20 br/min] (01/17/15 10:22 AM) Blood Pressure 120/64 mmHg [90-140/60-90 mmHg] (01/17/15 10:22 AM) Most recent to 1 oldest [Reference Range]: SpO2 97 % (01/17/15 10:22 AM) Problem List Condition Effective Dates Status [...] days, # 90 caps, 3 Refill(s), Pharmacy: [facility] , 1 caps Oral Daily,x90 days Start Date: 10/09/14 Stop Date: 10/04/15 Status: Ordered Reglan 10 mg oral tablet See Instructions, 1 tabs Oral FOR NAUSEA AND VOMITING NEEDED, # 30 tabs, 2 Refill(s), Pharmacy: [facility] [id number], 1 tabs Oral FOR NAUSEA AND VOMITING NEEDED Special Instructions: 1 tabs Oral FOR NAUSEA AND VOMITING NEEDED Start Date: 01/15/15 Stop Date: 02/05/15 Status: Ordered simvastatin 40 mg oral tablet 1 tabs, Oral, Daily, X 90 days, # 90 tabs, 3 Refill(s), Pharmacy: [facility] , 1 tabs Oral Daily,x90 days Start Date: 10/09/14 Stop Date: 10/04/15 Status: Ordered tamsulosin 0.4 mg oral capsule 1 caps, Oral, Bedtime (once a day), X 90 days, # 90 caps, 3 Refill(s), Pharmacy : [facility], 1 caps Oral Bedtime (once a day),x90 days Start Date: 10/09/14 Stop Date: 10/04/15 Status: Ordered triamcinolone 0.1% topical cream 1 stacey, Topical, BID, Rash, # 30 g, 0 Refill(s), Pharmacy: [facility] [id number] Start Date: 04/24/14 Status: Ordered Viagra 100 mg oral tablet 1 tabs, Oral, Daily, as needed for erectile dysfunction, # 12 tabs, 3 Refill(s) , Pharmacy: [facility] [id number], 1 tabs Oral Daily,PRN:as needed for erectile [...] Procedures Procedure Date Related Diagnosis Body Site Laparoscopic Jackie fundoplication using 01/09/15 abdominal approach1 Motility Esophageal2 12/12/14 Esophagogastroduodenoscopy and biopsy3 11/21/14 Colonoscopy 03/25/08 Esophagogastroduodenoscopy4 03/25/08 Colectomy 2004 appendectomy5 colonoscopy6 hernia repair x 27 left heel surgery8 Repair-hernia 1Large paraesophageal hernia repair with mesh and Jackie 2auto-populated from documented surgical case 3Positive for Cardenas's, 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 EGD and upper GI with contrast indicates nearly complete intrathoracic stomach with small amount of rotation along the long axis of the stomach. Return to clinic to talk about Jackie 4EGD with mil nonspecific chronic inflammation. Personal history for Cardenas' s. Plan repeat EGD in 3 years [id number] 6in 2010 82289 8crushing injury- screws and plates in 2003 Social History Social History Type Response Smoking Status Former smoker; Type: Oral1 1DC 1996 Assessment and Plan Extracted from: Title: Office Visit Note Author: Lorenza Interiano GROUNDMAN Date: 01/17/15 Assessment/Plan Nausea & vomiting Ordered: Postoperative Est 93259 Post-operative state Ordered: Postoperative Est 17234 Above findings are reported to Dr. Muñoz. Admission to [facility] is recommended. Patient is wondering "but continue do for me?" Discussed with the patient and his that we are in the "investigation phase " currently. Once we get a little more information from labs and x-rays we will be better able to put forth a "game plan." Patient admitted to [facility] for hydration, pain and nausea control, chest x-ray with PA and lateral, KUB upright, esophagram, CBC, CMP, and C. difficile.
--- OUTSIDE RECORDS SUMMARY | 2017-02-20 22:03 | XMS REPORT | Referral Summary ---
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 Discharge Disposition: Home or Self Care Attending Physician: Lorenza Interiano APRN Admitting Physician: Lorenza Interiano APRN Vital Signs Most recent to 1 oldest [Reference Range]: Temperature Tympanic 35.9 degC [36.6-38.1 degC] *LOW* (12/03/14 10:55 AM) Problem List Condition Effective Dates Status [...] Severity Status acetaminophen Active HYDROcodone Active Medications Cialis 5 mg oral tablet 1 tabs, [...] Rash, # 30 g, 0 Refill(s), Pharmacy: [facility] [id number] Start Date: 04/24/14 Status: Ordered Vitamin D [...] Procedure Date Related Diagnosis Body Site Esophagogastroduodenoscopy and biopsy1 11/21/14 Colonoscopy 03/25/08 Esophagogastroduodenoscopy2 03/25/08 Colectomy 2004 Repair-hernia 1Positive for Cardenas's, 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 EGD and upper GI with contrast indicates nearly complete intrathoracic stomach with small amount of rotation along the long axis of the stomach. Return to clinic to talk about Jackie 2EGD with mil nonspecific chronic inflammation. Personal history for Cardenas' s. Plan repeat EGD in 3 years Social History Social History Type Response Smoking Status Former smoker; Type: Oral1 1DC 1996 Assessment and Plan Extracted from: Title: Ambulatory Patient Education Author: Lorenza Interiano MANAGER HOSPITALITY Date : 12/03/14 Family Medicine Cardenas's Esophagus Cardenas's esophagus occurs [...] 03/20/2013 Document Reviewed: [employer] Patient Information 2014 [employer]. No follow up information was provided. Extracted from: Title: Office Visit Note Author: Lorenza Interiano APRN Date: 12/03/14 Assessment/Plan Cardenas's esophagus We will want you to continue your omeprazole 40 mg twice a day. We'll likely schedule repeat EGD in about [address], [address] Dr[address] Muñoz will go over this more detail with you tomorrow. Ordered: Office Visit No Charge Paraesophageal hernia As described to you post EGD and upper GI/barium swallow you do have a large paraesophageal hernia. Surgical intervention together with risks and benefits will be discussed by Dr. Muñoz at your visit tomorrow. Ordered: Office Visit No Charge
--- OUTSIDE RECORDS SUMMARY | 2017-02-20 22:03 | XMS REPORT | Referral Summary ---
Author Author Via [facility]LIE [facility], Family [facility] Organization Via [facility]LIE [facility] Address Unknown Phone Unavailable Care Team Providers Care Wire Drawing Die Maker Name Role Phone Ashley Vizcaino Primary Care Physician [phone] Encounter VC Date(s): 06/29/16 - 06/29/16 Via CHARLIE Lee [facility] [address] [place] [address] Discharge Diagnosis: Hypertension NOS Discharge Diagnosis: Cancer of colon Discharge Diagnosis: GERD without esophagitis Discharge Diagnosis: Depression Discharge Diagnosis: Cardenas's esophagus Discharge Diagnosis: Elevated cholesterol Discharge Diagnosis: ED (erectile dysfunction) Discharge Diagnosis: Fever Discharge Disposition: 01-Home or Self Care Attending Physician: Pop Vizcaino MD Admitting Physician: Pop Vizcaino MD Vital Signs Most recent to 1 oldest [Reference Range]: Blood Pressure 120/80 mmHg [90-140/60-90 mmHg] (06/29/16 10:59 AM) Problem List Condition Effective Dates Status Health Status Informant Cardenas's Active esophagus(Confirmed) Hypertension Active NOS(Confirmed) GERD without Active esophagitis(Confirme d) History of BPH Active w/prostatism & overactive bladder(Confirmed) History of nocturia Active and irregular prostate gland(Confirmed) ED (erectile Active dysfunction)(Confirm ed) Insomnia(Confirmed) Active Cancer of Active colon(Confirmed) Cancer of Active colon(Confirmed) Depression(Confirmed Active ) Elevated Active cholesterol(Confirme d) Skin tag(Confirmed) Active Tobacco Active patient user(Confirmed) Allergies, Adverse Reactions, Alerts Substance Reaction Severity Status acetaminophen Active HYDROcodone Active Medications Aspirin Low Dose 81 mg, Oral, Daily, 0 Refill(s) Start Date: 12/12/14 Status: Ordered CeleXA 10 mg oral tablet 10 mg 1 tabs, Oral, Daily, # 30 tabs, 0 Refill(s), Pharmacy: [facility] [address], 1 tabs Oral Daily Start Date: 06/29/16 Status: Ordered Cialis 5 mg oral tablet 1 tabs, Oral, Daily, as needed for erectile dysfunction, # 20 tabs, 0 Refill(s) , 1 tabs Oral Daily,PRN:as needed for erectile dysfunction Start Date: 10/25/14 Status: Ordered doxycycline hyclate 100 mg oral tablet 100 mg 1 tabs, Oral, BID, X 10 days, # 20 tabs, 0 Refill(s), Pharmacy: [facility] [address], 1 tabs Oral BID,x10 days Start Date: 06/29/16 Stop Date: 07/09/16 Status: Ordered omeprazole 40 mg oral delayed release capsule 40 mg 1 caps, Oral, BID, Note dose increase., X 90 days, # 180 caps, 3 Refill(s) , 1 caps Oral BID,x90 days,Instr:Note dose increase. Start Date: 07/08/15 Stop Date: 07/02/16 Status: Ordered simvastatin 40 mg oral tablet See Instructions, TAKE 1 TABLET EVERY DAY, # 30 tabs, 0 Refill(s), Pharmacy: [facility], TAKE 1 TABLET EVERY DAY Start Date: 06/28/16 Status: Ordered tamsulosin 0.4 mg oral capsule See Instructions, TAKE 1 CAPSULE ONE TIME DAILY AT BEDTIME (NEED APPOINTMENT BEFORE ADDITIONAL REFILLS WILL BE SENT), # 30 caps, 0 Refill(s), Pharmacy: [facility], TAKE 1 CAPSULE ONE TIME DAILY AT BEDTIME (NEED APPOINTMENT BEFORE AD... Start Date: 06/28/16 Status: Ordered triamcinolone 0.1% topical cream 1 stacey, Topical, BID, Rash, # 30 g, 0 Refill(s), Pharmacy: [facility] [id number] Start Date: 04/24/14 Status: Ordered Viagra 100 mg oral tablet 1 tabs, Oral, Daily, as needed for erectile dysfunction, # 12 tabs, 3 Refill(s) , Pharmacy: [facility] [address], 1 tabs Oral Daily,PRN:as needed for erectile dysfunction Start Date: 01/01/15 Status: Ordered Vitamin D with Minerals oral tablet 1 tabs, Oral, Daily, # 90 tabs, 0 Refill(s) Start Date: 7/22/14 Status: Ordered Results Hematology Most recent to 1 oldest [Reference Range]: WBC [4.8-10.8 7.2 10*3/uL 10*3/uL] (06/29/16 11:25 AM) RBC [4.60-6.20] 4.21 *LOW* (06/29/16 11:25 AM) Hgb [14.0-18.0 10.6 gm/dL gm/dL] *LOW* (06/29/16 11:25 AM) Hct [42.0-52.0 %] 34.9 % *LOW* (06/29/16 11:25 AM) MCV [82.0-99.0 fL] 82.9 fL (06/29/16 11:25 AM) MCH [27.0-32.0 pg] 25.2 pg *LOW* (06/29/16 11:25 AM) MCHC [32.0-36.0 30.4 gm/dL gm/dL] *LOW* (06/29/16 11:25 AM) RDW [11.5-14.5 %] 17.2 % *HI* (06/29/16 11:25 AM) Platelet [150-400 313 10*3/uL 10*3/uL] (06/29/16 11:25 AM) MPV [8.8-14.8 fL] 10.3 fL (06/29/16 11:25 AM) Immature 1.2 % Granulocytes *HI* [0.0-1.0 %] (06/29/16 11:25 AM) Neutrophils [51-75 71 % %] (06/29/16 11:25 AM) Lymphocytes [20-46 21 % %] (06/29/16 11:25 AM) Monocytes [4-11 %] 6 % (06/29/16 11:25 AM) Eosinophils [0-4 %] 1 % (06/29/16 11:25 AM) Basophils [0-2 %] 0 % (06/29/16 11:25 AM) Neutro Absolute 5.11 10*3 [1.90-7.00 10*3] (06/29/16 11:25 AM) Lymph Absolute 1.50 10*3 [0.80-3.30 10*3] (06/29/16 11:25 AM) Stanly Absolute 0.44 10*3 [0.30-1.00 10*3] (06/29/16 11:25 AM) Eos Absolute 0.07 10*3 [0.00-0.50 10*3] (06/29/16 11:25 AM) Baso Absolute 0.01 10*3 [0.00-0.20 10*3] (06/29/16 11:25 AM) Chemistry Most recent to 1 oldest [Reference Range]: Sodium Lvl [135-144 139 mEq/L mEq/L] (06/29/16 11:25 AM) Potassium Lvl 4.8 mEq/L [3.5-5.2 mEq/L] (06/29/16 11:25 AM) Chloride [99-111 103 mEq/L mEq/L] (06/29/16 11:25 AM) CO2 [23-31 mEq/L] 29 mEq/L (06/29/16 11:25 AM) AGAP [3-20] 7 (06/29/16 AM) BUN [8-26 mg/dL] 21 mg/dL (06/29/16 11:25 AM) Glucose Lvl [70-99 94 mg/dL mg/dL] (06/29/16 11:25 AM) Creatinine Lvl 1.09 mg/dL [0.72-1.25 mg/dL] (06/29/16 11:25 AM) eGFR [>60 mL/min] >60 mL/min 1 (06/29/16 AM) Calcium Lvl 9.3 mg/dL [8.9-10.5 mg/dL] (06/29/16 11:25 AM) Albumin Lvl [3.4-4.8 4.1 gm/dL gm/dL] (06/29/16 11:25 AM) Total Protein 6.6 gm/dL [6.0-7.6 gm/dL] (06/29/16 11:25 AM) Globulin [1.8-4.0 2.5 gm/dL gm/dL] (06/29/16 11:25 AM) ALT [0-55 U/L] 16 U/L (06/29/16 11:25 AM) AST [5-34 U/L] 19 U/L (06/29/16 11:25 AM) Alk Phos [40-150 145 U/L U/L] (06/29/16 11:25 AM) Bili Total [0.2-1.2 0.4 mg/dL mg/dL] (06/29/16 11:25 AM) PSA (wihout Reflex 0.9 ng/mL 2 Free) [0.0-6.5 (06/29/16 11:25 AM) ng/mL] Chol [0-199 mg/dL] 148 mg/dL (06/29/16 11:25 AM) Trig [0-149 mg/dL] 75 mg/dL (06/29/16 11:25 AM) HDL [40-84 mg/dL] 54 mg/dL (06/29/16 11:25 AM) LDL [0-130 mg/dL] 79 mg/dL (06/29/16 11:25 AM) VLDL Cholesterol 15 mg/dL [0-28 mg/dL] (06/29/16 11:25 AM) Cardiac Risk 2.7 [0.0-5.7] (06/29/16 11:25 AM) TSH with Reflex Free 2.10 T4 [0.35-4.94] (06/29/16 11:25 AM) 1Result Comment: Multiply eGFR results by 1.21 for race. 2Result Comment: AUA PSA Best Practice Guidelines: Age-Adjusted PSA Values by Ethnic Group Age Range Asians - Caucasians Americans 40-49 0-2.0 0-2.0 0-2.5 50-59 0-3.0 0-4.0 0-3.5 60-69 0-4.0 0-4.5 0-4.5 70-79 0-5.0 0-5.5 0-6.5 Urinalysis Most recent to 1 oldest [Reference Range]: UA Color Yellow (06/29/16 11:28 AM) UA Appear Clear (06/29/16 11:28 AM) UA pH [5.0-8.0] 6.5 (06/29/16 11:28 AM) UA Leuk Est Pos 1+ [Negative] *ABN* (06/29/16 11:28 AM) UA Nitrite Negative [Negative] (06/29/16 11:28 AM) UA Protein Negative [Negative] (06/29/16 11:28 AM) UA Glucose Negative [Negative] (06/29/16 11:28 AM) UA Ketones Negative [Negative] (06/29/16 11:28 AM) UA Urobilinogen 0.2 mg/dL [<1.0 mg/dL] (06/29/16 11:28 AM) UA Bili [Negative] Negative (06/29/16 11:28 AM) UA Blood [Negative] Negative (06/29/16 11:28 AM) UA Spec Grav 1.024 [1.003-1.030] (06/29/16 11:28 AM) Type Voided (06/29/16 11:28 AM) UA WBC [0-4] 0-2 (06/29/16 11:28 AM) UA RBC [0-4] 0-4 (06/29/16 11:28 AM) Epithelial Cells 0-2 (06/29/16 11:28 AM) UA Hyal Cast [0-3] 1-3 (06/29/16 11:28 AM) Immunizations Vaccine Date Refusal Reason influenza [...] s. Plan repeat EGD in 3 years 15261 7in 2010 16096 9crushing injury- screws and plates in 2003 Social History Social History Type Response Smoking Status Former smoker; Type: Oral1 1DC 1996 Assessment and Plan Extracted from: Title: Ambulatory Patient Education Author: Pop Vizcaino MD Date: Family Medicine Cardenas's Esophagus Cardenas's [...] upper gastrointestinal endoscopy. A thin, flexible tube (endoscope) is passed down the esophagus. The endoscope has a light and camera on the end. Your caregiver uses the endoscope to view the inside of the esophagus. A tissue sample may also be taken and examined under a microscope (biopsy). If cancer cells are found during the [...] Your stools are bright red or dark. This information is not intended to replace advice given to you by your health care provider. Make sure you discuss any questions you have with your health care provider. Document Released: 12/09/2004 Document Revised: 03/20/2013 Document Reviewed: ExitCare Patient Information 2016 [employer]. No follow up information was provided. Extracted from: Title: Office Visit Note Author: Pop Vizcaino MD Date: 06/29/16 Assessment/Plan Cardenas's esophagus This issue was reviewed, appears stable, and current therapy continued except as mentioned. Appropriate lab was reviewed from the most recent appropriate entry and lab was ordered if needed in the cpoe/nursing orders, and follow up recommended generally in 90 days and no later then six months. Seeing Dr. FLORES. CT and EGD in 2014 reviewed. Cancer of colon The patient's issue is nearly or completely resolved. There is no further issues or testing desired by them at this time. Depression Trial of celexa 10mg po daily. RTC in 30 days or sooner prn. No SIs. The patient has family members present who are agreeable with today' s plan and have no additional concerns or requests. here. ED (erectile dysfunction) Samples of the new medication were provided as a courtesy. Side effects were discussed and follow up was recommended. Viagra 50mg po daily prn samples given. Use as directed. Elevated cholesterol This issue was reviewed, appears stable, and current therapy continued except as mentioned. Appropriate lab was reviewed from the most recent appropriate entry and lab was ordered if needed in the cpoe/nursing orders, and follow up recommended generally in 90 days and no later then six months. Lab pending. Fever Laband CXR pending. Needs to document temps at home. GERD without esophagitis We discussed several options for treatment for this condition. The patient declined any changes or other treatments at this time. Has meds. Consider nexium or zantac when willing.Needs to consider reconsult with Dr. FLORES. Hypertension NOS This issue was reviewed, appears stable, and current therapy continued except as mentioned. Appropriate lab was reviewed from the most recent appropriate entry and lab was ordered if needed in the cpoe/nursing orders, and follow up recommended generally in 90 days and no later then six months. BP doing well.
--- OUTSIDE RECORDS SUMMARY | 2017-02-20 22:03 | XMS REPORT | Referral Summary ---
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 Discharge Disposition: Home or Self Care Attending Physician: Myron Shine MD Admitting Physician: Myron Shine MD Referring Physician: Pop Vizcaino MD Vital Signs Most recent to 1 oldest [Reference Range]: Temperature Tympanic 36.6 degC [36.6-38.1 degC] (12/04/14 10:46 AM) Blood Pressure 126/70 mmHg [90-140/60-90 mmHg] (12/04/14 10:46 AM) Problem List Condition Effective Dates Status [...] days, # 90 caps, 3 Refill(s), Pharmacy: [facility] , 1 caps Oral Daily,x90 days [...] Rash, # 30 g, 0 Refill(s), Pharmacy: [facility] [address] Start Date: 04/24/14 Status: Ordered Vitamin D [...] Patient Education Author: Myron Shine MD Date: 12/04 Family Medicine Cardenas's Esophagus Cardenas's esophagus occurs [...] Released: 12/09/2004 Document Revised: 03/20/2013 Document Reviewed: [facility] Patient Information 2014 [employer]. No follow up information was provided.
--- OUTSIDE RECORDS SUMMARY | 2017-02-20 22:03 | XMS REPORT | Referral Summary ---
Author Author Via [facility], Cardiology Organization [facility], Cardiology Address Unknown Phone Unavailable Care Team Providers Care Job Placement Counselor Name Role Phone Ashley Vizcaino Primary Care Physician [phone] Encounter [facility] [id number] Date(s): 08/24/16 - 08/24/16 Via CHARLIE Lee [facility], Cardiology [address] [place] [address] [place] Discharge Diagnosis: Effort angina Discharge Diagnosis: Abnormal EKG Discharge Diagnosis: Hypercholesteremia Discharge Diagnosis: Anemia Discharge Diagnosis: Iron deficiency Discharge Disposition: -Home or Self Care Attending Physician: Freddie Mclaughlin MD Admitting Physician: Freddie Mclaughlin MD Referring Physician: Pop Vizcaino MD Vital Signs Most recent to 1 oldest [Reference Range]: Peripheral Pulse 70 bpm Rate [60-100 bpm] (08/24/16 9:51 AM) Blood Pressure 120/82 mmHg [90-140/60-90 mmHg] (08/24/16 9:51 AM) Problem List Condition Effective Dates Status [...] Daily, # 45 tabs, 0 Refill(s), Pharmacy: [facility], 0.5 tabs Oral Daily Start Date: 08/24/16 Status: Ordered ferrous sulfate 325 mg (65 mg elemental iron) oral tablet 325 mg 1 tabs, Oral, BID, # 180 tabs, 0 Refill(s), Pharmacy: [facility], 1 tabs Oral BID Start Date: 07/20/16 Status: Ordered simvastatin 40 mg oral tablet 40 mg 1 tabs, Oral, Bedtime (once a day), # 90 tabs, 1 Refill(s), Pharmacy: [facility], 1 tabs Oral Bedtime (once a day) Start Date: 07/29/16 Status: Ordered tamsulosin 0.4 mg oral capsule 0.4 mg 1 caps, Oral, Bedtime (once a day), # 90 caps, 1 Refill(s), Pharmacy: [facility], 1 caps Oral Bedtime (once a day) Start Date: 07/29/16 Status: Ordered triamcinolone 0.1% topical cream 1 stacey, Topical, BID, Rash, # 30 g, 0 Refill(s), Pharmacy: [facility] [address] Start Date: 04/24/14 Status: Ordered Vitamin D with Minerals oral tablet 1 tabs, Oral, Daily, # 90 tabs, 0 Refill(s) Start Date: 04/23/14 Status: Ordered Results Hematology Most recent to 1 oldest [Reference Range]: WBC [4.8-10.8 5.1 10*3/uL 10*3/uL] (08/24/16 10:55 AM) RBC [4.60-6.20] 4.47 *LOW* (08/24/16 10:55 AM) Hgb [14.0-18.0 12.5 gm/dL gm/dL] *LOW* (08/24/16 10:55 AM) Hct [42.0-52.0 %] 38.9 % *LOW* (08/24/16 10:55 AM) MCV [82.0-99.0 fL] 87.0 fL (08/24/16 10:55 AM) MCH [27.0-32.0 pg] 28.0 pg (08/24/16 10:55 AM) MCHC [32.0-36.0 32.1 gm/dL gm/dL] (08/24/16 10:55 AM) RDW [11.5-14.5 %] 21.1 % *HI* (08/24/16 10:55 AM) Platelet [150-400 221 10*3/uL 10*3/uL] (08/24/16 10:55 AM) MPV [8.8-14.8 fL] 10.2 fL (08/24/16 10:55 AM) Immature 0.4 % Granulocytes (08/24/16 10:55 AM) [0.0-1.0 %] Neutrophils [51-75 63 % %] (08/24/16 10:55 AM) Lymphocytes [20-46 28 % %] (08/24/16 10:55 AM) Monocytes [4-11 %] 7 % (08/24/16 10:55 AM) Eosinophils [0-4 %] 2 % (08/24/16 10:55 AM) Basophils [0-2 %] 0 % (08/24/16 10:55 AM) Neutro Absolute 3.24 10*3 [1.90-7.00 10*3] (08/24/16 10:55 AM) Lymph Absolute 1.44 10*3 [0.80-3.30 10*3] (08/24/16 10:55 AM) Yell Absolute 0.35 10*3 [0.30-1.00 10*3] (08/24/16 10:55 AM) Eos Absolute 0.08 10*3 [0.00-0.50 10*3] (08/24/16 10:55 AM) Baso Absolute 0.00 10*3 [0.00-0.20 10*3] (08/24/16 10:55 AM) Immunizations Vaccine Date Refusal Reason influenza [...] s. Plan repeat EGD in 3 years 38566 7in 2010 13928 9crushing injury- screws and plates in 2003 Social History Social History Type Response Smoking Status Former smoker; Type: Oral1 1DC 1996 Assessment and Plan Referrals to Other Providers Referred by: Freddie Mclaughlin MD
--- OUTSIDE RECORDS SUMMARY | 2017-02-20 22:03 | XMS REPORT | Referral Summary ---
Author Author [facility], Surgery Organization [facility], Surgery Address Unknown Phone Unavailable Care Team Providers Care Counselor Marriage And Family Name Role Phone Ashley Vizcaino Primary Care Physician [phone] Encounter VC Date(s): 05/21/15 - 05/21/15 Via CHARLIE Lee [facility], Surgery [address] [place] [address] [place] [address] Discharge Diagnosis: History of esophageal hernia repair Discharge Disposition: 01-Home or Self Care Attending Physician: Myron Shine MD Admitting Physician: Myron Shine MD Referring Physician: Myron Shine MD Vital Signs Most recent to 1 oldest [Reference Range]: Temperature Oral 37 degC [35.8-37.3 degC] (05/21/15 1:40 PM) Problem List Condition Effective Dates Status [...] QIDACHS, # 1,200 mL, 0 Refill(s), Pharmacy: [facility] [address], 10 mL Oral QIDACHS,x30 days Start Date: [...] QID, # 120 tabs, 0 Refill(s), Pharmacy: [email or web address] [address], 1 tabs Oral QID Start Date: 03/05/15 Status: Ordered Remeron 15 mg oral tablet See Instructions, 1 TABS ORAL BEDTIME (ONCE A DAY), # 30 tabs, 2 Refill(s), eRx : [email or web address] [address], 1 TABS ORAL BEDTIME (ONCE A DAY) Start Date: 05/07/15 Status: Ordered simvastatin 40 mg oral tablet See Instructions, TAKE 1 TABLET EVERY DAY, # 90 tabs, eRx: [facility], TAKE 1 TABLET EVERY DAY Start Date: 11/04/15 Status: Ordered tamsulosin 0.4 mg oral capsule See Instructions, TAKE 1 CAPSULE ONE TIME DAILY AT BEDTIME, # 90 caps, eRx: [facility], TAKE 1 CAPSULE ONE TIME DAILY AT BEDTIME Start Date: 11/04/15 Status: Ordered triamcinolone 0.1% topical cream 1 stacey, Topical, BID, Rash, # 30 g, 0 Refill(s), Pharmacy: [email or web address] [address] Start Date: 04/24/14 Status: Ordered Viagra 100 mg oral tablet 1 tabs, Oral, Daily, as needed for erectile dysfunction, # 12 tabs, 3 Refill(s) , Pharmacy: [email or web address] [address], 1 tabs Oral Daily,PRN:as needed for erectile [...] s. Plan repeat EGD in 3 years 57610 7in 2010 93467 9crushing injury- screws and plates in 2003 Social History Social History Type Response Smoking Status Former smoker; Type: Oral1 1DC 1996 Assessment and Plan Extracted from: Title: Ambulatory Patient Education Author: Myron Shine MD Date: Ophthalmology Pain Relief Preoperatively and Postoperatively Being [...] a mild laxative. IV patient-controlled analgesia pump (HAND INSERTER OPERATOR pump) You can get your pain [...] epidural pain control A thin, soft tube (catheter) is put into your back. Pain medicine [...] sooner. Medicine that numbs the area (local anesthetic) You may receive an injection of pain medicine near where the pain is ( local infiltration). You may receive an injection of pain medicine near the nerve that controls the sensation to a specific part of the body (peripheral nerve block). Medicine may be put in the spine to block pain (spinal block). Opioids Moderate to moderately severe acute pain [...] Revised: 12/11/2012 Document Reviewed: ExitCare Patient Information 2015 [employer]. This information is not intended to replace advice given to you by your health care provider. Make sure you discuss any questions you have with your health care provider. No follow up information was provided. Extracted from: Title: Office Visit Note Author: Myron Shine MD Date: 05/21/15 Assessment/Plan History of esophageal hernia repair Ordered: Postoperative Est [id number] Plan: Patient was informed I am quite pleased to see that he is currently now doing well. Work release was signed to return back to work on May 27, 2015. Patient was returned to the office at this time and a when necessary basis. He is to return to his PCP for his ongoing medical care.
--- OUTSIDE RECORDS SUMMARY | 2017-02-20 22:04 | XMS REPORT | Referral Summary ---
Author Author Via [facility], Surgery Organization Via [facility]IE [facility], Surgery Address Unknown Phone Unavailable Care Team Providers Care Sales Representative Printing Name Role Phone Ashley Vizcaino Primary Care Physician [phone] Encounter VC Date(s): 02/17/15 - 02/17/15 Via CHARLIE Lee [facility], Surgery [address] [place] [address] [place] [address]- Discharge Diagnosis: Vomiting Discharge Disposition: 01-Home or Self Care Attending Physician: Myron Shine MD Admitting Physician: Myron Shine MD Referring Physician: Pop Vizcaino MD Vital Signs Most recent to 1 oldest [Reference Range]: Temperature Tympanic 37.5 degC [36.6-38.1 degC] (02/17/15 12:48 PM) Peripheral Pulse 104 bpm Rate [60-100 bpm] *HI* (02/17/15 12:48 PM) Respiratory Rate 10 br/min [14-20 br/min] *LOW* (02/17/15 12:48 PM) Blood Pressure 104/60 mmHg [90-140/60-90 mmHg] (02/17/15 12:48 PM) SpO2 96 % (02/17/15 12:48 PM) Problem List Condition Effective Dates Status [...] QIDACHS, # 1,200 mL, 0 Refill(s), Pharmacy: [facility] [id number], 10 mL Oral QIDACHS,x30 days Start Date: [...] QID, # 120 tabs, 0 Refill(s), Pharmacy: [facility] [address], 1 tabs Oral QID Start Date: 03/05/15 Status: Ordered Remeron 15 mg oral tablet See Instructions, 1 TABS ORAL BEDTIME (ONCE A DAY), # 30 tabs, 2 Refill(s), [facility], 1 TABS ORAL BEDTIME (ONCE A DAY) Start Date: 05/07/15 Status: Ordered simvastatin 40 mg oral tablet 1 tabs, Oral, Daily, X 90 days, # 90 tabs, 3 Refill(s), Pharmacy: [facility] , 1 tabs Oral Daily,x90 days Start Date: 10/09/14 Stop Date: 10/04/15 Status: Ordered tamsulosin 0.4 mg oral capsule 1 caps, Oral, Bedtime (once a day), X 90 days, # 90 caps, 3 Refill(s), Pharmacy : [facility], 1 caps Oral Bedtime (once a day),x90 days Start Date: 10/09/14 Stop Date: 10/04/15 Status: Ordered triamcinolone 0.1% topical cream 1 stacey, Topical, BID, Rash, # 30 g, 0 Refill(s), Pharmacy: [facility] [address] Start Date: 04/24/14 Status: Ordered Viagra 100 mg oral tablet 1 tabs, Oral, Daily, as needed for erectile dysfunction, # 12 tabs, 3 Refill(s) , Pharmacy: [facility] [address], 1 tabs Oral Daily,PRN:as needed for erectile [...] s. Plan repeat EGD in 3 years 94554 7in 2010 58684 9crushing injury- screws and plates in 2003 Social History Social History Type Response Smoking Status Former smoker; Type: Oral1 1DC 1996 Assessment and Plan Extracted from: Title: Office Visit Note Author: Myron Shine MD Date: 02/17/15 Assessment/Plan Vomiting Ordered: Postoperative Est [id number] Orders: metoclopramide, 10 mg 1 tabs, Oral, q6hr, # 40 tabs, 0 Refill(s), [facility] [address], 1 tabs Oral q6hr CBC w/ Differential XR Abdomen Complete w/ Decub/Erect Plan: Is radiographic unremarkable. His white count was slightly elevated with a left shift which was somewhat concerning. From a physical examination standpoint however he did not have significant abdominal tenderness. He was afebrile from a vital standpoint. I elected not to initiate empiric antibiotics. I did place patient on Reglan for suspected gastroparesis and to help with his nausea. Patient was instructed that I would like for him to return to the office tomorrow for repeat examination and repeat lab. He was to contact me by phone this evening if his symptoms would become worse or if there were any concern.
--- OUTSIDE RECORDS SUMMARY | 2017-02-20 22:04 | XMS REPORT | Referral Summary ---
Author Author [facility] Organization [facility] Address Unknown Phone Unavailable Care Team Providers Care Roll Up Machine Operator Name Role Phone Ashley Vizcaino Primary Care Physician [phone] Encounter VC Date(s): 03/14/15 - 03/14/15 [facility] [address] [place] [address] [place] Agustin [address]- [place] Discharge Diagnosis: Postop check Discharge Diagnosis: GERD (gastroesophageal reflux disease) Discharge Diagnosis: Persistent vomiting Discharge Disposition: -Home or Self Care Attending Physician: Myron Shine MD Admitting Physician: Myron Shine MD Referring Physician: Pop Vizcaino MD Vital Signs Most recent to 1 oldest [Reference Range]: Peripheral Pulse 68 bpm Rate [60-100 bpm] (03/14/15 10:07 AM) Respiratory Rate 20 br/min [14-20 br/min] (03/14/15 10:07 AM) Blood Pressure 114/64 mmHg [90-140/60-90 mmHg] (03/14/15 10:07 AM) Problem List Condition Effective Dates Status [...] oral suspension 1 g 10 mL, Oral, RAVI, # 1,200 mL, 0 Refill(s), Pharmacy: [facility] [id number], 10 mL Oral QIDACHS,x30 days Start Date: [...] QID, # 120 tabs, 0 Refill(s), Pharmacy: [facility] [id number], 1 tabs Oral QID Start Date: 03/05/15 Status: Ordered Remeron 15 mg oral tablet See Instructions, 1 TABS ORAL BEDTIME (ONCE A DAY), # 30 tabs, 2 Refill(s), eRx : [facility] [id number], 1 TABS ORAL BEDTIME (ONCE A DAY) Start Date: 05/07/15 Status: Ordered simvastatin 40 mg oral tablet 1 tabs, Oral, Daily, X 90 days, # 90 tabs, 3 Refill(s), Pharmacy: [facility] , 1 tabs Oral Daily,x90 days [...] Rash, # 30 g, 0 Refill(s), Pharmacy: [facility] 57222 Start Date: 04/24/14 Status: Ordered Viagra 100 mg oral tablet 1 tabs, Oral, Daily, as needed for erectile dysfunction, # 12 tabs, 3 Refill(s) , Pharmacy: [facility] 57265, 1 tabs Oral Daily,PRN:as needed for erectile [...] s. Plan repeat EGD in 3 years 99611 7in 2010 22939 9crushing injury- screws and plates in 2003 Social History Social History Type Response Smoking Status Former smoker; Type: Oral1 1DC 1996 Assessment and Plan Extracted from: Title: Office Visit Note Author: Myron Shine MD Date: 03/14/15 Assessment/Plan GERD (gastroesophageal reflux disease) Ordered: Postoperative Est 83289 Persistent vomiting Ordered: Postoperative Est 82098 Postop check Ordered: Postoperative Est 43029 Plan:I did review his recent esophagram/upper GI report from March 12, 2015. I am pleased to see that the contrast did flow from the esophagus through the stomach and into the duodenum. Initially after surgery this was not the case and the contrast "stayed within his esophagus and upper stomach". Patient was found to have a fair amount of reflux. His motility was also found to be diminished. I informed the patient that overall I am pleased with his radiology report. I informed the patient that I would encourage him to stay on a more soft diet and avoid eating solid meats at this time such as steak/ hamburger. I informed him that I would try to avoid eating or drinking after about 6 or 7 o'clock in the evening. He is to continue to take the Prilosec on a twice a day basis. He is to continue to take the Reglan one half hour before meals and before bed. I informed the patient that I would like to see him back in about 2 weeks to recheck on his progress. He should notify me sooner if any problems should arise.
--- OUTSIDE RECORDS SUMMARY | 2017-02-20 22:04 | XMS REPORT | Referral Summary ---
Author Organization Unknown Address Unknown Phone Unavailable Care Team Providers Care Wood Casket Maker Name Role Phone Ashley Vizcaino Primary Care Physician [phone] Encounter VC Date(s): 12/12/14 - 12/12/14 [facility] [address] [place] [address] Discharge Disposition: Home or Self Care Attending Physician: Brendan Fishman MD Vital Signs Most recent to 1 oldest [Reference Range]: Temperature Oral 36.5 degC [35.8-37.3 degC] (12/12/14 7:53 AM) Apical Heart Rate 72 bpm [60-100 bpm] (12/12/14 7:53 AM) Respiratory Rate 16 br/min [14-20 br/min] (12/12/14 7:53 AM) Blood Pressure 140/102 mmHg [90-140/60-90 mmHg] (12/12/14 7:53 AM) Most recent to 1 oldest [Reference Range]: SpO2 97 % (12/12/14 7:53 AM) Problem List Condition Effective Dates Status [...] # 90 caps, 3 Refill(s), Pharmacy : [facility], 1 caps Oral Bedtime (once a day),x90 days Start Date: 10/09/14 Stop Date: 10/04/15 Status: Ordered triamcinolone 0.1% topical cream 1 stacey, Topical, BID, Rash, # 30 g, 0 Refill(s), Pharmacy: [facility] Start Date: 04/24/14 Status: Ordered Vitamin D [...] s. Plan repeat EGD in 3 years 32323 5in 2010 43097 7crushing injury- screws and plates in 2003 Social History Social History Type Response Smoking Status Former smoker; Type: Oral1 1DC 1996 Assessment and Plan No data available for this section
--- OUTSIDE RECORDS SUMMARY | 2017-02-20 22:04 | XMS REPORT | Referral Summary ---
Author Author [facility] Organization [facility] Address Unknown Phone Unavailable Care Team Providers Care Brim Raiser Name Role Phone Ashley Vizcaino Primary Care Physician [phone] Encounter Date(s): 09/03/16 - 09/03/16 [facility] [address] [place] [address] Discharge Disposition: 01-Home or Self Care Attending Physician: Freddie Mclaughlin MD Admitting Physician: Freddie Mclaughlin MD Referring Physician: Freddie Mclaughlin MD Vital Signs No data available for this section Problem List Condition Effective Dates Status Health [...] Daily, # 45 tabs, 0 Refill(s), Pharmacy: [facility], 0.5 tabs Oral Daily Start Date: 08/24/16 Status: Ordered ferrous sulfate 325 mg (65 mg elemental iron) oral tablet 325 mg 1 tabs, Oral, BID, # 180 tabs, 0 Refill(s), Pharmacy: [facility], 1 tabs Oral BID Start Date: 07/20/16 Status: Ordered simvastatin 40 mg oral tablet 40 mg 1 tabs, Oral, Bedtime (once a day), # 90 tabs, 1 Refill(s), Pharmacy: [facility], 1 tabs Oral Bedtime (once a day) Start Date: 07/29/16 Status: Ordered tamsulosin 0.4 mg oral capsule 0.4 mg 1 caps, Oral, Bedtime (once a day), # 90 caps, 1 Refill(s), Pharmacy: [facility], 1 caps Oral Bedtime (once a day) Start Date: 07/29/16 Status: Ordered triamcinolone 0.1% topical cream 1 stacey, Topical, BID, Rash, # 30 g, 0 Refill(s), Pharmacy: [facility] [address]43 Start Date: 04/24/14 Status: Ordered Vitamin D [...] s. Plan repeat EGD in 3 years 65679 7in 2010 73750 9crushing injury- screws and plates in 2003 Social History Social History Type Response Smoking Status Former smoker; Type: Oral1 1DC 1996 Assessment and Plan No data available for this section
--- OUTSIDE RECORDS SUMMARY | 2017-02-20 22:04 | XMS REPORT | Referral Summary ---
Author Author [facility] Organization [facility] Address Unknown Phone Unavailable Care Team Providers Care Right Of Way Worker Name Role Phone Ashley Vizcaino Primary Care Physician [phone] Encounter VC Date(s): 07/29/16 - 07/29/16 [facility] [address] [place] [address]- Discharge Diagnosis: Anemia Discharge Diagnosis: Hypertension NOS Discharge Diagnosis: Chest pain Discharge Diagnosis: Cardenas's esophagus Discharge Diagnosis: CAP (community acquired pneumonia) Discharge Diagnosis: Cancer of colon Discharge Diagnosis: Elevated cholesterol Discharge Disposition: 01-Home or Self Care Attending Physician: Pop Vizcaino MD Admitting Physician: Pop Vizcaino MD Vital Signs Most recent to 1 oldest [Reference Range]: Blood Pressure 110/70 mmHg [90-140/60-90 mmHg] (07/29/16 9:27 AM) Problem List Condition Effective Dates Status [...] 10 mg 1 tabs, Oral, Daily, # 90 tabs, 1 Refill(s), Pharmacy: [facility], 1 tabs Oral Daily Start Date: 07/29/16 Status: Ordered Cialis 5 mg oral tablet 1 tabs, Oral, Daily, as needed for erectile dysfunction, # 20 tabs, 0 Refill(s) , 1 tabs Oral Daily,PRN:as needed for erectile dysfunction Start Date: 10/25/14 Status: Ordered ferrous sulfate 325 mg (65 mg elemental iron) oral tablet 325 mg 1 tabs, Oral, BID, # 180 tabs, 0 Refill(s), Pharmacy: [facility], 1 tabs Oral BID Start Date: 07/20/16 Status: Ordered simvastatin 40 mg oral tablet 40 mg 1 tabs, Oral, Bedtime (once a day), # 90 tabs, 1 Refill(s), Pharmacy: [facility], 1 tabs Oral Bedtime (once a day) Start Date: 07/29/16 Status: Ordered tamsulosin 0.4 mg oral capsule 0.4 mg 1 caps, Oral, Bedtime (once a day), # 90 caps, 1 Refill(s), Pharmacy: [facility], 1 caps Oral Bedtime (once a day) Start Date: 07/29/16 Status: Ordered triamcinolone 0.1% topical cream 1 stacey, Topical, BID, Rash, # 30 g, 0 Refill(s), Pharmacy: [facility] [address]49 Start Date: 04/24/14 Status: Ordered Viagra 100 mg oral tablet 1 tabs, Oral, Daily, as needed for erectile dysfunction, # 12 tabs, 3 Refill(s) , Pharmacy: [facility] 14494, 1 tabs Oral Daily,PRN:as needed for erectile [...] s. Plan repeat EGD in 3 years 00641 7in 2010 43733 9crushing injury- screws and plates in 2003 Social History Social History Type Response Smoking Status Former smoker; Type: Oral1 1DC 1996 Assessment and Plan Extracted from: Title: Ambulatory Patient Education Author: Pop Vizcaino MD Date: Preventive Medicine Cholesterol Cholesterol is a white, waxy, fat-like substance needed by your body in small amounts. The liver makes all the cholesterol you need. Cholesterol is carried from the liver by the blood through the blood vessels. Deposits of cholesterol ( plaque) may build up on blood vessel valdez. These make the arteries narrower and stiffer. Cholesterol plaques increase the risk for heart attack and stroke. You cannot feel your cholesterol level even if it is very high. The only way to know it is high is with a blood test. Once you know your cholesterol levels, you should keep a record of the test results. Work with your health care provider to keep your levels in the desired range. WHAT DO THE RESULTS MEAN? Total cholesterol is a rough measure of all the cholesterol in your blood. LDL is the so-called bad cholesterol. This is the type that deposits cholesterol in the valdez of the arteries. You want this level to be low. HDL is the good cholesterol because it cleans the arteries and carries the LDL away. You want this level to be high. Triglycerides are fat that the body can either burn for energy or store. High levels are closely linked to heart disease. WHAT ARE THE DESIRED LEVELS OF CHOLESTEROL? Total cholesterol below 200. LDL below 100 for people at risk, below 70 for those at very high risk. HDL above 50 is good, above 60 is best. Triglycerides below 150. HOW CAN I LOWER MY CHOLESTEROL? Diet. Follow your diet programs as directed by your health care provider. Choose fish or white meat chicken and turkey, roasted or baked. Limit fatty cuts of red meat, fried foods, and processed meats, such as sausage and lunch meats. Eat lots of fresh fruits and vegetables. Choose whole grains, beans, pasta, potatoes, and cereals. Use only small amounts of olive, corn, or canola oils. Avoid butter, mayonnaise, shortening, or palm kernel oils. Avoid foods with trans fats. Drink skim or nonfat milk and eat low-fat or nonfat yogurt and cheeses. Avoid whole milk, cream, ice cream, egg yolks, and full-fat cheeses. Healthy desserts include salvador food cake, rianna snaps, animal crackers, hard candy, popsicles, and low-fat or nonfat frozen yogurt. Avoid pastries, cakes, pies, and cookies. Exercise. Follow your exercise programs as directed by your health care provider. A regular program helps decrease LDL and raise HDL. A regular program helps with weight control. Do things that increase your activity level like gardening, walking, or taking the stairs. Ask your health care provider about how you can be more active in your daily life. Medicine. Take medicine only as directed by your health care provider. Medicine may be prescribed by your health care provider to help lower cholesterol and decrease the risk for heart disease. If you have several risk factors, you may need medicine even if your levels are normal. This information is not intended to replace advice given to you by your health care provider. Make sure you discuss any questions you have with your health care provider. Document Released: 06/14/2002 Document Revised: 10/10/2015 Document Reviewed: [employer] Interactive Patient Education 2016 Else[employer] Inc. No follow up information was provided. Extracted from: Title: Office Visit Note Author: Pop Vizcaino MD Date: 07/29/16 Assessment/Plan Anemia This issue was reviewed, appears stable, and current therapy continued except as mentioned. Appropriate lab was reviewed from the most recent appropriate entry and lab was ordered if needed in the cpoe/nursing orders, and follow up recommended generally in 90 days and no later then six months. Seeing Dr. FLORES and pending EGD/colonoscopy reported. Assessment/Plan 1.Esophageal dysphagia Ordered: Office Visit Level 4 Est 06411 Plan:Bidirectional endoscopy. EGD with possible dilatation and colonoscopy . I did review the patient's chart includingoffice note performed by his PCP fromJuly 13, 2016. Reviewed lab work from June 29, 2016. Patient was anemic At that time with a hemoglobin of 10.6. Reviewed patient's reoperationoperative note from January 31, 2015. ReviewedEGD with pathology report from November 21, 2014 that revealed evidence forBarrett's epithelium with associated reactive atypia. It doesappear that his last endoscopic evaluation of his colon was in March 2008. Patient had previously underwent an extended right hemicolectomy. He was not found to have any evidence for recurrenceof his prior malignancyand his colonoscopy was normal with exception of some sigmoid diverticulum. I informed the patient that with his history for Cardenas'swith associated reactive atypia, personal history for colon cancer,history for component of dysphagia,finding of anemiaand his complicated surgical historyin regards to his prior louie-esophageal hernia that I would recommend undergo both an esophagogastroduodenoscopy with possible dilatationand a colonoscopy for further evaluation. Risk of endoscopy was discussed with the patient. Risks include but are not inclusive of bleeding and/or perforation requiring surgery. Patient understood and was scheduled. Cardeans's esophagus See above. Cancer of colon The patient's issue is nearly or completely resolved. There is no further issues or testing desired by them at this time. CAP (community acquired pneumonia) The patient's issue is nearly or completely resolved. There is no further issues or testing desired by them at this time. Needs repeat cxr in 1-2 weeks. IMPRESSION: 1. Persistent focal parenchymal abnormality right lung which may be the patchy pneumonitis. Followup with chest x-ray in 4-6 weeks. [1] [place] [facility] I personally called the schedulers to arrange a consultation. Elevated cholesterol This issue was reviewed, appears stable, and current therapy continued except as mentioned. Appropriate lab was reviewed from the most recent appropriate entry and lab was ordered if needed in the cpoe/nursing orders, and follow up recommended generally in 90 days and no later then six months. Refill meds. Hypertension NOS This issue was reviewed, appears [...] been no chest pain, chest pressure, soa/chung. The patient was given the vaccines requested per protocol and according to those needed for school/family/college/etc. Flu vaccine per request.
[2017-02-20 22:15] VITALS: Ht 167.6 cm; Wt 63.0 kg
[2017-02-20] MEDS ORDERED: NORMAL SALINE 1,000 ML IV ONE (22:57)
[2017-02-20] MEDS ORDERED: FENTANYL 100mcg/2ml INJECTION IV ONE ×2 (23:00→23:15)
[2017-02-20] MEDS ORDERED: ONDANSETRON 4mg/2ml INJECTION IV ONE (23:00)
[2017-02-20] MEDS ORDERED: IOHEXOL 300 MG/ML 75ml INJECTION ONE (23:11)
[2017-02-20] MEDS ORDERED: NORMAL SALINE 100 ML ONE (23:11)
[2017-02-20] MEDS ORDERED: SALINE FLUSH 10ml SYRINGE ONE (23:12)
--- OUTSIDE RECORDS SUMMARY | 2017-02-20 23:12 | XMS REPORT | Continuity of Care Document ---
Author Author [facility] Organization [facility] Address Unknown Phone Unavailable Support Name Relationship Address Phone CRYSTAL FRASER MD Caregiver [address] [place] [address] [place] [address] [phone] JONO OLMOS FACS, MD Caregiver [address] [place] [address] [place] [address] [phone] BUDDY RIDLEY Next Of Kin [address] [place] [address] Insurance Providers Payer Name Policy Number Subscriber Name Relationship Medicare [id number] Zack Ridley [address] [facility] [id number] Zack Ridley 16 Self Advance Directives Directive [...] F (96.8 - 99.1) Temperature (Calculated Celsius) 36.98974 degrees C (36.0 - 37.3) Temperature Source [...]
--- OUTSIDE RECORDS SUMMARY | 2017-02-20 23:13 | XMS REPORT | Continuity of Care Document ---
Author Author [facility] Organization [facility] Address Unknown Phone Unavailable Allergies Active Description [...] 6.5 NA 5.0-8.0 Protein Negative Negative Specific Struthers 1.024 NA 1.003-1.030 UA Collection type Voided [...] Status Pt. Type Provider Facility Loc./Unit Complaint [id number] 10/27/2016 10:21:00 2016 23:59:00 DIS Outpatient Freddie Mclaughlin [facility] 1 MO RCK [id number] 10/13/2016 13:40:00 2016 23:59:00 DIS Outpatient Pop Vizcaino [facility] FM 2 wk faviola [id number] 09/29/2016 08:16:00 2015 23:59:00 DIS Outpatient Pop Vizcaino [facility] Stint put in 3 wk faviola [id number] 09/21/2016 15:40:00 2015 23:59:00 DIS Outpatient Kanjean pierre, [place] [facility] Card 1 WK POST STENT [id number] 09/08/2016 12:16:00 2015 23:59:00 DIS Outpatient Kanjean pierre, [place] [facility] Card HC consult myrna [id number] 09/03/2016 12:30:00 2015 23:59:00 DIS Outpatient Freddie Mclaughlin [facility] Card TTM I20.8 R94.31 MYRNA 165CM 69KG [facility] [id number] 09/03/2016 10:56:00 2015 23:59:00 DIS Outpatient Freddie Mclaughlin [facility] Card TTM I20.8 R94.31 MYRNA 165CM 69KG [facility] [id number] 08/24/2016 09:29:00 2015 23:59:00 DIS Outpatient Freddie Mclaughlin [facility] Card NPV ANGINA LUINSTRA [id number] 08/24/2016 00:01:00 2015 23:59:00 DIS Outpatient Freddie Mclaughlin [facility] Card R07.9 [id number] 07/29/2016 09:19:00 2015 23:59:00 DIS Outpatient Pop Vizcaino [facility] FM 1 mo faviola [id number] 07/27/2016 15:47:00 2015 23:59:00 DIS Outpatient Myron Shine [facility] Surg Difficulty swallowing and weight loss [id number] 07/13/2016 09:44:00 2015 23:59:00 DIS Outpatient Pop Vizcaino [facility] FM 2 wk faviola [id number] 06/29/2016 10:49:00 2015 23:59:00 DIS Outpatient Pop Vizcaino [facility] FM TCPA FEVER OFF AND ON CLAMMY CHILLS [id number] 05/21/2015 13:19:00 2014 23:59:00 DIS Outpatient Myron Shine [facility] S[facility] Follow up for surgery [id number] 03/28/2015 09:27:00 2014 23:59:00 DIS Outpatient Myron Shine [facility] Surg fu [id number] 10/25/2014 09:18:00 2014 23:59:00 DIS Outpatient Myron Shine [facility] EGD [id number] 10/09/2014 10:16:00 2014 23:59:00 DIS Outpatient Pop Vizcaino [facility] FM f/u pneumonia [id number] 09/30/2014 13:14:00 2013 23:59:00 DIS Outpatient Pop Vizcaino [facility] COUGH [id number] 09/24/2014 09:23:00 2013 23:59:00 DIS Outpatient Pop Vizcaino [facility] FM cough [id number] 2016 06:09:00 Document Registration [id number] 03/14/2015 09:50:00 Document Registration [id number] 03/05/2015 11:00:00 Document Registration [id number] 02/26/2015 10:50:00 Document Registration [id number] 02/26/2015 09:09:00 Document Registration [id number] 02/20/2015 09:28:00 Document Registration [id number] 02/18/2015 08:38:00 Document Registration [id number] 02/17/2015 12:27:00 Document Registration [id number] 01/17/2015 10:09:00 Document Registration [id number] 01/15/2015 15:02:00 Document Registration [id number] 01/01/2015 14:11:00 Document Registration [id number] 12/27/2014 16:49:00 Document Registration [id number] 12/27/2014 08:31:00 Document Registration [id number] 12/24/2014 14:49:00 Document Registration
--- OUTSIDE RECORDS SUMMARY | 2017-02-20 23:14 | XMS REPORT | Continuity of Care Document ---
Author Author [facility] Organization [facility] Address Unknown Phone Unavailable Support Name Relationship Address Phone CRYSTAL FRASER MD Caregiver [address] [place] [address] [place] [address] [phone] JONO OLMOS FACS, MD Caregiver [address] [place] [address] [place] [address] [phone] BUDDY RIDLEY Next Of Kin [address] [place] [address] Insurance Providers Payer Name Policy Number Subscriber Name Relationship Medicare [id number] Zack Ridley 18 Self [facility] [id number] Zack Ridley 18 Self Advance Directives Directive Response Recorded Date/Time Ordered Resuscitation Status Full Code 01/08/15 9:46am Resuscitation Documents on File No 01/08/15 8:30am Chief Complaint and Reason for Visit Chief Complaint REP PARA ESOPH HERNIA/LAP JACKIE/POSS OPEN [id number] Reason for Visit Barretts esophagus GERD (gastroesophageal [...] having problems relating to your surgery at [phone]. 2. Problems such as: Temp above 101.5 degrees You develop redness, excessive swelling of the incision, increasing pain or excessive foul smelling drainage. 3. If the office is closed, call [facility] at [phone] and have your Surgeon paged. Condition at time of discharge: Good During office hours, call [phone]. After hours, please call [facility] at [phone] and have the lasting room machine operator page Dr. Robertson or the [...] F (96.8 - 99.1) Temperature (Calculated Celsius) 37.02205 degrees C (36.0 - 37.3) Pulse Rate [...] N 4.5-11.0 Name: ZACK RIDLEY Unit #: [id number] : 1945 Sex: M Loc / Svc: [facility] DOS: 01/09/15 Signed Report #: [id number] DIAGNOSTIC IMAGING REPORT TYPE OF EXAM: ESOPHOGRAM [...] CWS Encounters Encounter Location Date/Time Discharged Inpatient [facility] 01/09/15 6:00pm Recent Diagnosis Barretts esophagus GERD (gastroesophageal reflux disease) BPH (benign prostatic hyperplasia) History of colon cancer Paraesophageal hernia
[2017-02-20 23:19] LABS: BASOPHILS % (AUTO) 0.1 % (0-2); EOSINOPHILS # (AUTO) 0.1 T/MM3 (0-0.5); EOSINOPHILS % (AUTO) 1.3 % (0-4); HCT - HEMATOCRIT 41.8 % (41-53); HGB - HEMOGLOBIN 14.4 GM/DL (13.5-17.5); IMMATURE GRANULOCYTE # (AUTO) 0.02 T/MM3 (0.00-0.03); IMMATURE GRANULOCYTE % (AUTO) 0.3 % (0.0-0.5); LYMPHOCYTES # (AUTO) 1.4 T/MM3 (1-4.8); LYMPHOCYTES % (AUTO) 19.7 % (23-45); MEAN CORPUSCULAR HGB 33.5 UUG (26-34); MEAN CORPUSCULAR HGB CONC(MCHC 34.4 GM/DL (31-37); MEAN CORPUSCULAR VOLUME 97.2 UM3 (80-100); MONOCYTES # (AUTO) 0.4 T/MM3 (0-0.8); MONOCYTES % (AUTO) 5.5 % (0-9.0); NEUTROPHILS #(AUTO)-ABSOLUTE 5.2 T/MM3 (1.8-7.7); NEUTROPHILS % (AUTO) 73.1 % (33-66); WBC - WHITE BLOOD COUNT 7.2 T/MM3 (4.5-11.0)
--- NOTE | 2017-02-20 23:20 | NUR ---
UA PT STANDS AT BEDSIDE USING URINAL AT THIS TIME, URINE SAMPLE IS COLLECTED FO LAB TESTING.
[2017-02-20 23:28] LABS: ALBUMIN 4.3 G/DL (3.5-5.0); ALKALINE PHOSPHATASE 109 U/L (38-126); ANION GAP 13 MEQ/L (5-15); BUN/CREATININE RATIO 19 RATIO (6-26); CALCIUM 9.4 MG/DL (8.4-10.2); CHLORIDE 104 MEQ/L (98-107); CO2 - CARBON DIOXIDE 26 MEQ/L (22-30); CREATININE 1.1 MG/DL (0.8-1.5); GLOMERULAR FILTRATION RATE 66; GLUCOSE 153 MG/DL (75-110); POTASSIUM 3.9 MEQ/L (3.6-5); SODIUM 143 MEQ/L (134-144); TOTAL PROTEIN 6.9 G/DL (6.3-8.2)
[2017-02-20 23:29] LABS: ALBUMIN/GLOBULIN RATIO 1.7 RATIO (1.1-2.2); ALT (SGPT) 45 U/L (21-72); AST (SGOT) 26 U/L (17-59); LIPASE 151 U/L (23-300)
--- NOTE | 2017-02-20 23:33 | ERPDOC ---
Departure Disposition Decision Date: February 21, 2017 Disposition Decision Time: 01:15 Disposition: 02 TO [facility] Impression Impression Impression: Primary Impression: SBO (small bowel obstruction) Additional Impression: Small bowel ischemia Severity: Critical Condition: Improved Seen By: Physician only Referrals: CRYSTAL FRASER MD (Family) Problems/Meds/Labs Reviewed?: Yes Medications reviewed and manag: Yes Follow up care ordered?: Yes Mental Status: Alert, Oriented Critical Care Note Total Time (mins): 45 Critical Care Spent: Muki-wj-boys care of pt, Reviewing test results, Discuss the case w/staff, Documenting the MR, Discussion w/ family/DPOA During this visit the pt was: Critically Ill, At Risk of Deterioration, At Risk of Comments 45 min of critical care time assigned to this case due to its urgency, complexity of decision making, need for continued patient re-evaluation, or resources devoted to stabilizing the patient. Sepsis Confirmed/Suspected Infection: No HPI - Abdominal Pain General Chief Complaint: Abdominal Pain Stated Complaint: ABD PAIN Time Seen by Provider: 22:49 Source: patient History/Exam Limitations: no limitations HPI - Abdominal Pain Initial Comments 71yo man presents to the ER with severe LLQ pain. Pain started [id number] tonight; had a small BM around the same time. Pt tried NSAID without relief. Has never had pain like this or in this location. Pain has been progressively worsening since it began. No diarrhea, constipation, bleeding, urgency, or frequency. Occurred At: home Onset: Rapid Duration: 4-6 hrs Pain Scale: Now & Worst: 10/10 Quality: sharpness, stabbing Location: LLQ Radiation: no radiation Activities at Onset: none Associated Symptoms: nausea/vomiting Hx of Similar Symptoms: No Allergies: Coded Allergies: hydrocodone (Verified Allergy, Unknown, NAUSEA & VOMITING, 02/20/17) Past History Patient Medical History (1) Slipped Jackie fundoplication (2) Barretts esophagus (3) Status post repair of paraesophageal diaphragmatic hernia Past Medical History Metabolic: cancer, hypercholesterolemia GI: other, pancreatitis Male: BPH Surgical History General: EGD, appendix, colonoscopy, hernia, neck, other Joint: foot Family History Family PMH: FOUND: CAD, cancer Vaccines Hx Influenza Vaccination: Yes (FALL 2013) Hx Pneumococcal Vaccination: No (UNCERTAIN) Social History Sexuality: female partner Review of Systems GI Upper Abdomen: nausea, DENIES: dysphagia, food intolerances, heartburn/ indigestion, hematemesis, pain, vomiting Lower Abdomen: pain, DENIES: blood in stool, tao-colored stools, constipation , diarrhea, melena, painful BM All other Systems All Other Systems: Reviewed and Negative Physical Exam General General Nourishment: well nourished, well developed, appears stated age, adult , acute distress General Body Habitus: well groomed Vitals and Pain First Documented Vital Signs Date Time Temp Pulse Resp B/P Pulse Ox O2 Delivery O2 Flow Rate FiO2 02/20/17 22:15 97.6 73 24 217/120 98 Room Air 02/21/17 00:50 2.00 Weight: Kilograms: Height (feet): 5 Height (inches): 6.00 Triage Pain Scale: RN VS reviewed by Provider: Yes Differential Diagnoses Considering: Bowel Obstruction, Constipation, Diverticulitis, Gastroenteritis, GERD, Hernia, IBS, Neoplasm, Renal Colic, Volvulus Progress Results/Orders Orders Lab Results Medications Current ED Medications Sodium Chloride (Normal Saline IV) 1,000 ml @ 0 mls/hr Q0M ONCE IV Last administered on 02/20/17 23:25; Start 02/20/17 at 22:57; Stop 02/20/17 at 23:00 ; Status DC Fentanyl (Fentanyl) 25 mcg O ONCE IV ; Start 02/20/17 at 23:00; Stop 02/20/17 at 23:01; Status Cancel Ondansetron HCl (Zofran) 4 mg O ONCE IV Last administered on 02/20/17 23:26; Start 02/20/17 at 23:00; Stop 02/20/17 at 23:01; Status DC Iohexol 1 bottle 1 bottle STK-MED ONCE .ROUTE ; Start 02/20/17 at 23:11; Stop at 23:12; Status DC Sodium Chloride (NS) 100 ml @ As Directed STK-MED ONCE .ROUTE ; Start 02/20/17 at 23:11; Stop 02/20/17 at 23:12; Status DC Sodium Chloride (Iv Flush) 10 ml STK-MED ONCE .ROUTE ; Start 02/20/17 at 23:12; Stop 02/20/17 at 23:13; Status DC Fentanyl (Fentanyl) 50 mcg O ONCE IV Last administered on 02/20/17 23:27; Start 02/20/17 at 23:15; Stop 02/20/17 at 23:16; Status DC Morphine Sulfate (Morphine) 4 mg O ONCE IV Last administered on 02/21/17 00: 42; Start 02/21/17 at 00:45; Stop 02/21/17 at 00:46; Status DC Progress Progress 71yo man with SBO and suspected ischemia. Discussed case with on-call GS, who is ill. Spoke with back up GS, who recommended txfr due to multiple comorbidities, repeat abdominal surgeries, and lack of 'specialized' ancillary services locally. Spoke with GS at tertiary care facility; pt accepted for txfr and urgent eval. Pt voiced understanding of dx, prognosis, tx, and need for txfr and urgent evaluation. CBC: NL count with neutrophil predominance. CMP: elevated BUN, BS, and osmo UA: 1+ blood with RBCs Sepsis: NL Consult/PCP Consult/PCP #1: Physician Contacted: Dr. Muñoz Time Called: 00:33 Time of first response: 00:35 Type of discussion: Phone Consult/PCP Discussion Details Agreed that pt needs to be eval'ed by Gen Surg. Has been having fevers to 103- 104 with shaking chills; does not feel comfortable eval/operating today. Recommends contacting another surgeon; txfr if not able to contact. Consult/PCP #2: Physician Contacted: Gen Surg (Dr. Robertson) Time Called: 00:39 Time of first response: 00:45 Type of discussion: Phone Consult/PCP Discussion Details Recommends txfr to [facility] since pts regular GS is not available, pt is on plavix, and concern for incarceration. High risk surgery without specialty ancillary service. Consult/PCP #3: Physician Contacted: [facility] Time Called: 00:39 Time of first response: 00:39 Type of discussion: Phone Consult/PCP Discussion Details Discussed findings. Consult/PCP #4: Physician Contacted: [facility] (Dr. Graves) Time Called: 01:03 Time of first response: 01:12 Type of discussion: Admit Discussion/PCP Discussion Details Will accept pt for txfr. CT CT : CT: Abd/Pelvis IV contrast Interpretation: Abnormal (Distal SBO; consider closed loop or internal hernia with short segment of ischemia.), Discussed w/ Radiologist, Reviewed Written Report ELIZABETH CEE DO February 20, 2017 23:33 Mean Corpuscular Hemoglobin 33.5UUG Mean Corpuscular Hemoglobin Concent 34.4GM/DL RDW Standard Deviation 43.2FL Platelet Count 164T/MM3 Mean Platelet Volume 10.0UM3 Immature Granulocyte % (Auto) 0.3% Neutrophils (%) (Auto) 73.1% Lymphocytes (%) (Auto) 19.7% Monocytes (%) (Auto) 5.5% Eosinophils (%) (Auto) 1.3% Basophils (%) (Auto) 0.1% Absolute Immature Granulocyte (auto 0.02T/MM3 Absolute Neutrophils (auto) 5.2T/MM3 Absolute Lymphocytes (auto) 1.4T/MM3 Absolute Monocytes (auto) 0.4T/MM3 Absolute Eosinophils (auto) 0.1T/MM3 Absolute Basophils (auto) 0.0T/MM3 Turbidity < 20 Sodium Level 143MEQ/L Potassium Level 3.9MEQ/L Chloride Level 104MEQ/L Carbon Dioxide Level 26MEQ/L Anion Gap 13MEQ/L Blood Urea Nitrogen 21.0MG/DL Creatinine 1.1MG/DL Glomerular Filtration Rate Calc 66 BUN/Creatinine Ratio 19RATIO Glucose Level 153MG/DL Calculated Osmolality 281MOSM/KG Calcium Level 9.4MG/DL Total Bilirubin 0.70MG/DL Icterus Index < 2 Aspartate Amino Transf (AST/SGOT) 26U/L Alanine Aminotransferase (ALT/SGPT) 45U/L Alkaline Phosphatase 109U/L Total Protein 6.9G/DL Albumin 4.3G/DL Globulin 2.6G/DL Albumin/Globulin Ratio 1.7RATIO Lipase 151U/L Chemistry Specimen Hemolysis < 15 Urine Collection Type Cleancatch-midstream Urine Color Yellow Urine Turbidity Clear Urine pH 5.0 Urine Specific [place] 1.025 Urine Protein Negative Urine Glucose (UA) Negative Urine Ketones Negative Urine Blood 1+ Urine Nitrite Negative Urine Bilirubin Negative Urine Urobilinogen 0.2EU/DL Urine Leukocyte Esterase Negative Urine RBC 1-3/HPF Urine WBC None seen/HPF Urine Bacteria None seen Urine Culture Indicated Cult not indicated Plasma Lactate 1.1MMOL/L Procalcitonin < 0.05NG/ML Medications Current ED Medications Sodium Chloride (Normal Saline IV) 1,000 ml @ 0 mls/hr Q0M ONCE IV Last administered on 5/21/17at 23:25; Start 02/20/17 at 22:57; Stop 02/20/17 at 23:00 ; Status DC Fentanyl (Fentanyl) 25 mcg O ONCE IV ; Start 02/20/17 at 23:00; Stop 02/20/17 at 23:01; Status Cancel Ondansetron HCl (Zofran) 4 mg O ONCE IV Last administered on 02/20/17 23:26; Start 02/20/17 at 23:00; Stop 02/20/17 at 23:01; Status DC Iohexol 1 bottle 1 bottle STK-MED ONCE .ROUTE ; Start 02/20/17 at 23:11; Stop at 23:12; Status DC Sodium Chloride (NS) 100 ml @ As Directed STK-MED ONCE .ROUTE ; Start 02/20/17 at 23:11; Stop 02/20/17 at 23:12; Status DC Sodium Chloride (Iv Flush) 10 ml STK-MED ONCE .ROUTE ; Start 02/20/17 at 23:12; Stop 02/20/17 at 23:13; Status DC Fentanyl (Fentanyl) 50 mcg O ONCE IV Last administered on 02/20/17 23:27; Start 02/20/17 at 23:15; Stop 02/20/17 at 23:16; Status DC Morphine Sulfate (Morphine) 4 mg O ONCE IV Last administered on 02/21/17 00: 42; Start 02/21/17 at 00:45; Stop 02/21/17 at 00:46; Status DC Consult/PCP Consult/PCP #1: Physician Contacted: Dr. Muñoz Time Called: 00:33 Time of first response: 00:35 Type of discussion: Phone Consult/PCP Discussion Details Agreed that pt needs to be eval'ed by Gen Surg. Has been having fevers to 103- 104 with shaking chills; does not feel comfortable eval/operating today. Recommends contacting another surgeon; txfr if not able to contact. Consult/PCP #2: Physician Contacted: Gen Surg (Dr. Robertson) Time Called: 00:39 Time of first response: 00:45 Type of discussion: Phone Consult/PCP Discussion Details Recommends txfr to [facility] since pts regular GS is not available, pt is on plavix, and concern for incarceration. High risk surgery without specialty ancillary service. Consult/PCP #3: Physician Contacted: [place] Time Called: 00:39 Time of first response: 00:39 Type of discussion: Phone Consult/PCP Discussion Details Discussed findings. Consult/PCP #4: Physician Contacted: [facility] (Dr. Graves) Time Called: 01:03 Time of first response: 01:12 Type of discussion: Admit Discussion/PCP Discussion Details Will accept pt for txfr. CT CT : CT: Abd/Pelvis IV contrast Interpretation: Abnormal (Distal SBO; consider closed loop or internal hernia with short segment of ischemia.), Discussed w/ Radiologist, Reviewed Written Report ELIZABETH CEE DO February 20, 2017 23:33
[2017-02-20 23:39] LABS: BLOOD, URINE 1+ (NEGATIVE); COLOR,URINE YELLOW (YELLOW); LEUKOCYTE ESTERASE ,URINE NEGATIVE (NEGATIVE); NITRITE,URINE NEGATIVE (NEGATIVE); UROBILINOGEN,URINE 0.2 EU/DL (NORMAL)
[2017-02-20 23:46] LABS: BACTERIA,URINE NONE SEEN (NEGATIVE); WBC,URINE NONE SEEN /HPF (0-5)
--- NOTE | 2017-02-21 00:12 | NUR ---
IMAGING PT LEAVES WITH IMAGING STAFF AT THIS TIME.
--- NOTE | 2017-02-21 00:25 | NUR ---
RETURN PT RETURNS TO ROOM.
--- NOTE | 2017-02-21 00:35 | NUR ---
STATUS PT REPORTS NO RELIEF OF PAIN, PROVIDER NOTIFIED.
[2017-02-21] MEDS ORDERED: MORPHINE SULFATE 4 MG SYRINGE IV ONE (00:45)
--- NOTE | 2017-02-21 01:00 | NUR ---
VOID PT VOIDS USING URINAL IN BED.
--- NOTE | 2017-02-21 01:03 | NUR ---
LAB IN ROOM TO DRAW ADDITIONAL BLOOD NEEDED AT THIS TIME.
--- NOTE | 2017-02-21 01:29 | NUR ---
911 CONTACTED FOR PT TRANSFER AT THIS TIME.
--- NOTE | 2017-02-21 01:40 | NUR ---
EMS ARRIVAL EMS ARRIVE TO TYPESETTING MACHINE TENDER PT AT THIS TIME.
[2017-02-21 01:46] VITALS: BP 141/83; PULSE 64; RESP 16; O2SAT 100
--- NOTE | 2017-02-21 01:46 | NUR ---
DEPART PT LEAVES WITH TONIA NICHOLE AT THIS TIME FOR TRANSFER.
--- NOTE | 2017-02-21 01:50 | NUR ---
REPORT GIVEN TO PANCHITO JOSE AT THIS TIME.
--- NOTE | 2017-02-21 08:11 | DI ---
Indication: ITS.REASON: LLQ pain CT ABD/PELVIS W/CONTRAST ONLY: Comparison: 02/07/2015 CT abdomen pelvis Technique: Patient scanned from above the diaphragm after 75 cc Omni 300 intravenous contrast is utilized. Dose reduction imaging technology is used as well as reformatted sagittal and coronal image planes. Findings: Patient shows normal heart size with arteriosclerotic calcifications appreciated. Lungs showed extensive chronic changes some bilaterally. Sizable hiatal hernia is appreciated. Liver is homogeneous in texture. Gallbladder is contracted but showed no obvious stones. Spleen is unremarkable with arteriosclerotic calcifications identified in the splenic artery. Pancreas is unremarkable. Adrenal glands are unremarkable. Both kidneys excrete the contrast in a similar pattern. Small left-sided cortical cyst is seen measuring a centimeter and of doubtful acute significance. Retroperitoneum was showing arteriosclerotic calcifications in the aorta but no aneurysm or leakage appreciated. Distended loops of small bowel are also seen which are somewhat nonspecific but could be seen with a partial small bowel obstruction. Distended loops of bowel with diverticulosis and potential mild diverticulitis. No significant free air or free fluid. Bladder contour was unremarkable. Fairly extensive calcification seen in the prostate. Reformatted imaging showed multilevel degenerative disc changes in the lumbar spine. Impression: 1. Dilated loops of fluid-filled small bowel suggesting a partial small bowel obstruction involving the distal small bowel. 2. Extensive diverticulosis and possible mild superimposed diverticulitis involving the distal bowel. 3. Findings were communicated to ordering clinician by the stat rad service on a callback basis. .
== END 2017-02-21 01:50 | disposition home or self-care (01) ==
LOC: ED 21:57
DX: K56.60 Unspecified intestinal obstruction (principal); K55.9 Vascular disorder of intestine, unspecified
CPT/HCPCS: 36415; 74177; 80053; 81001; 83605; 83690; 84145; 85025; 96361; 96374; 96375; 99285; J2405; J3010; J7030; J7050; Q9967

== ENCOUNTER 2017-11-15 20:37 | Observation (INO) ==
[2017-11-15] MEDS ORDERED: RANITIDINE 150 MG TABLET PO ONE (20:53)
[2017-11-15] MEDS ORDERED: ASPIRIN 81 MG CHEWABLE TABLET PO ONE (20:53)
--- NOTE | 2017-11-15 20:57 | Emergency Department Report ---
Chest Pain HPI - General Chief Complaint: Chest Pain Stated Complaint: 00 Time Seen by Provider: 11/15/17 20:40 Source: patient, family Limitations: no limitations - History of Present Illness HPI narrative: 90 min ago the patient began having right deep heaviness in the chest while at rest. Patient took one nitroglycerin at home that significantly improved the pain for approximately 10 minutes than the patient's pain recurred. He took second nitroglycerin without improvement. Patient currently complains of a 6 out of 10 pain/heaviness, that reminds him of when he had his chest pain and cardiac stent 2 years ago. Patient has no other symptoms, no lightheadedness dizziness cough congestion fevers nausea vomiting or diarrhea, no GERD-like symptoms, no abdominal complaints, no limb pain or neurologic symptoms.. - Related Data Home Medications Medication Instructions Recorded Confirmed Atorvastatin Calcium 40 mg PO HS #0 tab 10/07/16 11/15/17 Clopidogrel Bisulfate [Clopidogrel] 75 mg PO DAILY #0 tab 10/07/16 11/15/17 Nitroglycerin 0.4 mg SL Q5MIN3 PRN #0 tab 10/07/16 11/15/17 Aspirin 81 mg PO DAILY 11/15/17 11/15/17 Bisoprolol [Zebeta] 2.5 mg PO DAILY 11/15/17 11/15/17 Ciprofloxacin HCl [Cipro] 500 mg PO BID 11/15/17 11/15/17 Ferrous Sulfate [Iron] 325 mg PO BID 11/15/17 11/15/17 Pantoprazole Sodium [Protonix] 40 mg PO ACBID 11/15/17 11/15/17 Tamsulosin [Flomax] 0.4 mg PO HS 11/15/17 11/15/17 Allergies Allergy/AdvReac Type Severity Reaction Status Date / Time hydrocodone AdvReac Unknown NAUSEA & Verified 11/15/17 21:03 VOMITING Review of Systems All systems: reviewed and negative except as stated PFSH Patient Stated Medical History Cataracts Yes: HX OF Coronary Artery Disease Yes: stent x 1 Hypertension Yes Chronic Obstructive Pulmonary Yes Disease (COPD) Pneumonia Yes: HX OF Sleep Apnea No Gastroesophageal Reflux Yes Disease Obstructive Bowel Yes: HX OF SMALL INTESTINAL BLOCKAGE Hx Benign Prostatic Yes Hyperplasia Anemia Yes Osteoarthritis Yes Clinic Medical History (Last Updated 10/12/17 @ 15:01 by JONATHAN Ramirez) Cancer of colon (Acute Medical) Thrombocytopenia (Chronic Medical) Depression (Chronic Medical) Nocturia (Chronic Medical) Osteoarthritis (Chronic Medical) Hypercholesteremia (Chronic Medical) BPH (benign prostatic hyperplasia) (Chronic Medical) COPD (chronic obstructive pulmonary disease) (Chronic Medical) GERD (gastroesophageal reflux disease) (Chronic Medical) CAD (coronary artery disease) (Chronic Medical) Anemia (Chronic Medical) Surgical History: excision of small intestine 02/22/17. heart cath/coronary stent 09/14/16. EGD 01/17/15. motility esophageal 12/12/14. colonoscopy and egd 03/25/2008. colectomy 2003. appendectomy. cataract removal. hernia repair x2. left heel surgery. vasectomy Family History: Family History (Last Updated 10/25/17 @ 13:45 by Lorenza Interiano APRN) Father Heart attack Diabetes Mother Stroke - Social History Smoking status: Former smoker Substance use type: does not use Alcohol intake frequency: does not drink Physical Exam - Limitations Limitations: no limitations - General General appearance: alert - Normal Exams: Head:: Normocephalic without trauma Eyes:: Pupils are PERRLA w/ EOMI, No scleral icterus, irritation, or foreign bodies noted ENMT:: No facial trauma, nasal exudates, pharyngeal erythema, or exudates are noted Neck:: Full range of motion, without adenopathy, JVD, bruits or thyromegaly Chest/Respirations:: Clear all brew[place], with good airflow, and symmetry bilaterally Cardiovascular:: Regular rate and rhythm, without murmur or gallop, Pulses 2+ all extremities, capillary refill, <2 seconds all extremities Abdomen:: Bowel sounds positive, soft, non-tender, non-distended, no hepatosplenomegaly, masses or bruits noted Lymphatic:: No lymphadenopathy, or lymphedema noted Musculoskeletal:: No tenderness, or deformity noted, good range of motion, all extremities Integumentary:: No rashes, hives, or bruising noted, hair and nails, without abnormality Neurological:: Patient is alert, and oriented, cranial nerves, motor/sensory/ cerebellar, exams w/o gross deficits, to observation Psychiatric:: Patient exhibits, appropriate attention, emotion and affect Course Vital Signs Temperature 98 F 11/15/17 20:39 Pulse Rate 70 11/15/17 20:39 Respiratory Rate 18 11/15/17 20:39 Blood Pressure 137/73 11/15/17 20:39 Pulse Oximetry 100 11/15/17 20:39 Temperature 98 F 11/15/17 20:39 Pulse Rate 75 11/15/17 21:15 Respiratory Rate 20 11/15/17 21:15 Blood Pressure 100/64 11/15/17 21:15 Pulse Oximetry 98 11/15/17 21:15 Chest Pain - MDM Narrative Medical decision making narrative: EKG shows a normal sinus rhythm without ischemic, ectopy, or infarction Patient given the remainder of 324 mg aspirin, Reglan/Zantac, and sublingual nitroglycerin CBC - n CMP/L - n Troponin -n CXR - n Patient had essentially no relief after aspirin Reglan and Zantac and supple in all nitroglycerin. Reexamination reveals minimal right peristernal intercostal tenderness, but the patient states that this is not the same type of pain that he describes as a heaviness internally. Pt given 2mg MS for ongoing 5/10 pain Discussed with Daniela Villela APRN - Will admit to floor, outpatient on telemetry and monitor with MS for pain - Lab Data Result diagrams: 11/15/17 20:59 11/15/17 20:59 Lab Results 11/15/17 11/15/17 Range/Units 20:59 20:59 WBC 6.6 (4.5-11.0) T/MM3 RBC 4.12 L (4.50-5.90) M/MM3 Hgb 13.8 (13.5-17.5) GM/DL Hct 40.3 L (41-53) % MCV 97.8 (80-100) UM3 MCH 33.5 (26-34) UUG MCHC 34.2 (31-37) GM/DL RDW Std Deviation 43.5 (36.9-50.2) FL Plt Count 174 (130-400) T/MM3 MPV 10.5 (9.4-12.4) UM3 Immature Gran % (Auto) 0.2 (0.0-0.5) % Neut % (Auto) 67.8 H (33-66) % Lymph % (Auto) 23.7 (23-45) % [place] % (Auto) 6.8 (0-9.0) % Eos % (Auto) 1.5 (0-4) % Baso % (Auto) 0.0 (0-2) % Neut # (Auto) 4.5 (1.8-7.7) T/MM3 Lymph # (Auto) 1.6 (1-4.8) T/MM3 [place] # (Auto) 0.5 (0-0.8) T/MM3 Eos # (Auto) 0.1 (0-0.5) T/MM3 Baso # (Auto) 0.0 (0-0.2) T/MM3 Abs Immat Gran (auto) 0.01 (0.00-0.03) T/MM3 Turbidity < 20 (0-20) Sodium 144 (134-144) MEQ/L Potassium 3.9 (3.6-5) MEQ/L Chloride 103 (98-107) MEQ/L Carbon Dioxide 30 (22-30) MEQ/L Anion Gap 11 (5-15) MEQ/L BUN 17.0 (9-20) MG/DL Creatinine 0.9 (0.8-1.5) MG/DL GFR Calculation 82 BUN/Creatinine Ratio 19 (6-26) RATIO Glucose 124 H (75-110) MG/DL Calculated Osmolality 280 (261-280) MOSM/KG Calcium 8.7 (8.4-10.2) MG/DL Total Bilirubin 0.60 (0.20-1.30) MG/DL Conjugated Bilirubin 0.00 (0.00-0.30) MG/DL Unconjugated Bilirubin 0.30 (0.00-1.1) MG/DL Icterus Index < 2 (0-7) AST 30 (17-59) U/L ALT 24 (21-72) U/L Alkaline Phosphatase 90 (38-126) U/L Troponin I 0.019 (0-0.12) ng/ml Total Protein 6.8 (6.3-8.2) G/DL Albumin 4.0 (3.5-5.0) G/DL Globulin 2.8 (2.4-3.6) G/DL Albumin/Globulin Ratio 1.4 (1.1-2.2) RATIO Lipase 104 (23-300) U/L Specimen Hemolysis 121 H (0-25) Disposition Clinical Impression: Chest pain Qualifiers: Chest pain type: unspecified Qualified Code(s): R07.9 - Chest pain, unspecified Disposition: 02 To [facility] [place] Condition: Improved Prescriptions: No Action Atorvastatin Calcium 40 mg PO HS #0 tab Clopidogrel Bisulfate [Clopidogrel] 75 mg PO DAILY #0 tab Nitroglycerin 0.4 mg SL Q5MIN3 PRN #0 tab PRN Reason: Chest Pain Bisoprolol [Zebeta] 2.5 mg PO DAILY Aspirin 81 mg PO DAILY Tamsulosin [Flomax] 0.4 mg PO HS Ciprofloxacin HCl [Cipro] 500 mg PO BID Pantoprazole Sodium [Protonix] 40 mg PO ACBID Ferrous Sulfate [Iron] 325 mg PO BID Referrals: Pop Vizcaino MD [Family Provider] - - Seen By: physician
[2017-11-15] MEDS: NITROGLYCERIN 0.4 MG SUBLINGUAL TABLET SL PRN ×3 (21:04→21:24)
[2017-11-15] MEDS: SALINE FLUSH 10ml SYRINGE IVF PRN ×2 (21:05→21:45)
[2017-11-15] MEDS ORDERED: NS 1,000 ML IV ONE (21:11)
[2017-11-15] MEDS ORDERED: MORPHINE SULFATE 2mg INJECTION IVP ONE (21:39)
[2017-11-15 22:34] VITALS: BMI 23.0
[2017-11-15] MEDS ORDERED: ONDANSETRON 4 MG/2 ML INJECTION IVP PRN (22:34)
[2017-11-15] MEDS ORDERED: MORPHINE SULFATE 4mg INJECTION IVP PRN (22:34)
[2017-11-15] MEDS ORDERED: ACETAMINOPHEN 325 MG TABLET PO PRN (22:34)
[2017-11-15] MEDS ORDERED: NITROGLYCERIN 0.4 MG SUBLINGUAL TABLET SL PRN (22:40)
[2017-11-15 22:42] VITALS: O2SAT 98
[2017-11-16] MEDS: SALINE FLUSH 10ml SYRINGE IVF PRN (00:30)
[2017-11-16 05:10] VITALS: RESP 16
[2017-11-16] MEDS ORDERED: PANTOPRAZOLE 40 MG TABLET PO SCH (06:30)
[2017-11-16] MEDS ORDERED: CIPROFLOXACIN 500 MG TABLET PO SCH (07:00)
--- NOTE | 2017-11-16 08:01 | XRay Report ---
Indication: right peristernal chest pain PROCEDURE: XR chest 1V: Encounter: Initial Comparison: February 06, 2015 Findings: The lungs are stable in appearance without new focal airspace consolidation. Hyperinflation suggesting COPD. There is no pleural effusion or pneumothorax. The heart size, pulmonary vascularity and mediastinal contours are unchanged. IMPRESSION: Stable appearance of the chest without acute cardiopulmonary disease. .
[2017-11-16 08:03] VITALS: BP 126/70; TEMP 98.1
[2017-11-16] MEDS ORDERED: CLOPIDOGREL 75 MG TABLET PO SCH (09:00)
[2017-11-16] MEDS ORDERED: ASPIRIN 81 MG CHEWABLE TABLET PO SCH (09:00)
[2017-11-16 09:25] VITALS: PULSE 55
--- NOTE | 2017-11-16 09:28 | Cardiology History & Physical ---
History of Present Illness Chief complaint: chest pain HPI: Zack is a 72 year old male with carotid artery stenosis, HTN and HLD who presented to the ED for evaluation of chest pain. He reports the pain as a quick sharp pain when yawns or takes a deep breath. He took one nitroglycerin at home that significantly improved the pain for approximately 10 minutes then his pain recurred. He took second nitroglycerin without improvement. He had no other symptoms, no radiation, dyspnea, no lightheadedness, dizziness, cough, congestion, fevers, nausea, vomiting or diarrhea. He reports loose stools since January until Last when he had a colonoscopy and since he has had formed stools. Review of Systems - Constitutional Constitutional: Absent: chills, fever(s) - EENMT Eyes: Absent: change in vision Balance: Absent: vertigo Mouth/Throat: Absent: sore throat - Cardiovascular Cardiovascular: Present: chest pain. Absent: palpitations, syncope, dyspnea on exertion, orthopnea, heart murmur Rhythm: Absent: abnormal rhythm Vascular: Absent: pedal edema - Respiratory Respiratory: Absent: cough, dyspnea - Gastrointestinal Gastrointestinal: Absent: abdominal pain, constipation, nausea, vomiting - Genitourinary Genitourinary: Absent: dysuria - Integumentary/Breasts Integumentary: Absent: rash - Neurological Neurological: Absent: dizziness - Endocrine Endocrine: Absent: palpitations PFSH Patient Stated Medical History Cataracts Yes: bi-lat Coronary Artery Disease Yes: stent x 1 Hypertension Yes Pneumonia Yes: hx Sleep Apnea No Gastroesophageal Reflux Yes Disease Obstructive Bowel Yes: HX OF SMALL INTESTINAL BLOCKAGE Hx Benign Prostatic Yes Hyperplasia Anemia Yes Osteoarthritis Yes Clinic Medical History (Last Updated 10/12/17 @ 15:01 by Ellyn Lopez [facility]) Cancer of colon (Acute Medical) Thrombocytopenia (Chronic Medical) Depression (Chronic Medical) Nocturia (Chronic Medical) Osteoarthritis (Chronic Medical) Hypercholesteremia (Chronic Medical) BPH (benign prostatic hyperplasia) (Chronic Medical) COPD (chronic obstructive pulmonary disease) (Chronic Medical) GERD (gastroesophageal reflux disease) (Chronic Medical) CAD (coronary artery disease) (Chronic Medical) Anemia (Chronic Medical) Surgical History: excision of small intestine 02/22/17. heart cath/coronary stent 09/14/16. EGD 01/17/15. motility esophageal 12/12/14. colonoscopy and egd 03/25/2008. colectomy 2004. appendectomy. cataract removal. hernia repair x2. left heel surgery. vasectomy Family History: Family History (Last Updated 10/25/17 @ 13:45 by Lorenza Interiano APRN) Father Heart attack Diabetes Mother Stroke - Social History Smoking status: Never smoker Substance use type: does not use Alcohol intake frequency: does not drink Housing: house Household members: significant other Current occupational status: employed Current occupation: commercial driver's license driver Current residence: Apartment/Private Home Medications Home Medications Medication Instructions Recorded Confirmed Type Atorvastatin Calcium 40 mg PO HS #0 tab 10/07/16 11/18/17 History Clopidogrel Bisulfate [Clopidogrel] 75 mg PO DAILY #0 tab 10/07/16 11/18/17 History Nitroglycerin 0.4 mg SL Q5MIN3 PRN #0 tab 10/07/16 11/18/17 History Aspirin 81 mg PO DAILY 11/15/17 11/18/17 History Bisoprolol [Zebeta] 2.5 mg PO DAILY 11/15/17 11/18/17 History Ciprofloxacin HCl [Cipro] 500 mg PO BID 11/15/17 11/18/17 History Ferrous Sulfate [Iron] 325 mg PO BID 11/15/17 11/18/17 History Pantoprazole Sodium [Protonix] 40 mg PO ACBID 11/15/17 11/18/17 History Tamsulosin [Flomax] 0.4 mg PO HS 11/15/17 11/18/17 History Allergies Allergy/AdvReac Type Severity Reaction Status Date / Time hydrocodone AdvReac Unknown NAUSEA & Verified 11/18/17 10:26 VOMITING Exam Vital signs: Temperature 98.1 F 11/16/17 08:00 Pulse Rate 54 L 11/16/17 08:00 Respiratory Rate 16 11/16/17 08:00 Blood Pressure 126/70 11/16/17 08:00 Pulse Oximetry 98 11/16/17 08:00 - Constitutional no acute distress, well nourished, cooperative - Routine HEENT Exam Head: Present: normocephalic ENT: Present: mucous membranes moist - Routine Neck Exam Absent: JVD, carotid bruit - Routine Chest/Breast/Axilla Exam Chest wall: Absent: tenderness - Routine Respiratory Exam Present: CTA bilaterally. Absent: dyspnea, rales, wheezes, crackles - Routine Cardiovascular Exam Absent: RRR, no murmur, JVD - Routine Abdominal Exam Present: soft, normoactive bowel sounds - Routine Extremities Exam Present: no edema - Routine Skin Exam Present: intact, dry, warm - Routine Neurological Exam Present: alert, oriented X3 - Routine Psychiatric Exam Present: normal affect, normal thought process Results 11/16/17 04:23 11/16/17 04:23 Cardiac Enzymes 11/16/17 Range/Units 04:23 Troponin I 0.019 (0-0.12) ng/ml B-Natriuretic Peptide 530 H (0-175) pg/mL Coagulation 11/16/17 Range/Units 04:23 B-Natriuretic Peptide 530 H (0-175) pg/mL Lipids 11/16/17 Range/Units 04:23 Triglycerides 74 (40-160) MG/DL Cholesterol 83 L (132-199) MG/DL HDL Cholesterol 40 (40-60) MG/DL Cholesterol/HDL Ratio 2.1 (0-5.0) RATIO CBC 11/16/17 Range/Units 04:23 WBC 4.0 L (4.5-11.0) T/MM3 RBC 3.70 L (4.50-5.90) M/MM3 Hgb 12.1 L D (13.5-17.5) GM/DL Hct 36.3 L (41-53) % Plt Count 154 (130-400) T/MM3 Comprehensive Metabolic Panel 11/16/17 Range/Units 04:23 Sodium 143 (134-144) MEQ/L Potassium 3.2 L (3.6-5) MEQ/L Chloride 108 H (98-107) MEQ/L Carbon Dioxide 27 (22-30) MEQ/L BUN 14.0 (9-20) MG/DL Creatinine 0.8 (0.8-1.5) MG/DL Glucose 95 (75-110) MG/DL Calcium 8.2 L (8.4-10.2) MG/DL Intake and Output 11/15/17 11/16/17 11/16/17 22:59 06:59 14:59 Intake Total 1000 / 1000 Balance 1000 / 1000 Intake: IV 1000 / 1000 Ns 1,000 ml @ 999.9 mls/hr IV . 1000 / 1000 Q1H ONE Rx#:[id number] Other: # Voids 1 1 1 Weight 142 lb 13.753 oz 147 lb 7.828 oz Patient Weight 11/17/17 06:59 Weight 147 lb 7.828 oz - Imaging and Cardiology Echo: pending Imaging & Cardiology Narrative: Date of Exam: 11/15/17 Ordering Provider: Brendan Walden MD Type of Exam(s): XR chest 1V Reason for Exam(s): right peristernal chest pain Indication: right peristernal chest pain PROCEDURE: XR chest 1V: Encounter: Initial Comparison: February 06, 2015 Findings: The lungs are stable in appearance without new focal airspace consolidation. Hyperinflation suggesting COPD. There is no pleural effusion or pneumothorax. The heart size, pulmonary vascularity and mediastinal contours are unchanged. IMPRESSION: Stable appearance of the chest without acute cardiopulmonary disease. 11/16/17 11:19 EKG interpretations - EKG EKG results cardiology: WNL, sinus rhythm Hospital Course This is a general summary of the patient's hospital course. For more details refer to the complete medical record. Assessment and Plan - Attestation Attestation Narrative: 11/21/17 10:11 Recommendation After examining the patient I agree with the above assessment. I am involved in the formulation of the patient's plan of care. - Assessment and Plan (1) Chest pain Status: Acute Quick sharp sternal pain with deep breath, yawn or cough, not likely cardiac - Negative Troponin - EKG SR, WNL - 2D echo (2) CAD (coronary artery disease) Status: Chronic Stent to proximal LAD 09/14/16 - Takes Plavix and Aspirin daily as prescribed (3) Hypercholesteremia Status: Chronic Takes Atorvastatin 40mg daily - PCP manages (4) GERD (gastroesophageal reflux disease) Status: Chronic
[2017-11-16] MEDS ORDERED: --POM--ASPIRIN *EC* 81 MG TABLET PO SCH (10:15)
[2017-11-16] MEDS ORDERED: --POM--CLOPIDOGREL 75 MG TABLET PO SCH (10:30)
[2017-11-16] MEDS ORDERED: BISOPROLOL 5 MG PO SCH (10:30)
[2017-11-16] MEDS ORDERED: PNEUMOCOCCAL 13 VACCINE 0.5ml INJECTION IM ONE (13:00)
[2017-11-16] MEDS ORDERED: PNEUMOCOCCAL VAC ADMIN CHARGE INJ ONE (13:36)
--- NOTE | 2017-11-16 14:05 | Discharge Summary ---
<Beverly Matthews - Last Filed: 11/16/17 14:02> Discharge Information Date of admission: 11/15/17 21:47 Anticipated date of discharge: 11/16/17 Attending Physician: Javed Ferguson MD Primary care physician: Pop Vizcaino MD - Discharge Diagnosis (1) Chest pain Status: Acute (2) CAD (coronary artery disease) Status: Chronic (3) Hypercholesteremia Status: Chronic (4) GERD (gastroesophageal reflux disease) Status: Chronic precordial pain - Laboratory Labs: 11/16/17 04:23 11/16/17 04:23 History of Present Illness HPI: Zack is a 72 year old male with carotid artery stenosis, HTN and HLD who presented to the ED for evaluation of chest pain. He reports the pain as a quick sharp pain when yawns or takes a deep breath. He took one nitroglycerin at home that significantly improved the pain for approximately 10 minutes then his pain recurred. He took second nitroglycerin without improvement. He had no other symptoms, no radiation, dyspnea, no lightheadedness, dizziness, cough, congestion, fevers, nausea, vomiting or diarrhea. He reports loose stools since January until Last when he had a colonoscopy and since he has had formed stools. Hospital Course This is a general summary of the patient's hospital course. For more details refer to the complete medical record. Hospital course: (1) Chest pain Current visit: Yes Status: Acute Quick sharp sternal pain with deep breath, yawn or cough, not likely cardiac - Negative Troponin - EKG SR, WNL - 2D echo (2) CAD (coronary artery disease) Current visit: No Status: Chronic Stent to proximal LAD 09/14/16 - Takes Plavix and Aspirin daily as prescribed (3) Hypercholesteremia Current visit: No Status: Chronic Takes Atorvastatin 40mg daily - PCP manages (4) GERD (gastroesophageal reflux disease) Current visit: No Status: Chronic Time spent with patient: 25 - 35 minutes Resuscitation Status: Full Code Exam Vital signs: Temperature 98.1 F 11/16/17 08:00 Pulse Rate 55 L 11/16/17 08:00 Respiratory Rate 16 11/16/17 08:00 Blood Pressure 126/70 11/16/17 08:00 Pulse Oximetry 98 11/16/17 08:00 - Constitutional no acute distress, well nourished, cooperative - Routine HEENT Exam Head: Present: normocephalic ENT: Present: mucous membranes moist - Routine Neck Exam Absent: JVD, carotid bruit - Routine Chest/Breast/Axilla Exam Chest wall: Absent: tenderness - Routine Respiratory Exam Present: CTA bilaterally. Absent: rales, wheezes - Routine Cardiovascular Exam Present: RRR, no murmur. Absent: JVD - Routine Abdominal Exam Present: soft, normoactive bowel sounds - Routine Extremities Exam Present: no edema - Routine Skin Exam Present: intact, dry, warm - Routine Neurological Exam Present: alert, oriented X3 - Routine Psychiatric Exam Present: normal affect, normal thought process Results 11/16/17 04:23 11/16/17 04:23 Cardiac Enzymes 11/16/17 Range/Units 04:23 Troponin I 0.019 (0-0.12) ng/ml B-Natriuretic Peptide 530 H (0-175) pg/mL Coagulation 11/16/17 Range/Units 04:23 B-Natriuretic Peptide 530 H (0-175) pg/mL Lipids 11/16/17 Range/Units 04:23 Triglycerides 74 (40-160) MG/DL Cholesterol 83 L (132-199) MG/DL HDL Cholesterol 40 (40-60) MG/DL Cholesterol/HDL Ratio 2.1 (0-5.0) RATIO CBC 11/16/17 Range/Units 04:23 WBC 4.0 L (4.5-11.0) T/MM3 RBC 3.70 L (4.50-5.90) M/MM3 Hgb 12.1 L D (13.5-17.5) GM/DL Hct 36.3 L (41-53) % Plt Count 154 (130-400) T/MM3 Comprehensive Metabolic Panel 11/16/17 Range/Units 04:23 Sodium 143 (134-144) MEQ/L Potassium 3.2 L (3.6-5) MEQ/L Chloride 108 H (98-107) MEQ/L Carbon Dioxide 27 (22-30) MEQ/L BUN 14.0 (9-20) MG/DL Creatinine 0.8 (0.8-1.5) MG/DL Glucose 95 (75-110) MG/DL Calcium 8.2 L (8.4-10.2) MG/DL Intake and Output 11/15/17 11/16/17 11/16/17 22:59 06:59 14:59 Intake Total 1000 / 1000 Balance 1000 / 1000 Intake: IV 1000 / 1000 Ns 1,000 ml @ 999.9 mls/hr IV . 1000 / 1000 Q1H ONE Rx#:[id number] Other: # Voids 1 1 1 Weight 142 lb 13.753 oz 147 lb 7.828 oz Patient Weight 11/17/17 06:59 Weight 147 lb 7.828 oz - Imaging and Cardiology Echo: pending Imaging & Cardiology Narrative: Date of Exam: 11/15/17 Ordering Provider: Brendan Walden MD Type of Exam(s): XR chest 1V Reason for Exam(s): right peristernal chest pain Indication: right peristernal chest pain PROCEDURE: XR chest 1V: Encounter: Initial Comparison: February 06, 2015 Findings: The lungs are stable in appearance without new focal airspace consolidation. Hyperinflation suggesting COPD. There is no pleural effusion or pneumothorax. The heart size, pulmonary vascularity and mediastinal contours are unchanged. IMPRESSION: Stable appearance of the chest without acute cardiopulmonary disease. . 11/16/17 14:02 Discharge Plan - Med Rec/Dispo Referrals/Follow Up: Javed Ferguson MD [Physician] - 11/29/17 8:50 am [facility] Instructions: Chest Pain (DC) Prescriptions: Continue Atorvastatin Calcium 40 mg PO HS #0 tab Clopidogrel Bisulfate [Clopidogrel] 75 mg PO DAILY #0 tab Nitroglycerin 0.4 mg SL Q5MIN3 PRN #0 tab PRN Reason: Chest Pain Bisoprolol [Zebeta] 2.5 mg PO DAILY Aspirin 81 mg PO DAILY Tamsulosin [Flomax] 0.4 mg PO HS Ciprofloxacin HCl [Cipro] 500 mg PO BID Pantoprazole Sodium [Protonix] 40 mg PO ACBID Ferrous Sulfate [Iron] 325 mg PO BID - Disposition 01 Discharged Home, Self-Care - Dismissal Complete Discharge Instructions are:: Complete <Javed Ferguson - Last Filed: 11/21/17 10:18> Discharge Information Date of admission: 11/15/17 21:47 Attending Physician: Javed Ferguson MD Primary care physician: Pop Vizcaino MD - Discharge Diagnosis (1) Chest pain Status: Acute (2) CAD (coronary artery disease) Status: Chronic (3) Hypercholesteremia Status: Chronic (4) GERD (gastroesophageal reflux disease) Status: Chronic - Laboratory Labs: 11/16/17 04:23 11/16/17 04:23 Hospital Course This is a general summary of the patient's hospital course. For more details refer to the complete medical record. Exam Vital signs: Temperature 98.1 F 11/16/17 08:00 Pulse Rate 55 L 11/16/17 08:00 Respiratory Rate 16 11/16/17 08:00 Blood Pressure 126/70 11/16/17 08:00 Pulse Oximetry 98 11/16/17 08:00 Results 11/16/17 04:23 11/16/17 04:23 Attestation Narriative - Attestation Attestation Narrative: 11/21/17 10:18 Recommendation After examining the patient I agree with the above assessment. I am involved in the formulation of the patient's plan of care.
--- NOTE | 2017-11-16 14:12 | Echocardiogram ---
DATE OF PROCEDURE November 16, 2017 This is a two-dimensional echo with spectral Doppler, color-flow and M-mode. It was obtained in a patient with chest pain. Left atrial dimension is increased. Left ventricular end-diastolic dimension is normal. Left ventricle wall thickness is normal. LV systolic function is normal with ejection fraction of 62%. Right atrium is normal. Right ventricle is normal. Aortic root dimension is normal. Mitral valve is morphologically normal with trace of mitral regurgitation. Aortic valve is a trileaflet structure with no stenosis. Trace of aortic insufficiency is present. Tricuspid valve shows trace of tricuspid regurgitation with normal estimated pulmonary artery systolic pressure of 25. Pulmonary valve shows no pulmonary insufficiency. There is no pericardial effusion. IMPRESSION 1. Normal LV systolic function with ejection fraction of 62%. 2. Mild left atrial dilation. 3. Trace of mitral regurgitation. 4. Trace of tricuspid regurgitation with normal estimated pulmonary artery systolic pressure of 25. 5. Trace of aortic insufficiency. MTDD
[2017-11-16] MEDS ORDERED: --POM--PANTOPRAZOLE 40 MG TABLET PO SCH (17:00)
[2017-11-16] MEDS ORDERED: --POM--ATORVASTATIN 40 MG TABLET PO SCH (21:00)
[2017-11-16] MEDS ORDERED: --POM--TAMSULOSIN 0.4 MG CAPSULE PO SCH (21:00)
== END 2017-11-16 14:50 | disposition home or self-care (01) ==
LOC: SRG 20:37 → ED 20:37 → SRG 22:30
PROVIDERS: ADMIT Internal Medicine Cardiovascular Disease; ATTEND Internal Medicine Cardiovascular Disease